=== PATIENT | male | born 1985 | race Caucasian/White ===

== ENCOUNTER 2020-12-09 02:14 | Emergency (ER) | payer MEDICAID, SELFPAY ==
[2020-12-09 03:10] VITALS: BP 97/58; PULSE 89; RESP 18; TEMP 36.3; O2SAT 97; BMI 23.3
--- NOTE | 2020-12-09 03:16 | PC.NURSE ---
MD NAYAK AT BEDSIDE FOR PRIMARY EVAL.
--- NOTE | 2020-12-09 03:22 | ED_ITS ---
HPI - General Adult General Chief complaint: General Medical Stated complaint: SOB Time Seen by Provider: 12/09/20 03:11 Source: patient Mode of arrival: ambulatory Limitations: no limitations History of Present Illness HPI narrative: Patient comes to emergency room complaining of general malaise, nausea, loose stool, stuffy nose. Patient states that a few days ago, he was prescribed amoxicillin for a toothache, patient states that he was not aware that this is penicillin which he is allergic to. Patient states that he had nausea and vomiting, denies rash, no shortness of breath, no foreign body sensation. Last dose of amoxicillin was on December 05. Patient states this afternoon patient went to [facility], had labs done, tested for COVID. Was asked to wait for results in the waiting room, patient got tired of waiting and came to the emergency room here in [place] complaint: Generalized malaise Related Data Previous Rx's Medication Instructions Recorded clindamycin HCl 300 mg PO BID 7 Days #14 cap 12/09/20 ondansetron HCl [Zofran] 4 mg PO Q8H PRN #14 tab 12/09/20 Allergies Allergy/AdvReac Type Severity Reaction Status Date / Time Penicillins [PENICILLINS] Allergy Severe HIVES Unverified 07/05/20 17:17 Review of Systems Review of Systems: Constitutional : Complaining of chills, fatigue, generalized malaise ENT/Mouth : No Hearing loss, No Ear Pain, No Nasal Congestion, No Sinus Pain, No Hoarseness, No sore throat, No Rhinorrhea, No Swallowing Difficulty Eyes: No Eye Pain, No Swelling, No Redness, No Foreign Body, No Discharge, No Vision Changes Cardiovascular : No Chest Pain, No SOB, No Dyspnea on Exertion, No Orthopnea, No Edema, No Palpitations Respiratory : No Cough, No Sputum, No Wheezing, No Smoke Exposure, No Dyspnea, complaining of nasal congestion Gastrointestinal : Complaining of nausea, vomiting, loose stools, No Constipation, No abdominal Pain, No Hematochezia, No Melena Genitourinary : no irregular bleeding, No Dysuria, No Urinary Frequency, No Hiro turia, No Urinary Incontinence, No Urgency, No Flank Pain, No Urinary Flow Changes, No Hesitancy Musculoskeletal : No joint pain, No Myalgias, No Joint Swelling Skin : No Skin Lesions, No rash Neuro : No Weakness, No Numbness, No Paresthesias, No Loss of Consciousness, No Dizziness, No Headache Psych : No Anxiety/Panic, No Depression, No SI/HI/AH/VH, No Social Issues, Heme/Lymph: No Bruising, No Bleeding,No Lymphadenopathy Endocrine : No Polyuria, No Polydipsia, No Temperature Intolerance [facility] Past Medical History Medical History Asthma Gastritis Ulcer Social History Social History Alcohol intake: never Smoking Status: Never smoker Advance Directives: No Advance Directives Information Provided: No Physical Exam Vital Signs: Vital Signs: Last Vital Signs Temp 97.4 F 12/09/20 03:10 Pulse 89 12/09/20 03:10 Resp 18 12/09/20 03:10 BP 97/58 L 12/09/20 03:10 Pulse Ox 97 12/09/20 03:10 Body Mass Index 23.3 Appearance: Alert. Oriented X3. No acute distress. Eyes: Pupils equal, round and reactive to light. ENT: Pharynx normal. Poor dentition especially in the maxillary right side Neck: Normal inspection. Neck supple. No lymph nodes noted. No crepitus CVS: Normal heart rate and rhythm. Pulses normal. Normal S1 and S2 Respiratory: No respiratory distress. Breath sounds normal. No Wheezing. No rales Abdomen: Soft and nontender. No rigidity. No distention. good BS x4 Skin: Skin warm and dry. Normal skin color. Normal skin turgor. Extremities: No lower extremity edema. No lower extremity edema. No Lacerations. No Rash Neuro: Oriented X 3. No motor deficit. No sensory deficit. Moving all extermities. No slurred speech. Course Course Course Narrative: We received patient's COVID test result from [facility], the results are negative Patient's white blood cell count elevation likely secondary to the dental infection. Patient has no URI symptoms. This time, patient no longer vomiting or feeling nauseous. No abdominal pain, no diarrhea. I discussed with the patient that I will switch his antibiotic to clindamycin Medical Decision Making Lab Data Result diagrams: 12/09/20 03:53 12/09/20 03:53 Labs: Lab Results 12/09/20 12/09/20 12/09/20 Range/Units 03:53 03:53 03:53 WBC 15.1 H (4.8-10.8) X10*3/uL RBC 5.84 H (4.60-5.80) X10*6/uL Hgb 18.1 H (14.0-18.0) g/dl Hct 50.0 (42-52) % MCV 85.6 (80-98) fL MCH 31.0 (27.0-33.0) pg MCHC 36.2 H (31.0-36.0) g/dl RDW 11.6 (11.0-16.0) % Plt Count 309 (160-400) X10*3/uL MPV 9.6 (9.4-12.4) fL Immature Gran % (Auto) 0.3 (0.0-0.4) % Neut % (Auto) 90.8 H (45-73) % Lymph % (Auto) 6.5 L (20-40) % [place] % (Auto) 2.2 (2-11) % Eos % (Auto) 0.0 (0-4) % Baso % (Auto) 0.2 (0-2) % Lymph # (Auto) 1.0 L (1.2-4.9) X10*3/uL [place] # (Auto) 0.3 (0.1-1.2) X10*3/uL Eos # (Auto) 0.0 (0.0-0.4) X10*3/uL Baso # (Auto) 0.0 (0.0-0.2) X10*3/uL Abs Immat Gran (auto) 0.05 H (0.00-0.03) X10*3/uL Absolute Neuts (auto) 13.7 H (2.0-8.3) X10*3/uL Absolute Nucleated RBC 0.000 (0.0-0.012) X10*3/uL Nucleated RBC % (auto) 0.0 (0.0-0.2) /100WBC Smear Tech's Comments VERIFIED Sodium 137 (135-145) mmol/L Potassium 4.3 (3.3-5.1) mmol/L Chloride 101 (96-108) mmol/L Carbon Dioxide 22 (22-29) mmol/L Anion Gap 18 (12-20) BUN 22 H (9-16) mg/dL Creatinine 1.32 (0.5-1.4) mg/dL Estim Creat Clear Calc 71.8 Estimated GFR > 60 Random Glucose 99 (60-115) mg/dL Calcium 9.6 (8.4-10.2) mg/dL Total Bilirubin 1.0 (0.0-1.0) mg/dL Direct Bilirubin 0.4 (0.0-0.5) mg/dL AST 20 (5-37) U/L ALT 17 (0-40) U/L Alkaline Phosphatase 78 (39-117) U/L Total Protein 7.6 (6.5-8.0) g/dL Albumin 4.6 (3.5-5.0) g/dL Lipase 5 L (8-78) U/L Discharge Plan Discharge Clinical Impression: Acute viral syndrome, Pain, dental Vomiting Qualifiers: Vomiting type: unspecified Vomiting Intractability: unspecified Nausea presence: unspecified Qualified Code(s): R11.10 - Vomiting, unspecified Patient Disposition: Home, Self-Care Instructions: Viral Syndrome (ED) Additional Instructions: Please follow-up with your primary care physician tomorrow. If you have any worsening or new symptoms, please return to the emergency room or call 911 Prescriptions: New clindamycin HCl 300 mg capsule 300 mg PO BID 7 Days Qty: 14 RF: 0 ondansetron HCl [Zofran] 4 mg tablet 4 mg PO Q8H PRN (Reason: nausea and vomiting) Qty: 14 RF: 0
[2020-12-09 04:03] LABS: Basophils Percent Auto 0.2 % (0-2); Hemoglobin 18.1 g/dl (14.0-18.0); Imm Gran Abs Auto 0.05 X10*3/uL (0.00-0.03); Imm Gran Pct Auto 0.3 % (0.0-0.4); Lymphocytes Percent Auto 6.5 % (20-40); MANUAL DIFF FLAG SCAN; Mean Corpuscular HGB Conc 36.2 g/dl (31.0-36.0); Mean Corpuscular Volume 85.6 fL (80-98); Mean Platelet Volume 9.6 fL (9.4-12.4); Monocytes Absolute Auto 0.3 X10*3/uL (0.1-1.2); Monocytes Percent Auto 2.2 % (2-11); Neutrophils Absolute Auto 13.7 X10*3/uL (2.0-8.3); Neutrophils Percent Auto 90.8 % (45-73); Platelet Count 309 X10*3/uL (160-400); Red Blood Count 5.84 X10*6/uL (4.60-5.80); Red Cell Distribution Width 11.6 % (11.0-16.0); SCAN SMEAR FLAG 1; White Blood Count 15.1 X10*3/uL (4.8-10.8)
[2020-12-09 04:10] LABS: SLIDE REVIEW VERIFIED
[2020-12-09 04:27] LABS: Alanine Aminotransferase 17 U/L (0-40); Albumin Level 4.6 g/dL (3.5-5.0); Alkaline Phosphatase 78 U/L (39-117); Anion Gap 18 (12-20); Aspartate Amino Transferase 20 U/L (5-37); Bilirubin Direct 0.4 mg/dL (0.0-0.5); Blood Urea Nitrogen 22 mg/dL (9-16); Calcium 9.6 mg/dL (8.4-10.2); Carbon Dioxide 22 mmol/L (22-29); Chloride 101 mmol/L (96-108); Creatinine Clr Calc Pharmacy 71.8; Estimated Glomerular Filt Rate > 60; Glucose Random 99 mg/dL (60-115); Lipase 5 U/L (8-78); Potassium 4.3 mmol/L (3.3-5.1); Sodium 137 mmol/L (135-145); Total Protein 7.6 g/dL (6.5-8.0)
== END 2020-12-09 05:50 | disposition home or self-care (01) ==
PROVIDERS: Emergency Provider Emergency Medicine
DX: B34.9 Viral infection, unspecified (principal); K08.89 Other specified disorders of teeth and supporting structures; R11.10 Vomiting, unspecified; R06.02 Shortness of breath; Z20.822 Contact with and (suspected) exposure to COVID-19; Z79.899 Other long term (current) drug therapy
CPT/HCPCS: 36415; 80048; 80076; 83690; 85025; 99283; 99284

== ENCOUNTER 2020-12-09 15:58 | Emergency (ER) | payer MEDICAID, SELFPAY ==
[2020-12-09] VITALS (7 sets, daily range): BP systolic 107–126; BP diastolic 64–85; PULSE 77–101; RESP 16–20; TEMP 36.5–36.8; O2SAT 97–100; BMI 23.3
--- NOTE | ~2020-12-09 | CT_ITS ---
EXAMINATION: CT ABDOMEN AND PELVIS WITH CONTRAST CLINICAL INFORMATION: Diffuse abdominal pain and leukocytosis COMPARISON: CT abdomen pelvis 08/31/2019 TECHNIQUE: Multidetector volumetric images were obtained from the superior aspect of the liver through the pubic symphysis following administration 85 mL of Omnipaque 350 intravenous contrast. Sagittal and coronal reformatted images were obtained on the technologist's workstation. Oral contrast: No This CT examination was performed using dose optimization techniques as appropriate, variously including the following: *Automated exposure control *Adjustment of mA and/or kV according to patient size (this includes techniques or standardized protocols for targeted exams where dose is matched to indication/reason for exam; i.e. extremities or head) *Use of iterative reconstruction technique DLP: 439 mGy-cm FINDINGS: LUNG BASES: The visualized lung bases are unremarkable. LIVER, GALLBLADDER, AND BILIARY TREE: The liver is normal in size, shape, and attenuation. No focal hepatic lesion or biliary ductal dilatation is present. The gallbladder is unremarkable with no evidence of radiopaque gallstones, gallbladder wall thickening, or obvious pericholecystic inflammatory changes. PANCREAS: Unremarkable. SPLEEN: Unremarkable. ADRENAL GLANDS: Unremarkable. KIDNEYS AND URETERS: The kidneys are normal in size, shape, and attenuation. No hydronephrosis, hydroureter, or calculi seen. No perinephric stranding. BLADDER: Unremarkable. GASTROINTESTINAL TRACT: The small and large bowel are unremarkable. The appendix is unremarkable. ABDOMINAL WALL: No significant hernia is appreciated. LYMPH NODES: Normal. VASCULAR: Unremarkable. PELVIC VISCERA: Unremarkable. OSSEOUS STRUCTURES: Unremarkable. CT/CT abdomen pelvis w con IMPRESSION: No significant abnormality. A cause for the patient's diffuse abdominal pain and leukocytosis has not been found.
--- NOTE | ~2020-12-09 | XR_ITS ---
EXAMINATION: XR ELBOW, RIGHT CLINICAL INFORMATION: Pain COMPARISON: None TECHNIQUE: AP, lateral, and oblique views of the right elbow. FINDINGS: Bone alignment is normal. No fracture or dislocation is seen. The joint spaces are normal. There is no joint effusion. XR/XR elbow RT min 3V IMPRESSION: Normal right elbow.
[2020-12-09 17:24] LABS: MANUAL DIFF FLAG NO
[2020-12-09 17:34] LABS: Basophils Absolute Auto 0.1 X10*3/uL (0.0-0.2); Basophils Percent Auto 0.4 % (0-2); Hematocrit 52.4 % (42-52); Hemoglobin 19.3 g/dl (14.0-18.0); Imm Gran Abs Auto 0.07 X10*3/uL (0.00-0.03); Imm Gran Pct Auto 0.4 % (0.0-0.4); Lymphocytes Absolute Auto 1.7 X10*3/uL (1.2-4.9); Lymphocytes Percent Auto 10.9 % (20-40); Mean Corpuscular HGB Conc 36.8 g/dl (31.0-36.0); Mean Corpuscular Hemoglobin 31.3 pg (27.0-33.0); Mean Corpuscular Volume 84.9 fL (80-98); Mean Platelet Volume 9.5 fL (9.4-12.4); Monocytes Absolute Auto 0.7 X10*3/uL (0.1-1.2); Monocytes Percent Auto 4.4 % (2-11); Neutrophils Absolute Auto 13.4 X10*3/uL (2.0-8.3); Neutrophils Percent Auto 83.9 % (45-73); Platelet Count 349 X10*3/uL (160-400); Red Blood Count 6.17 X10*6/uL (4.60-5.80); Red Cell Distribution Width 11.7 % (11.0-16.0)
[2020-12-09 18:02] LABS: Anion Gap 24 (12-20); Blood Urea Nitrogen 22 mg/dL (9-16); Calcium 10.1 mg/dL (8.4-10.2); Carbon Dioxide 21 mmol/L (22-29); Chloride 98 mmol/L (96-108); Creatinine Clr Calc Pharmacy 71.8; Estimated Glomerular Filt Rate > 60; Glucose Random 91 mg/dL (60-115); Sodium 139 mmol/L (135-145)
--- NOTE | 2020-12-09 19:07 | PC.NURSE ---
Pt actively vomiting in Triage. Pt was at [facility] yesterday but left prior to being seen and came to [facility]. Pt returns today and reports no relief of N/V, denies diarrhea/fever. Pt medicated with Zofran. VSS at this time.
--- NOTE | 2020-12-09 20:17 | ED_ITS ---
HPI - Nausea/Vomiting/Diarrhea General Chief complaint: Nausea/Vomiting/Diarrhea Stated complaint: vomiting blood Time Seen by Provider: 12/09/20 16:08 Source: patient Mode of arrival: ambulatory Limitations: no limitations History of Present Illness HPI Narrative: Patient history of gastritis in past when he was here had some right lower molar toothache on 12/04 took a dose of amoxicillin which he had at home patient allergic to penicillin for last 3 days patient has been throwing up was seen at [facility] and today here showed leukocytosis after reaching home patient vomited more and had bright red blood and some dark spots. Patient continued to have abdominal pain no fever no chills white counts were 16,000. Patient does not feel good unable to take anything by mouth denies any diarrhea no use of marijuana patient was seen earlier here today and change antibiotic to clindamycin. Patient does not have chronic tooth problems or swelling of the face MD elicited complaint: nausea and vomiting Description of vomiting: food contents, watery and blood-streaked Associated nausea: Yes Associated abdominal pain: Yes Location of pain: diffuse and epigastric Pain consistency: constant Severity: moderate Quality: cramping Exacerbating factors: none Relieving factors: none Related Data Previous Rx's Medication Instructions Recorded clindamycin HCl 300 mg PO BID 7 Days #14 cap 12/09/20 dicyclomine 20 mg PO QID PRN #20 tab 12/09/20 omeprazole 40 mg PO DAILY #30 cap 12/09/20 ondansetron HCl [Zofran] 4 mg PO Q8H PRN #14 tab 12/09/20 sucralfate [Carafate] 1 g PO Q6H #60 tab 12/09/20 Allergies Allergy/AdvReac Type Severity Reaction Status Date / Time Penicillins [PENICILLINS] Allergy Severe HIVES Unverified 07/05/20 17:17 Review of Systems Review of Systems: Constitutional : No Weight loss, No Fever, No Chills ENT/Mouth : No sore throat, No Rhinorrhea Eyes: No Eye Pain, No Swelling Cardiovascular : No Chest Pain, no palpitations Respiratory : No Cough, No Sputum, no shortness of breath Gastrointestinal : ++ Nausea, ++Vomiting, No Diarrhea, ++ abdominal Pain, no black stools Genitourinary : No Dysuria, No Urinary Frequency Musculoskeletal : No joint pain, No Myalgias, No Joint Swelling Skin : No Skin Lesions, No rash Neuro : No Weakness, No Numbness, No Dizziness, No Headache Psych : No Anxiety/Panic, No Depression Heme/Lymph: No Bruising, No Lymphadenopathy Endocrine : No Polyuria, No Polydipsia All other systems reviewed and are negative Gastrointestinal: Gastrointestinal: Reports nausea PMFSH Past Medical History Medical History Asthma Gastritis Ulcer Social History Social History Alcohol intake: never Smoking Status: Never smoker Use of substances other than those prescribed or required for medical reasons: No Advance Directives: No Advance Directives Information Provided: No Physical Exam Vital Signs: Vital Signs: Last Vital Signs Temp 97.8 F 12/09/20 22:31 Pulse 88 12/09/20 23:32 Resp 16 12/09/20 23:32 BP 116/64 12/09/20 23:32 Pulse Ox 97 12/09/20 22:31 Body Mass Index 23.3 APPEARANCE: ALERT. ORIENTED X3. IN MODERATE DISTRESS. EYES: PUPILS EQUAL, ROUND AND REACTIVE TO LIGHT. ENT: PHARYNX NORMAL. FILLING IN THE RIGHT LOWER MOLARS WITHOUT ANY SIGNIFICANT TENDERNESS, WITHOUT ANY GUM SWELLING NECK: NORMAL INSPECTION. NECK SUPPLE. CVS: NORMAL HEART RATE AND RHYTHM. PULSES NORMAL. RESPIRATORY: NO RESPIRATORY DISTRESS. BREATH SOUNDS NORMAL. ABDOMEN: SOFT DIFFUSE TENDERNESS EPIGASTRIC AREA DIFFUSE ABDOMEN NO RIGHT LOWER QUADRANT TENDERNESS NO REBOUND TENDERNESS OR GUARDING, BOWEL SOUNDS ARE PRESENT, NO MASS PALPABLE, NO CVA TENDERNESS SKIN: SKIN WARM AND DRY. NORMAL SKIN COLOR. NORMAL SKIN TURGOR. EXTREMITIES: NO LOWER EXTREMITY EDEMA. NEURO: ORIENTED X 3. NO MOTOR DEFICIT. NO SENSORY DEFICIT. MDM - Nausea/Vomiting/Diarrhea MDM Narrative Medical decision making narrative: Patient with history of chronic gastritis v omiting had some blood earlier H&H is stable likely from gastritis will discharge patient home on Prilosec Carafate, patient feeling much better after stay in the ER able take p.o. fluids without any vomiting Medical Records Attestation: I reviewed the patient's medical records. Lab Data Attestation: I reviewed the patient's lab results. Result diagrams: 12/09/20 17:17 12/09/20 17:17 Labs: Lab Results 12/09/20 12/09/2012/09/21 Range/Units 17:17 17:17 20:49 WBC 16.0 H (4.8-10.8) X10*3/uL RBC 6.17 H (4.60-5.80) X10*6/uL Hgb 19.3 H (14.0-18.0) g/dl Hct 52.4 H (42-52) % MCV 84.9 (80-98) fL MCH 31.3 (27.0-33.0) pg MCHC 36.8 H (31.0-36.0) g/dl RDW 11.7 (11.0-16.0) % Plt Count 349 (160-400) X10*3/uL MPV 9.5 (9.4-12.4) fL Immature Gran % (Auto) 0.4 (0.0-0.4) % Neut % (Auto) 83.9 H (45-73) % Lymph % (Auto) 10.9 L (20-40) % [place] % (Auto) 4.4 (2-11) % Eos % (Auto) 0.0 (0-4) % Baso % (Auto) 0.4 (0-2) % Lymph # (Auto) 1.7 (1.2-4.9) X10*3/uL [place] # (Auto) 0.7 (0.1-1.2) X10*3/uL Eos # (Auto) 0.0 (0.0-0.4) X10*3/uL Baso # (Auto) 0.1 (0.0-0.2) X10*3/uL Abs Immat Gran (auto) 0.07 H (0.00-0.03) X10*3/uL Absolute Neuts (auto) 13.4 H (2.0-8.3) X10*3/uL Absolute Nucleated RBC 0.000 (0.0-0.012) X10*3/uL Nucleated RBC % (auto) 0.0 (0.0-0.2) /100WBC Sodium 139 (135-145) mmol/L Potassium 4.0 (3.3-5.1) mmol/L Chloride 98 (96-108) mmol/L Carbon Dioxide 21 L (22-29) mmol/L Anion Gap 24 H (12-20) BUN 22 H (9-16) mg/dL Creatinine 1.32 (0.5-1.4) mg/dL Estim Creat Clear Calc 71.8 Estimated GFR > 60 Random Glucose 91 (60-115) mg/dL Lactic Acid 1.5 (0.5-2.0) mmol/L Calcium 10.1 (8.4-10.2) mg/dL Discharge Plan Discharge Clinical Impression: Acute gastritis Qualifiers: Gastritis type: unspecified gastritis Gastritis bleeding: with bleeding Qualified Code(s): K29.01 - Acute gastritis with bleeding Patient Disposition: Home, Self-Care Instructions: Gastritis (ED) Additional Instructions: Drink plenty of fluids avoid any fried food, take the medication as prescribed Prescriptions: New omeprazole 40 mg capsule,delayed release(DR/EC) 40 mg PO DAILY Qty: 30 RF: 0 sucralfate [Carafate] 1 gram tablet 1 g PO Q6H Qty: 60 RF: 0 dicyclomine 20 mg tablet 20 mg PO QID PRN (Reason: abdominal pain) Qty: 20 RF: 0 No Action clindamycin HCl 300 mg capsule 300 mg PO BID 7 Days Qty: 14 RF: 0 ondansetron HCl [Zofran] 4 mg tablet 4 mg PO Q8H PRN (Reason: nausea and vomiting) Qty: 14 RF: 0
[2020-12-09] MEDS: 0.9 % Sodium Chloride 1,000 ML 999 ML IVCONT (20:54)
[2020-12-09] MEDS: Pantoprazole Sodium 40 MG/10 ML VIAL IVPUSH (21:03)
[2020-12-09 21:20] LABS: Lactic Acid 1.5 mmol/L (0.5-2.0)
[2020-12-09] MEDS: iohexoL 350 MG/ML 100 ML INFUS..BTL IV (22:33)
--- NOTE | 2020-12-09 23:17 | PC.NURSE ---
Report taken from Basia. at bedside, plan for PO fluids, nausea medication and discharge.
[2020-12-09] MEDS: Dicyclomine HCl 10 MG CAPSULE 20 MG PO (23:27)
[2020-12-09] MEDS: Magnesium Hydrox/Alum Hydrox 30 ML ORAL.SUSP PO (23:27)
[2020-12-09] MEDS: ondansetron HCL 4 MG/2 ML VIAL IVPUSH (23:27)
--- NOTE | 2020-12-09 23:30 | PC.NURSE ---
Medicated per MAR. IV removed, VSS. Awaiting discharge paperwork.
== END 2020-12-09 23:56 | disposition home or self-care (01) ==
PROVIDERS: Emergency Provider Internal Medicine
DX: K29.01 Acute gastritis with bleeding (principal); Z79.899 Other long term (current) drug therapy
CPT/HCPCS: 36415; 73080; 74177; 80048; 83605; 85025; 87040; 96361; 96374; 96375; 99284; J2405; Q9967

== ENCOUNTER 2021-01-19 12:45 | Inpatient (IN) | payer MEDICAID, SELFPAY ==
[2021-01-19] VITALS (7 sets, daily range): BP systolic 139–160; BP diastolic 90–105; PULSE 105–150; RESP 14–28; TEMP 37–38.7; O2SAT 95–99; BMI 22.6
--- NOTE | ~2021-01-19 | XR_ITS ---
EXAMINATION: XR CHEST CLINICAL INFORMATION: Fever COMPARISON: None TECHNIQUE: Frontal view of the chest was obtained. FINDINGS: Normal cardiomediastinal silhouette. Adequate expansion of the lungs. No focal consolidation. No pleural effusion or pneumothorax. No acute osseous abnormality. XR/XR chest 1V IMPRESSION: No acute disease within the chest.
--- NOTE | ~2021-01-19 | CT_ITS ---
EXAMINATION: CT ANGIOGRAM OF THE CHEST WITH AND WITHOUT CONTRAST (CT PULMONARY ANGIOGRAM FOR PE) CLINICAL INFORMATION: Reason for Exam Tachycardia, elevated D-dimer, diff breathing COMPARISON: None TECHNIQUE: Prior to contrast administration, noncontrast localization images were obtained. Subsequently, multidetector volumetric imaging was performed from the thoracic inlet to below the diaphragms following the administration of 80 mL Omnipaque 350 intravenous contrast. No contrast reaction reported Sagittal, coronal, and MIP oblique sagittal reformatted images were obtained on the CT workstation, uploaded to PACS, and reviewed. This CT examination was performed using dose optimization techniques as appropriate, variously including the following: *Automated exposure control *Adjustment of mA and/or kV according to patient size (this includes techniques or standardized protocols for targeted exams where dose is matched to indication/reason for exam; i.e. extremities or head) *Use of iterative reconstruction technique Total exam dose-length product 229 mGy-cm FINDINGS: QUALITY OF STUDY/CONTRAST BOLUS: Satisfactory. PULMONARY ARTERIES: No central or segmental pulmonary emboli. THORACIC AORTA: No aneurysm or dissection. LUNG: No focal consolidation, nodules or masses. Focal atelectatic change seen in right costophrenic sulcus. PLEURA: No pleural effusion or pneumothorax. MEDIASTINUM: Normal heart size. No pericardial effusion. No hilar or mediastinal lymphadenopathy. No evidence of septal bowing or right heart strain. CHEST WALL/AXILLA: No axillary or internal mammary lymphadenopathy. OSSEOUS STRUCTURES: No lytic or sclerotic process seen UPPER ABDOMEN: Unremarkable. No reflux of contrast into the hepatic veins to suggest elevated right heart pressures. CT/CT angio chest PE protocol IMPRESSION: No evidence of PE. No evidence of aortic VTE: negative
--- NOTE | ~2021-01-19 | CT_ITS ---
EXAMINATION: CT ABDOMEN AND PELVIS WITHOUT CONTRAST CLINICAL INFORMATION: Right upper quadrant pain. COMPARISON: Previous CT scans of the abdomen and pelvis most recent 12/09/2019 TECHNIQUE: Multidetector volumetric imaging was performed from the superior aspect of the liver through the pubic symphysis. Sagittal and coronal reformatted images were obtained on the technologist's workstation. This CT examination was performed using dose optimization techniques as appropriate, variously including the following: *Automated exposure control *Adjustment of mA and/or kV according to patient size (this includes techniques or standardized protocols for targeted exams where dose is matched to indication/reason for exam; i.e. extremities or head) *Use of iterative reconstruction technique DLP: 364 mGy-cm FINDINGS: LUNG BASES: The visualized lung bases are unremarkable. LIVER, GALLBLADDER, AND BILIARY TREE: The liver is normal in size, shape, and attenuation. No focal hepatic lesion or biliary ductal dilatation is present. The gallbladder is unremarkable with no evidence of radiopaque gallstones, gallbladder wall thickening, or obvious pericholecystic inflammatory changes. PANCREAS: Unremarkable. SPLEEN: Unremarkable. ADRENAL GLANDS: Unremarkable. KIDNEYS AND URETERS: The kidneys are normal in size, shape, and attenuation. No hydronephrosis, hydroureter, or calculi seen. No perinephric stranding. BLADDER: Not optimally distended but appears unremarkable. GASTROINTESTINAL TRACT: There is diverticulosis of the colon. There is mild diffuse wall thickening of the entire colon suggestive of pancolitis. There is no evidence of obstruction, perforation or abscess. The small bowel is unremarkable. The appendix is not identified. The stomach is unremarkable. ABDOMINAL WALL: There is a small umbilical hernia containing fat. LYMPH NODES: Normal. VASCULAR: Unremarkable. PELVIC VISCERA: Unremarkable. OSSEOUS STRUCTURES: Unremarkable. CT/CT abdomen pelvis wo con IMPRESSION: New mild wall thickening of the entire colon suggestive of pancolitis. There is also diverticulosis of the colon without evidence of diverticulitis..
--- NOTE | 2021-01-19 12:50 | ECG_ITS ---
Test Reason : TACHYCARDIA Blood Pressure : / mmHG Vent. Rate : 114 BPM Atrial Rate : 114 BPM P-R Int : 166 ms QRS Dur : 088 ms QT Int : 336 ms P-R-T Axes : 058 053 -51 degrees QTc Int : 463 ms Sinus tachycardia Possible Left atrial enlargement ST & T wave abnormality, consider inferior ischemia Abnormal ECG No previous ECGs available Referred By: Delfin Marcano Electronically Signed By:Jaya Blank
[2021-01-19] MEDS: LORazepam 2 MG/ML VIAL 1 MG IVPUSH (13:05)
[2021-01-19] MEDS: 0.9 % Sodium Chloride 1,000 ML 999 ML IV (13:05)
--- NOTE | 2021-01-19 13:43 | ED_ITS ---
HPI - General Adult General Chief complaint: General Medical Stated complaint: diff breathing, n/v Time Seen by Provider: 01/19/21 12:48 Source: EMS Mode of arrival: EMS Limitations: no limitations History of Present Illness HPI narrative: 35-year-old male who reports history of gastritis and childhood asthma as well as history of occasional heroin use which he snorts he has never used IV heroin and over past couple days he developed some body aches, runny nose, congestion with nausea and vomiting. He denies any alcohol use. States he does not think this is related to his substance use. States his symptoms have been gradually getting worse over the past 3 days and worsened 2 days ago when he snorted a bag of heroin. States he has epigastric abdominal pain when he vomits otherwise no abdominal pain and he has generalized body aches with chills and night sweats. He denies any chest pain, shortness of breath. Furthermore he does report that he has had symptoms for 3 days and today felt like his was getting the symptoms as well. He comes via EMS slightly diaphoretic Onset (ago): day(s) Radiation: non-radiation Severity: moderate Severity scale (1-10): 10 (All over) Quality: aching Pain Consistency: constant Relieving factors: none Exacerbating factors: none Associated symptoms: fever/chills and nausea/vomiting Treatments prior to arrival: none Related Data Previous Rx's Medication Instructions Recorded dicyclomine 20 mg PO QID PRN #20 tab 12/09/20 omeprazole 40 mg PO DAILY #30 cap 12/09/20 ondansetron HCl [Zofran] 4 mg PO Q8H PRN #14 tab 12/09/20 sucralfate [Carafate] 1 g PO Q6H #60 tab 12/09/20 Allergies Allergy/AdvReac Type Severity Reaction Status Date / Time Penicillins [PENICILLINS] Allergy Severe HIVES Verified 01/19/21 15:25 Review of Systems Review of Systems: Constitutional: No Weight loss ENT/Mouth: No Hearing loss, No Ear Pain, No Nasal Congestion, No Sinus Pain, No Hoarseness, No sore throat, + Rhinorrhea, No Swallowing Difficulty Eyes: No Eye Pain, No Swelling, No Redness, No Foreign Body, No Discharge, No Vision Changes Cardiovascular: No Chest Pain, No SOB, No Dyspnea on Exertion, No Orthopnea, No Edema, No Palpitations Respiratory: No Cough, No Sputum, No Wheezing, No Smoke Exposure, No Dyspnea Gastrointestinal: No Diarrhea, No Constipation, No Hematochezia, No Melena Genitourinary: No Dysuria, No Urinary Frequency, No Hematuria, No Urinary Incontinence, No Urgency, No Flank Pain, No Urinary Flow Changes, No Hesitancy Musculoskeletal: No joint pain, + Myalgias, No Joint Swelling Skin: No Skin Lesions, No rash Neuro: No Weakness, No Numbness, No Paresthesias, No Loss of Consciousness, No Dizziness, No Headache Psych: No Anxiety/Panic, No Depression, No SI/HI/AH/VH, No Social Issues Heme/Lymph: No Bruising, No Bleeding,No Lymphadenopathy Endocrine: No Polyuria, No Polydipsia, No Temperature Intolerance Yes all other systems are reviewed and are negative [facility] Past Medical History Medical History Asthma Gastritis Ulcer Social History Social History Alcohol intake: never Smoking Status: Unknown if ever smoked Use of substances other than those prescribed or required for medical reasons: Yes Substance Use Type: Heroin Substance Use Frequency: Daily Advance Directives: No Advance Directives Information Provided: No Physical Exam Vital Signs: Vital Signs: Last Vital Signs Temp 101.7 F H 01/19/21 16:54 Pulse 106 H 01/19/21 16:54 Resp 14 01/19/21 16:54 BP 160/103 H 01/19/21 16:54 Pulse Ox 95 01/19/21 16:54 Body Mass Index 22.6 Reviewed Const: General: anxious and ill appearing; No intoxicated appearing N utritional Appearance: average body habitus Orientation/consciousness: patient oriented x3 HENMT: Head: Yes normal to inspection Ears: hearing grossly normal bilaterally Eyes: General: appearance normal, both eyes and all related structures Visual Hernandez: normal visual hernandez by confrontation Neck: Neck: Yes normal visual inspection, No positive Brudzinski's sign, No positive Kernig's sign and No tender Thyroid: Thyroid normal Chest: Chest palpation & inspection: normal inspection of the chest Resp: Effort & Inspection: normal respiratory effort Auscultation: clear to auscultation bilaterally Cardio: Jugular venous distension: no JVD Rate: tachycardic GI: Inspection: Yes normal to inspection Palpation (GI): Soft to palpation, nontender, no guarding and not rigid Percussion: Yes normal to percussion Auscultation: normal bowel sounds : General: Yes no CVA tenderness Back/Spine/Pelvis: Back: no CVA tenderness Skin: General skin exam: no rashes or lesions noted Neuro: General: patient oriented x3 Extrem: General: Yes normal to inspection Course Reevaluation(s) Reevaluation #1: Adamantly states that he only used 1 back of heroin which he snorted couple days ago and only occasionally uses. Upon arrival is tachycardic denies any use of cocaine or IV drugs. No fever on oral temp does feel slightly warm. He is dry heaving. Abdominal exam is benign. Does appear somewhat anxious as well. Will check COVID, chest x-ray, EKG and treat symptomatically. Denies any chest pain or shortness of breath at this time. Reevaluation #2: Persistently tachycardic even after Ativan and IV fluids rectal temp of 101 degrees. He is covered in multiple layers including sweat pants on was previously advised to remove this continues to cover himself. Given Tylenol p.o. and given these findings lactic acid and blood cultures are done w ith no lactic acidosis. His COVID/respiratory panel is negative. Slight elevation in D-dimer given his cocaine use CTA of the chest is currently being done. Elevation in troponin but no chest pain. Reevaluation #3: He is now more forthcoming states he uses several bags of heroin on a daily basis but maintains that he only snorts and does not use IV drugs. States he did not use today given that he is not feeling well. I suspect component of withdrawal as well as complaining of viral syndrome. Repeat troponin without delta. Has required several rounds of antiemetics for intermittent nausea and vomiting. At this time no clear source of infection suspect component of opiate withdrawal with superimposed viral syndrome. The troponin elevation is likely type B from the tachycardia and not acute myocardial infraction. Case will be discussed with cardiology Plan for admission; given his persistent nausea and vomiting requiring multiple rounds of antiemetic, fever, blood culture pending. Consultations Consultation #1: Case discussed with cardiology Dr. Blank including EKG reviews agrees type B from the tachycardia /viral syndrome aware that I will be admitting the patient given his continued symptoms. Will follow. Consultation #2: Case discussed with hospitalist [facility] except care to service will come evaluate the patient. I spoke to patient at length and given his inconsistent story about when he last used agrees that I will defer on Suboxone to further exacerbate his symptoms of withdrawal for potential precipitated withdrawal. Medical Decision Making Lab Data Lab results reviewed: Yes I reviewed the patient's lab results. Result diagrams: 01/19/21 13:42 01/19/21 13:42 Labs: Lab Results 01/19/21 01/19/21 01/19/21 Range/Units 13:42 13:42 13:42 WBC 16.5 H (4.8-10.8) X10*3/uL RBC 5.72 (4.60-5.80) X10*6/uL Hgb 17.4 (14.0-18.0) g/dl Hct 50.1 (42-52) % MCV 87.6 (80-98) fL MCH 30.4 (27.0-33.0) pg MCHC 34.7 (31.0-36.0) g/dl RDW 12.4 (11.0-16.0) % Plt Count 345 (160-400) X10*3/uL MPV 9.8 (9.4-12.4) fL Immature Gran % (Auto) 0.4 (0.0-0.4) % Neut % (Auto) 90.0 H (45-73) % Lymph % (Auto) 5.3 L (20-40) % [place] % (Auto) 4.1 (2-11) % Eos % (Auto) 0.0 (0-4) % Baso % (Auto) 0.2 (0-2) % Lymph # (Auto) 0.9 L (1.2-4.9) X10*3/uL [place] # (Auto) 0.7 (0.1-1.2) X10*3/uL Eos # (Auto) 0.0 (0.0-0.4) X10*3/uL Baso # (Auto) 0.0 (0.0-0.2) X10*3/uL Abs Immat Gran (auto) 0.07 H (0.00-0.03) X10*3/uL Absolute Neuts (auto) 14.8 H (2.0-8.3) X10*3/uL Absolute Nucleated RBC 0.000 (0.0-0.012) X10*3/uL Nucleated RBC % (auto) 0.0 (0.0-0.2) /100WBC PT 14.2 H (10.8-13.0) SEC INR 1.2 H (0.9-1.1) APTT 35.0 (24.1-38.0) SEC D-Dimer 261 NG/ML Sodium 143 (135-145) mmol/L Potassium 4.2 (3.3-5.1) mmol/L Chloride 101 (96-108) mmol/L Carbon Dioxide 29 (22-29) mmol/L Anion Gap 17 (12-20) BUN 17 H (9-16) mg/dL Creatinine 1.29 (0.5-1.4) mg/dL Estim Creat Clear Calc 73.1 Estimated GFR > 60 Random Glucose 96 (60-115) mg/dL Lactic Acid (0.5-2.0) mmol/L Calcium 9.6 (8.4-10.2) mg/dL Total Bilirubin 1.1 H (0.0-1.0) mg/dL AST 15 (5-37) U/L ALT 13 (0-40) U/L Alkaline Phosphatase 73 (39-117) U/L Total Creatine Kinase 47 (38-174) U/L Troponin I High Sens (<3.5-35.0) ng/L Total Protein 7.8 (6.5-8.0) g/dL Albumin 4.9 (3.5-5.0) g/dL Urine Color Urine Appearance Urine pH (5.0-8.0) Ur Specific [place] (1.005-1.025) Urine Protein (NEG-TRACE) MG/DL Urine Glucose (UA) (NEG) MG/DL Urine Ketones (NEG) MG/DL Urine Blood (NEG) Urine Nitrite (NEG) Ur Leukocyte Esterase (NEG) Urine RBC (0) /HPF Urine WBC (0-4) /HPF Ur Squamous Epith Cells /LPF Urine Bacteria /LPF Hyaline Casts /LPF Urine Mucus /LPF Urine Opiates Screen (Not Detect) Ur Barbiturates Screen (Not Detect) Ur Phencyclidine Scrn (Not Detect) Ur Amphetamines Screen (Not Detect) U Benzodiazepines Scrn (Not Detect) Urine Cocaine Screen (Not Detect) U Marijuana (THC) Screen (Not Detect) Ethyl Alcohol mg/dL Coronavirus (PCR) (Negative) Influenza Type A (PCR) (Negative) Influenza Type B (PCR) (Negative) RSV RNA Qual (PCR) (Negative) 01/19/21 01/19/21 01/19/21 Range/Units 13:42 13:42 15:12 WBC (4.8-10.8) X10*3/uL RBC (4.60-5.80) X10*6/uL Hgb (14.0-18.0) g/dl Hct (42-52) % MCV (80-98) fL MCH (27.0-33.0) pg MCHC (31.0-36.0) g/dl RDW (11.0-16.0) % Plt Count (160-400) X10*3/uL MPV (9.4-12.4) fL Immature Gran % (Auto) (0.0-0.4) % Neut % (Auto) (45-73) % Lymph % (Auto) (20-40) % [place] % (Auto) (2-11) % Eos % (Auto) (0-4) % Baso % (Auto) (0-2) % Lymph # (Auto) (1.2-4.9) X10*3/uL [place] # (Auto) (0.1-1.2) X10*3/uL Eos # (Auto) (0.0-0.4) X10*3/uL Baso # (Auto) (0.0-0.2) X10*3/uL Abs Immat Gran (auto) (0.00-0.03) X10*3/uL Absolute Neuts (auto) (2.0-8.3) X10*3/uL Absolute Nucleated RBC (0.0-0.012) X10*3/uL Nucleated RBC % (auto) (0.0-0.2) /100WBC PT (10.8-13.0) SEC INR (0.9-1.1) APTT (24.1-38.0) SEC D-Dimer NG/ML Sodium (135-145) mmol/L Potassium (3.3-5.1) mmol/L Chloride (96-108) mmol/L Carbon Dioxide (22-29) mmol/L Anion Gap (12-20) BUN (9-16) mg/dL Creatinine (0.5-1.4) mg/dL Estim Creat Clear Calc Estimated GFR Random Glucose (60-115) mg/dL Lactic Acid 1.6 (0.5-2.0) mmol/L Calcium (8.4-10.2) mg/dL Total Bilirubin (0.0-1.0) mg/dL AST (5-37) U/L ALT (0-40) U/L Alkaline Phosphatase (39-117) U/L Total Creatine Kinase (38-174) U/L Troponin I High Sens 142.8 H (<3.5-35.0) ng/L Total Protein (6.5-8.0) g/dL Albumin (3.5-5.0) g/dL Urine Color Urine Appearance Urine pH (5.0-8.0) Ur Specific [place] (1.005-1.025) Urine Protein (NEG-TRACE) MG/DL Urine Glucose (UA) (NEG) MG/DL Urine Ketones (NEG) MG/DL Urine Blood (NEG) Urine Nitrite (NEG) Ur Leukocyte Esterase (NEG) Urine RBC (0) /HPF Urine WBC (0-4) /HPF Ur Squamous Epith Cells /LPF Urine Bacteria /LPF Hyaline Casts /LPF Urine Mucus /LPF Urine Opiates Screen (Not Detect) Ur Barbiturates Screen (Not Detect) Ur Phencyclidine Scrn (Not Detect) Ur Amphetamines Screen (Not Detect) U Benzodiazepines Scrn (Not Detect) Urine Cocaine Screen (Not Detect) U Marijuana (THC) Screen (Not Detect) Ethyl Alcohol mg/dL Coronavirus (PCR) NEGATIVE (Negative) Influenza Type A (PCR) NEGATIVE (Negative) Influenza Type B (PCR) NEGATIVE (Negative) RSV RNA Qual (PCR) NEGATIVE (Negative) 01/19/21 01/19/21 01/19/21 Range/Units 15:12 15:12 15:12 WBC (4.8-10.8) X10*3/uL RBC (4.60-5.80) X10*6/uL Hgb (14.0-18.0) g/dl Hct (42-52) % MCV (80-98) fL MCH (27.0-33.0) pg MCHC (31.0-36.0) g/dl RDW (11.0-16.0) % Plt Count (160-400) X10*3/uL MPV (9.4-12.4) fL Immature Gran % (Auto) (0.0-0.4) % Neut % (Auto) (45-73) % Lymph % (Auto) (20-40) % [place] % (Auto) (2-11) % Eos % (Auto) (0-4) % Baso % (Auto) (0-2) % Lymph # (Auto) (1.2-4.9) X10*3/uL [place] # (Auto) (0.1-1.2) X10*3/uL Eos # (Auto) (0.0-0.4) X10*3/uL Baso # (Auto) (0.0-0.2) X10*3/uL Abs Immat Gran (auto) (0.00-0.03) X10*3/uL Absolute Neuts (auto) (2.0-8.3) X10*3/uL Absolute Nucleated RBC (0.0-0.012) X10*3/uL Nucleated RBC % (auto) (0.0-0.2) /100WBC PT (10.8-13.0) SEC INR (0.9-1.1) APTT (24.1-38.0) SEC D-Dimer NG/ML Sodium (135-145) mmol/L Potassium (3.3-5.1) mmol/L Chloride (96-108) mmol/L Carbon Dioxide (22-29) mmol/L Anion Gap (12-20) BUN (9-16) mg/dL Creatinine (0.5-1.4) mg/dL Estim Creat Clear Calc Estimated GFR Random Glucose (60-115) mg/dL Lactic Acid (0.5-2.0) mmol/L Calcium (8.4-10.2) mg/dL Total Bilirubin (0.0-1.0) mg/dL AST (5-37) U/L ALT (0-40) U/L Alkaline Phosphatase (39-117) U/L Total Creatine Kinase (38-174) U/L Troponin I High Sens (<3.5-35.0) ng/L Total Protein (6.5-8.0) g/dL Albumin (3.5-5.0) g/dL Urine Color YELLOW Urine Appearance CLEAR Urine pH 5.5 (5.0-8.0) Ur Specific [place] >= 1.030 H (1.005-1.025) Urine Protein 2+ H (NEG-TRACE) MG/DL Urine Glucose (UA) NEG (NEG) MG/DL Urine Ketones >=80 (NEG) MG/DL Urine Blood TRACE (NEG) Urine Nitrite NEG (NEG) Ur Leukocyte Esterase NEG (NEG) Urine RBC 0-2 (0) /HPF Urine WBC 0-2 (0-4) /HPF Ur Squamous Epith Cells TRACE /LPF Urine Bacteria NONE /LPF Hyaline Casts 0-2 /LPF Urine Mucus TRACE /LPF Urine Opiates Screen POSITIVE H (Not Detect) Ur Barbiturates Screen Not Detected (Not Detect) Ur Phencyclidine Scrn Not Detected (Not Detect) Ur Amphetamines Screen Not Detected (Not Detect) U Benzodiazepines Scrn Not Detected (Not Detect) Urine Cocaine Screen POSITIVE H (Not Detect) U Marijuana (THC) Screen POSITIVE H (Not Detect) Ethyl Alcohol < 10 mg/dL Coronavirus (PCR) (Negative) Influenza Type A (PCR) (Negative) Influenza Type B (PCR) (Negative) RSV RNA Qual (PCR) (Negative) 01/19/21 Range/Units 16:57 WBC (4.8-10.8) X10*3/uL RBC (4.60-5.80) X10*6/uL Hgb (14.0-18.0) g/dl Hct (42-52) % MCV (80-98) fL MCH (27.0-33.0) pg MCHC (31.0-36.0) g/dl RDW (11.0-16.0) % Plt Count (160-400) X10*3/uL MPV (9.4-12.4) fL Immature Gran % (Auto) (0.0-0.4) % Neut % (Auto) (45-73) % Lymph % (Auto) (20-40) % [place] % (Auto) (2-11) % Eos % (Auto) (0-4) % Baso % (Auto) (0-2) % Lymph # (Auto) (1.2-4.9) X10*3/uL [place] # (Auto) (0.1-1.2) X10*3/uL Eos # (Auto) (0.0-0.4) X10*3/uL Baso # (Auto) (0.0-0.2) X10*3/uL Abs Immat Gran (auto) (0.00-0.03) X10*3/uL Absolute Neuts (auto) (2.0-8.3) X10*3/uL Absolute Nucleated RBC (0.0-0.012) X10*3/uL Nucleated RBC % (auto) (0.0-0.2) /100WBC PT (10.8-13.0) SEC INR (0.9-1.1) APTT (24.1-38.0) SEC D-Dimer NG/ML Sodium (135-145) mmol/L Potassium (3.3-5.1) mmol/L Chloride (96-108) mmol/L Carbon Dioxide (22-29) mmol/L Anion Gap (12-20) BUN (9-16) mg/dL Creatinine (0.5-1.4) mg/dL Estim Creat Clear Calc Estimated GFR Random Glucose (60-115) mg/dL Lactic Acid (0.5-2.0) mmol/L Calcium (8.4-10.2) mg/dL Total Bilirubin (0.0-1.0) mg/dL AST (5-37) U/L ALT (0-40) U/L Alkaline Phosphatase (39-117) U/L Total Creatine Kinase (38-174) U/L Troponin I High Sens 136.0 H (<3.5-35.0) ng/L Total Protein (6.5-8.0) g/dL Albumin (3.5-5.0) g/dL Urine Color Urine Appearance Urine pH (5.0-8.0) Ur Specific [place] (1.005-1.025) Urine Protein (NEG-TRACE) MG/DL Urine Glucose (UA) (NEG) MG/DL Urine Ketones (NEG) MG/DL Urine Blood (NEG) Urine Nitrite (NEG) Ur Leukocyte Esterase (NEG) Urine RBC (0) /HPF Urine WBC (0-4) /HPF Ur Squamous Epith Cells /LPF Urine Bacteria /LPF Hyaline Casts /LPF Urine Mucus /LPF Urine Opiates Screen (Not Detect) Ur Barbiturates Screen (Not Detect) Ur Phencyclidine Scrn (Not Detect) Ur Amphetamines Screen (Not Detect) U Benzodiazepines Scrn (Not Detect) Urine Cocaine Screen (Not Detect) U Marijuana (THC) Screen (Not Detect) Ethyl Alcohol mg/dL Coronavirus (PCR) (Negative) Influenza Type A (PCR) (Negative) Influenza Type B (PCR) (Negative) RSV RNA Qual (PCR) (Negative) Imaging Data Chest x-ray: Radiologist's impression: [address] [id number] ReportSigned Patient: Steve Marquez#: [id number]: 1985Acct:[id number]/Sex: 35 / MADM Date: 01/19/21Loc: EDAttpatricia Dr: Ordering Physician: Delfin Marcano NP Date of Service: 01/19/21 Procedure(s): XR chest 1V Accession Number(s): [id number] cc: Delfin Marcano CUSTOMER ACCOUNT TECHNICIAN~ EXAMINATION: XR CHEST CLINICAL INFORMATION: Fever COMPARISON: None TECHNIQUE: Frontal view of the chest was obtained. FINDINGS: Normal cardiomediastinal silhouette. Adequate expansion of the lungs. No focal consolidation. No pleural effusion or pneumothorax. No acute osseous abnormality. XR/XR chest 1V IMPRESSION: No acute disease within the chest. Dictated By:FRANKI KING MDSigned By:<Electronically signed by FRANKI KING MD in OV>01/19/21 1325 DD/ 1250TD/TT: Hvac Project Manager: ANDRIY Chest CTA: Radiologist's impression: Colin Marquez 35 M [address] [id number] Scan ReportSigned Patient: Steve Marquez#: [id number]: 1985Acct:[id number]/Sex: 35 / MADM Date: 01/19/21Loc: [email or web address].EDAttending Dr: Ordering Physician: Delfin Marcano NP Date of Service: 01/19/21 Procedure(s): CT angio chest PE protocol Accession Number(s): [id number] cc: Delfin Marcano CUSTOMER ACCOUNT TECHNICIAN~ EXAMINATION: CT ANGIOGRAM OF THE CHEST WITH AND WITHOUT CONTRAST (CT PULMONARY ANGIOGRAM FOR PE) CLINICAL INFORMATION: Reason for Exam Tachycardia, elevated D-dimer, diff breathing COMPARISON: None TECHNIQUE: Prior to contrast administration, noncontrast localization images were obtained. Subsequently, multidetector volumetric imaging was performed from the thoracic inlet to below the diaphragms following the administration of 80 mL Omnipaque 350 intravenous contrast. No contrast reaction reported Sagittal, coronal, and MIP oblique sagittal reformatted images were obtained on the CT workstation, uploaded to PACS, and reviewed. This CT examination was performed using dose optimization techniques as appropriate, variously including the following: *Automated exposure control *Adjustment of mA and/or kV according to patient size (this includes techniques or standardized protocols for targeted exams where dose is matched to indication/reason for exam; i.e. extremities or head) *Use of iterative reconstruction technique Total exam dose-length product 229 mGy-cm FINDINGS: QUALITY OF STUDY/CONTRAST BOLUS: Satisfactory. PULMONARY ARTERIES: No central or segmental pulmonary emboli. THORACIC AORTA: No aneurysm or dissection. LUNG: No focal consolidation, nodules or masses. Focal atelectatic change seen in right costophrenic sulcus. PLEURA: No pleural effusion or pneumothorax. MEDIASTINUM: Normal heart size. No pericardial effusion. No hilar or mediastinal lymphadenopathy. No evidence of septal bowing or right heart strain. CHEST WALL/AXILLA: No axillary or internal mammary lymphadenopathy. OSSEOUS STRUCTURES: No lytic or sclerotic process seen UPPER ABDOMEN: Unremarkable. No reflux of contrast into the hepatic veins to suggest elevated right heart pressures. CT/CT angio chest PE protocol IMPRESSION: No evidence of PE. No evidence of aortic VTE: negative Dictated By:ALEX MATHIS MDSigned By:<Electronically signed by ALEX MATHIS MD in OV>01/19/21 1610 DD/ 1451TD/TT: Hvac Project Manager: PO ECG Data Interpretation: Sinus tachycardia Rate 1 1 for Possible Left atrial enlargement ST & T wave abnormality, consider inferior ischemia Abnormal ECG No previous ECGs available EKG 2. Sinus tachycardia No significant change from previous sinus tachycardia Rate [address] changes as previously seen on previous EKG Otherwise no ST segment elevation. Discharge Plan Discharge Clinical Impression: Opiate withdrawal, Acute viral syndrome, Elevated troponin, Intractable nausea and vomiting, Polysubstance abuse Patient Disposition: Admitted As Inpatient Prescriptions: No Action omeprazole 40 mg capsule,delayed release(DR/EC) 40 mg PO DAILY Qty: 30 RF: 0 sucralfate [Carafate] 1 gram tablet 1 g PO Q6H Qty: 60 RF: 0 dicyclomine 20 mg tablet 20 mg PO QID PRN (Reason: abdominal pain) Qty: 20 RF: 0 ondansetron HCl [Zofran] 4 mg tablet 4 mg PO Q8H PRN (Reason: nausea and vomiting) Qty: 14 RF: 0
[2021-01-19 13:50] LABS: MANUAL DIFF FLAG NO
[2021-01-19 13:52] LABS: Basophils Percent Auto 0.2 % (0-2); Hematocrit 50.1 % (42-52); Hemoglobin 17.4 g/dl (14.0-18.0); Imm Gran Abs Auto 0.07 X10*3/uL (0.00-0.03); Imm Gran Pct Auto 0.4 % (0.0-0.4); Lymphocytes Absolute Auto 0.9 X10*3/uL (1.2-4.9); Lymphocytes Percent Auto 5.3 % (20-40); Mean Corpuscular HGB Conc 34.7 g/dl (31.0-36.0); Mean Corpuscular Hemoglobin 30.4 pg (27.0-33.0); Mean Corpuscular Volume 87.6 fL (80-98); Mean Platelet Volume 9.8 fL (9.4-12.4); Monocytes Absolute Auto 0.7 X10*3/uL (0.1-1.2); Monocytes Percent Auto 4.1 % (2-11); Neutrophils Absolute Auto 14.8 X10*3/uL (2.0-8.3); Platelet Count 345 X10*3/uL (160-400); Red Blood Count 5.72 X10*6/uL (4.60-5.80); Red Cell Distribution Width 12.4 % (11.0-16.0); White Blood Count 16.5 X10*3/uL (4.8-10.8)
[2021-01-19 13:58] LABS: INTERNATIONAL NORM RATIO 1.2 (0.9-1.1); Prothrombin Time 14.2 SEC (10.8-13.0)
[2021-01-19 14:17] LABS: Alanine Aminotransferase 13 U/L (0-40); Albumin Level 4.9 g/dL (3.5-5.0); Alkaline Phosphatase 73 U/L (39-117); Anion Gap 17 (12-20); Aspartate Amino Transferase 15 U/L (5-37); Bilirubin Total 1.1 mg/dL (0.0-1.0); Blood Urea Nitrogen 17 mg/dL (9-16); Calcium 9.6 mg/dL (8.4-10.2); Carbon Dioxide 29 mmol/L (22-29); Chloride 101 mmol/L (96-108); Creatinine Clr Calc Pharmacy 73.1; Estimated Glomerular Filt Rate > 60; Glucose Random 96 mg/dL (60-115); Potassium 4.2 mmol/L (3.3-5.1); Sodium 143 mmol/L (135-145); Total Protein 7.8 g/dL (6.5-8.0)
[2021-01-19 14:26] LABS: Troponin-I High Sensitivity 142.8 ng/L (<3.5-35.0)
[2021-01-19 14:36] LABS: Influenza A PCR NEGATIVE (Negative); Influenza B PCR NEGATIVE (Negative); Resp Syncy Virus RNA Qual PCR NEGATIVE (Negative); SARS COV2 PCR INHOUSE NEGATIVE (Negative)
[2021-01-19 14:47] LABS: D Dimer 261 NG/ML
[2021-01-19] MEDS: Acetaminophen 325 MG TABLET 975 MG PO (15:06)
--- NOTE | 2021-01-19 15:14 | PC.NURSE ---
Pt presents to the ED with c/o chills, body aches, and n/v x 2 days. He is alert, rr even, speaks in full sentences, skin is pwi and mildly diaphoretic. Delfin, SNORKELLING INSTRUCTOR in to see pt and provided orders. Pt will be given a septic septic w/up. IV line established, blood being obtained and sent. Pt tachycardic on the monitor, nauseas, and vomiting. He has been medicated per emar.
[2021-01-19 15:27] LABS: Appearance Urine CLEAR; Color Urine YELLOW; Glucose Urine UA NEG (NEG); Leukocyte Esterase Urine NEG (NEG); Nitrite Urine NEG (NEG); PH 5.5 (5.0-8.0); Specific Gravity - Urine >= 1.030 (1.005-1.025); Urine Blood TRACE (NEG); Urine Ketones >=80 MG/DL (NEG); Urine Protein 2+ MG/DL (NEG-TRACE)
[2021-01-19 15:36] LABS: Hyaline Casts Urine 0-2 /LPF; Mucus Urine TRACE /LPF; RBC Urine 0-2 /HPF (0); Squamous Epithelial Cell Urine TRACE /LPF; WBC Urine 0-2 /HPF (0-4)
[2021-01-19] MEDS: ondansetron HCL 4 MG/2 ML VIAL IVPUSH (15:40)
[2021-01-19] MEDS: cloNIDine HCL 0.1 MG TABLET PO (15:40)
[2021-01-19 15:44] LABS: Lactic Acid 1.6 mmol/L (0.5-2.0)
[2021-01-19 15:45] LABS: Ethanol < 10 mg/dL
[2021-01-19 15:48] LABS: Amphetamine Screen Urine Not Detected (Not Detect); Barbiturates, Urine Not Detected (Not Detect); Benzodiazepines Screen Urine Not Detected (Not Detect); Cannabinoid Screen Urine POSITIVE (Not Detect); Cocaine Screen Urine POSITIVE (Not Detect); Opiate Screen Urine POSITIVE (Not Detect); Phencyclidine Screen Urine Not Detected (Not Detect)
[2021-01-19] MEDS: iohexoL 350 MG/ML 75 ML INFUS..BTL IV (16:02)
[2021-01-19] MEDS: diphenhydrAMINE HCL 50 MG/ML VIAL 25 MG IVPUSH (16:39)
[2021-01-19] MEDS: Metoclopramide HCl 10 MG/2 ML VIAL IVPUSH (16:39)
--- NOTE | 2021-01-19 16:50 | ECG_ITS ---
Test Reason : REPEAT Blood Pressure : / mmHG Vent. Rate : 115 BPM Atrial Rate : 115 BPM P-R Int : 096 ms QRS Dur : 080 ms QT Int : 308 ms P-R-T Axes : 068 050 -53 degrees QTc Int : 426 ms Sinus tachycardia with short OH Nonspecific ST and T wave abnormality Abnormal ECG When compared with ECG of 19-JAN-2021 13:34, No significant change was found Referred By: Delfin Marcano Electronically Signed By:Jaya Blank
[2021-01-19] MEDS: Famotidine/PF 20 MG/2 ML VIAL IVPUSH ×2 (18:31→20:20)
[2021-01-19] MEDS: dilTIAZem HCL 50 MG/10 ML VIAL 10 MG IVPUSH (18:31)
--- NOTE | 2021-01-19 18:32 | PM.EVENT ---
Event Note Date of Service: 01/19/21 Event Note: Patient seen examined case discussed with APC old chart reviewed This is a 35-year-old gentleman with history of opiate abuse recently evaluated at [facility] on December 09 due to symptoms of generalized malaise nausea lose stools stuffy nose, patient also had a tooth infection and was treated with clindamycin had a negative COVID study, patient presented to [facility] today due to complaints of generalized body ache, weakness, nausea, vomiting,abdominal pain, of few days duration, he denies diarrhea no cough no sputum production, no urinary symptoms, no penile discharge, denies skin lesion denies IV drug use, patient admits of using heroin but denies use of cocaine although urine tox is positive for opiates cocaine and marijuana His labs showed elevated WBC count of 16,500, normal electrolytes BUN 17, UA and chest x-ray showed no acute abnormality CTA chest showed no PE, elevated troponin but flat On examination Skin flash Lungs clear to auscultation Heart tachy regular Abdomen soft, diffuse tenderness to palpation, no masses, no rigidity, bowel sound audible Extremities without edema Skin with multiple tattoos no rash no redness no pustules Assessment and plan 35-year-old with generalized weakness nausea vomiting abdominal pain and fever with no source of infection likely due to viral syndrome versus due to reaction to laced cocaine/opiates , dry heaving related to marijuana use Since patient with significant tachycardia, elevated troponin and hypertension likely due to cocaine, will treat him with IV Cardizem, obtain echocardiogram, strongly advised to abstain from cocaine Treat him with anti emetics IV fluids supportive care Use morphine and clonidine for withdrawal symptoms Care team consultation Continue tele monitor No acute etiology found for GI symptoms with negative recent CT abdomen likely related to gastritis and cocaine use.
--- NOTE | 2021-01-19 18:33 | PM.IMHP ---
History of Present Illness Date of Service: 01/19/21 Chief Complaint: Abdominal pain 35 man presenting to complains nausea, vomiting and diffuse abdominal pain. He also reported fever and chills. He snorts heroin at least 1 bundle a day and uses marijuana and cocaine although he denies. He also denies alcohol abuse. He denies injection of heroin. Of the last couple days he reports body aches, runny nose, congestion nausea and vomiting. He denies any sick contacts, recent illness or recent travel. He reports abdominal pain with nausea and vomiting to be chronic since he was a child. His troponin was noted to be elevated at 142.8, 136.0, EKG showed left ventricular hypertrophy. He reported that he had some midsternal chest pressure that would come and go over the last several days without radiation. But most of his pain seems to be diffuse. He was noted to be tachycardic up to the 150s with temperature of 100.9 degrees. His blood pressure also peaked at 160/103. chest CT negative for PTE, chest x-ray negative for consolidation or effusion, urinalysis negative for infection, and no skin rash or open wounds noted. he was given multiple medications in the ER for his nausea including lorazepam, Zofran, Reglan, Benadryl, Pepcid. He was given a dose of diltiazem for his tachycardia. Will be admitted for further management and treatment of viral syndrome, and cocaine related troponin elevation. Review of Systems Review of Systems: Denies any recent fever chills or decrease in appetite respiratory denies any shortness of breath coverage production cardiovascular See above gastrointestinal See above genitourinary denies any dysuria frequency or hematuria musculoskeletal denies any joint pain or swelling neuropsych denies any weakness or seizures all other systems reviewed are negative [facility] Medical History Asthma Gastritis Ulcer Social History Alcohol intake: never Smoking Status: Unknown if ever smoked Use of substances other than those prescribed or required for medical reasons: Yes Substance Use Type: Heroin Substance Use Frequency: Daily Advance Directives: No Advance Directives Information Provided: No Meds Allergies Allergy/AdvReac Type Severity Reaction Status Date / Time Penicillins [PENICILLINS] Allergy Severe HIVES Verified 01/19/21 15:25 Physical Exam Vital Signs and Narrative: Vital Signs: Last Vital Signs Temp 101.7 F H 01/19/21 16:54 Pulse 118 H 01/19/21 18:00 Resp 19 01/19/21 18:00 BP 143/93 H 01/19/21 18:00 Pulse Ox 97 01/19/21 18:00 Body Mass Index 22.6 Skin flushed, shaky head is normocephalic atraumatic eyes pupils are PERRLA sclera is anicteric mouth throat mucous membranes are intact and moist lung sounds normal expansion heart regular rate rhythm abdomen tender neuro patient is alert x3, no focal deficits Results Labs CBC and Chem 7: 01/20/21 06:45 01/20/21 06:45 Labs: Laboratory Results - last 24 hr 01/19/21 01/19/21 01/19/21 13:42 13:42 13:42 MCV 87.6 MCH 30.4 MCHC 34.7 RDW 12.4 Plt Count 345 MPV 9.8 Immature Gran % (Auto) 0.4 Neut % (Auto) 90.0 H Lymph % (Auto) 5.3 L [place] % (Auto) 4.1 Eos % (Auto) 0.0 Baso % (Auto) 0.2 Lymph # (Auto) 0.9 L [place] # (Auto) 0.7 Eos # (Auto) 0.0 Baso # (Auto) 0.0 Abs Immat Gran (auto) 0.07 H Absolute Neuts (auto) 14.8 H Absolute Nucleated RBC 0.000 Nucleated RBC % (auto) 0.0 PT 14.2 H INR 1.2 H APTT 35.0 D-Dimer 261 Anion Gap 17 Estim Creat Clear Calc 73.1 Estimated GFR > 60 Random Glucose 96 Lactic Acid Calcium 9.6 Total Bilirubin 1.1 H AST 15 ALT 13 Alkaline Phosphatase 73 Total Creatine Kinase 47 Troponin I High Sens Total Protein 7.8 Albumin 4.9 Urine Color Urine Appearance Urine pH Ur Specific [place] Urine Protein Urine Glucose (UA) Urine Ketones Urine Blood Urine Nitrite Ur Leukocyte Esterase Urine RBC Urine WBC Ur Squamous Epith Cells Urine Bacteria Hyaline Casts Urine Mucus Urine Opiates Screen Ur Barbiturates Screen Ur Phencyclidine Scrn Ur Amphetamines Screen U Benzodiazepines Scrn Urine Cocaine Screen U Marijuana (THC) Screen Ethyl Alcohol Coronavirus (PCR) Influenza Type A (PCR) Influenza Type B (PCR) RSV RNA Qual (PCR) 01/19/21 01/19/21 01/19/21 13:42 13:42 15:12 MCV MCH MCHC RDW Plt Count MPV Immature Gran % (Auto) Neut % (Auto) Lymph % (Auto) [place] % (Auto) Eos % (Auto) Baso % (Auto) Lymph # (Auto) [place] # (Auto) Eos # (Auto) Baso # (Auto) Abs Immat Gran (auto) Absolute Neuts (auto) Absolute Nucleated RBC Nucleated RBC % (auto) PT INR APTT D-Dimer Anion Gap Estim Creat Clear Calc Estimated GFR Random Glucose Lactic Acid 1.6 Calcium Total Bilirubin AST ALT Alkaline Phosphatase Total Creatine Kinase Troponin I High Sens 142.8 H Total Protein Albumin Urine Color Urine Appearance Urine pH Ur Specific [place] Urine Protein Urine Glucose (UA) Urine Ketones Urine Blood Urine Nitrite Ur Leukocyte Esterase Urine RBC Urine WBC Ur Squamous Epith Cells Urine Bacteria Hyaline Casts Urine Mucus Urine Opiates Screen Ur Barbiturates Screen Ur Phencyclidine Scrn Ur Amphetamines Screen U Benzodiazepines Scrn Urine Cocaine Screen U Marijuana (THC) Screen Ethyl Alcohol Coronavirus (PCR) NEGATIVE Influenza Type A (PCR) NEGATIVE Influenza Type B (PCR) NEGATIVE RSV RNA Qual (PCR) NEGATIVE 01/19/21 01/19/21 01/19/21 15:12 15:12 15:12 MCV MCH MCHC RDW Plt Count MPV Immature Gran % (Auto) Neut % (Auto) Lymph % (Auto) [place] % (Auto) Eos % (Auto) Baso % (Auto) Lymph # (Auto) [place] # (Auto) Eos # (Auto) Baso # (Auto) Abs Immat Gran (auto) Absolute Neuts (auto) Absolute Nucleated RBC Nucleated RBC % (auto) PT INR APTT D-Dimer Anion Gap Estim Creat Clear Calc Estimated GFR Random Glucose Lactic Acid Calcium Total Bilirubin AST ALT Alkaline Phosphatase Total Creatine Kinase Troponin I High Sens Total Protein Albumin Urine Color YELLOW Urine Appearance CLEAR Urine pH 5.5 Ur Specific [place] >= 1.030 H Urine Protein 2+ H Urine Glucose (UA) NEG Urine Ketones >=80 Urine Blood TRACE Urine Nitrite NEG Ur Leukocyte Esterase NEG Urine RBC 0-2 Urine WBC 0-2 Ur Squamous Epith Cells TRACE Urine Bacteria NONE Hyaline Casts 0-2 Urine Mucus TRACE Urine Opiates Screen POSITIVE H Ur Barbiturates Screen Not Detected Ur Phencyclidine Scrn Not Detected Ur Amphetamines Screen Not Detected U Benzodiazepines Scrn Not Detected Urine Cocaine Screen POSITIVE H U Marijuana (THC) Screen POSITIVE H Ethyl Alcohol < 10 Coronavirus (PCR) Influenza Type A (PCR) Influenza Type B (PCR) RSV RNA Qual (PCR) 01/19/21 16:57 MCV MCH MCHC RDW Plt Count MPV Immature Gran % (Auto) Neut % (Auto) Lymph % (Auto) [place] % (Auto) Eos % (Auto) Baso % (Auto) Lymph # (Auto) [place] # (Auto) Eos # (Auto) Baso # (Auto) Abs Immat Gran (auto) Absolute Neuts (auto) Absolute Nucleated RBC Nucleated RBC % (auto) PT INR APTT D-Dimer Anion Gap Estim Creat Clear Calc Estimated GFR Random Glucose Lactic Acid Calcium Total Bilirubin AST ALT Alkaline Phosphatase Total Creatine Kinase Troponin I High Sens 136.0 H Total Protein Albumin Urine Color Urine Appearance Urine pH Ur Specific [place] Urine Protein Urine Glucose (UA) Urine Ketones Urine Blood Urine Nitrite Ur Leukocyte Esterase Urine RBC Urine WBC Ur Squamous Epith Cells Urine Bacteria Hyaline Casts Urine Mucus Urine Opiates Screen Ur Barbiturates Screen Ur Phencyclidine Scrn Ur Amphetamines Screen U Benzodiazepines Scrn Urine Cocaine Screen U Marijuana (THC) Screen Ethyl Alcohol Coronavirus (PCR) Influenza Type A (PCR) Influenza Type B (PCR) RSV RNA Qual (PCR) Imaging Radiologist's Impressions: Impressions Chest X-Ray 01/19/21 12:50 IMPRESSION: No acute disease within the chest. Chest CTA 01/19/21 14:51 IMPRESSION: No evidence of PE. No evidence of aortic VTE: negative Assessment and Plan (1) Acute viral syndrome: Status: Acute 35-year-old man admitted with multiple abnormalities but initially presenting with intractable nausea and vomiting, body aches. He was noted to be tachycardic with an elevation in his troponin which seem likely related to demand ischemia from cocaine use. Viral syndrome. No source of infection (CXR, UA, COVID neg). Did report body aches, runny nose over the last several days. LFTs within normal limits, respiratory panel negative. - IV fluids - supportive care - Follow LFTs - hold off on antibiotics Elevated troponin. Likely demand ischemia from cocaine use. LVH on EKG. - cardiology consultation - trend troponin - monitor on telemetry Tachycardia. May be drug related. Normal sinus rhythm. CT negative for VTE. LVH noted on EKG - echocardiogram Elevated blood pressure. No history of hypertension. Likely high from cocaine use. -Clonidine BID -Trend Intractable nausea and vomiting vs. marijuana related hyperemesis. History of this in the past, multiple emergency room visits. - Antiemetics - IV fluids Cocaine and heroin abuse. He denied cocaine use but reported using at least 1 bundle of heroin a day reported that he sniffs it and does not inject. - care team consult - morphine, Ativan, clonidine as needed for withdrawal symptoms. - discussed the importance of cessation of using these drugs. - check HIV Gastritis. Chronic. - IV Pepcid Smoker. -Offered NRT -Discussed the importance of cessation. DVT prophylaxis with Lovenox Attending: Dr. Brooks
[2021-01-19] MEDS: 0.9 % Sodium Chloride 1,000 ML 100 ML IVCONT (20:13)
[2021-01-19] MEDS: Enoxaparin Sodium 40 MG/0.4 ML SYRINGE SUBCUT (20:19)
[2021-01-20] VITALS (7 sets, daily range): BP systolic 131–175; BP diastolic 72–106; PULSE 81–117; RESP 16–28; TEMP 37.4; O2SAT 97–98
[2021-01-20] MEDS: 0.9 % Sodium Chloride 1,000 ML 100 ML IVCONT (04:17)
[2021-01-20] MEDS: LORazepam 2 MG/ML VIAL 1 MG IVPUSH ×2 (04:29→08:31)
[2021-01-20] MEDS: ondansetron HCL 4 MG/2 ML VIAL IVPUSH ×2 (04:29→21:35)
--- NOTE | 2021-01-20 04:31 | PC.NURSE ---
pt medicated for nausea and withdrawls. pt shaky sitting up in bed. pt medicated with zofran iv and ativan iv.
--- NOTE | 2021-01-20 06:05 | PC.NURSE ---
pt is no longer vomiting and is able to rest comfortably.
[2021-01-20 07:09] LABS: MANUAL DIFF FLAG NO
[2021-01-20] MEDS: Morphine Sulfate 2 MG/ML CARTRIDGE IVPUSH (07:10)
[2021-01-20 07:16] LABS: Basophils Absolute Auto 0.1 X10*3/uL (0.0-0.2); Basophils Percent Auto 0.3 % (0-2); Hematocrit 42.4 % (42-52); Hemoglobin 15.1 g/dl (14.0-18.0); Imm Gran Abs Auto 0.11 X10*3/uL (0.00-0.03); Imm Gran Pct Auto 0.6 % (0.0-0.4); Lymphocytes Absolute Auto 1.2 X10*3/uL (1.2-4.9); Lymphocytes Percent Auto 6.3 % (20-40); Mean Corpuscular HGB Conc 35.6 g/dl (31.0-36.0); Mean Corpuscular Hemoglobin 31.6 pg (27.0-33.0); Mean Corpuscular Volume 88.7 fL (80-98); Mean Platelet Volume 10.5 fL (9.4-12.4); Monocytes Absolute Auto 1.3 X10*3/uL (0.1-1.2); Monocytes Percent Auto 6.4 % (2-11); Neutrophils Percent Auto 86.4 % (45-73); Platelet Count 300 X10*3/uL (160-400); Red Blood Count 4.78 X10*6/uL (4.60-5.80); Red Cell Distribution Width 12.7 % (11.0-16.0); White Blood Count 19.7 X10*3/uL (4.8-10.8)
[2021-01-20 07:42] LABS: Anion Gap 19 (12-20); Blood Urea Nitrogen 11 mg/dL (9-16); Calcium 9.4 mg/dL (8.4-10.2); Carbon Dioxide 23 mmol/L (22-29); Chloride 110 mmol/L (96-108); Creatinine Clr Calc Pharmacy 83.5; Estimated Glomerular Filt Rate > 60; Glucose Random 105 mg/dL (60-115); Potassium 3.5 mmol/L (3.3-5.1); Sodium 148 mmol/L (135-145)
[2021-01-20] MEDS: cloNIDine HCL 0.1 MG TABLET PO ×2 (08:26→21:04)
[2021-01-20] MEDS: Famotidine/PF 20 MG/2 ML VIAL IVPUSH ×2 (08:26→21:06)
[2021-01-20] MEDS: Acetaminophen 325 MG TABLET 650 MG PO (08:31)
[2021-01-20] MEDS: PHENobarbitaL sodium 130 MG/ML VIAL 236 MG IM (11:17)
--- NOTE | 2021-01-20 12:07 | PM.CNCAR ---
History of Present Illness History of Present Illness Date of Service: 01/20/21 Chief complaint: Intractable nausea vomiting gastritis withdrawal Narrative: 35-year-old gentleman who has background of polysubstance abuse. He has been using heroin, cocaine and alcohol. His in withdrawal right now. He had some reproducible chest pain. Mildly abnormal troponin levels. He has fevers and is COVID negative. [facility] Past Medical History Medical History Asthma Gastritis Ulcer Social History Social History Alcohol intake: never Smoking Status: Unknown if ever smoked Use of substances other than those prescribed or required for medical reasons: Yes Substance Use Type: Heroin Substance Use Frequency: Daily Advance Directives: No Advance Directives Information Provided: No Meds Allergies Allergy/AdvReac Type Severity Reaction Status Date / Time Penicillins [PENICILLINS] Allergy Severe HIVES Verified 01/19/21 15:25 Active Medications: Current Medications Generic Name Dose Route Start Last Admin Trade Name Freq PRN Reason Stop Dose Admin Acetaminophen 650 mg 01/19/21 18:32 01/20/21 08:31 Acetaminophen 325 Mg Tablet PO 650 mg Q6H PRN Administration Pain, Mild (Pain Scale 1-3) Clonidine HCl 0.1 mg 01/20/21 09:00 01/20/21 08:26 Clonidine Hcl 0.1 Mg Tablet PO 0.1 mg BID TILA Administration Protocol Enoxaparin Sodium 40 mg 01/19/21 19:00 01/19/21 20:19 Enoxaparin Sodium 40 Mg/0.4 Ml Syringe SUBCUT 40 mg Q24H TILA Administration Famotidine 20 mg 01/19/21 21:00 01/20/21 08:26 Famotidine/Pf 20 Mg/2 Ml Vial IVPUSH 20 mg BID TILA Administration Medication 1 each 01/21/21 09:00 No Benzodiazepines MISCELLANE DAILY TILA Morphine Sulfate 2 mg 01/19/21 18:32 01/20/21 07:10 Morphine Sulfate 2 Mg/Ml Cartridge IVPUSH 2 mg Q4H PRN Administration anxiety/restlessness Nicotine Polacrilex 2 mg 01/19/21 18:59 Nicotine Polacrilex 2 Mg Gum BUCCAL Q2H PRN withdrawl Ondansetron HCl 4 mg 01/19/21 18:32 01/20/21 04:29 Ondansetron Hcl 4 Mg/2 Ml Vial IVPUSH 4 mg Q8H PRN Administration Nausea and Vomiting Phenobarbital 45 mg 01/20/21 21:00 Phenobarbital 15 Mg Tablet PO 01/22/21 09:01 BID [facility] Phenobarbital 15 mg 01/22/21 21:00 Phenobarbital 15 Mg Tablet PO 01/24/21 09:01 BID [facility] Phenobarbital 15 mg 01/25/21 09:00 Phenobarbital 15 Mg Tablet PO 01/26/21 09:01 DAILY [facility] Phenobarbital Sodium 177 mg 01/20/21 14:30 Phenobarbital Sodium 130 Mg/Ml Vial IM 01/20/21 17:31 Q3H [facility] Sodium Chloride 3 ml 01/20/21 00:00 01/20/21 07:20 0.9 % Sodium Chloride Flush 3 Ml Syringe IVFLUSH Not Given QSHIFT [facility] Physical Exam Vital Signs: Vital Signs: Last Vital Signs Temp 101.7 F H 01/19/21 16:54 Pulse 81 01/20/21 09:33 Resp 22 H 01/20/21 09:33 BP 134/72 01/20/21 09:33 Pulse Ox 98 01/20/21 06:04 Body Mass Index 22.6 GENERAL APPEARANCE: Tachycardic, tremulous. HEENT: unremarkable. HEAD: normocephalic, atraumatic. NECK/THYROID: no carotid bruit, no jugular venous distention. SKIN: no suspicious lesions, warm and dry. HEART: no murmurs, tachycardia, S1, S2 normal. LUNGS: clear to auscultation bilaterally. ABDOMEN: normal, bowel sounds present, soft, nontender, nondistended. EXTREMITIES: no clubbing, cyanosis, or edema. PERIPHERAL PULSES: equal. NEUROLOGIC: nonfocal, alert and oriented. Results Labs and Meds Result diagrams: 01/20/21 06:45 01/20/21 06:45 Lab results: Laboratory Results - last 24 hr 01/19/21 01/19/21 01/19/21 13:42 13:42 13:42 WBC 16.5 H RBC 5.72 Hgb 17.4 Hct 50.1 MCV 87.6 MCH 30.4 MCHC 34.7 RDW 12.4 Plt Count 345 MPV 9.8 Immature Gran % (Auto) 0.4 Neut % (Auto) 90.0 H Lymph % (Auto) 5.3 L [place] % (Auto) 4.1 Eos % (Auto) 0.0 Baso % (Auto) 0.2 Lymph # (Auto) 0.9 L [place] # (Auto) 0.7 Eos # (Auto) 0.0 Baso # (Auto) 0.0 Abs Immat Gran (auto) 0.07 H Absolute Neuts (auto) 14.8 H Absolute Nucleated RBC 0.000 Nucleated RBC % (auto) 0.0 PT 14.2 H INR 1.2 H APTT 35.0 D-Dimer 261 Sodium 143 Potassium 4.2 Chloride 101 Carbon Dioxide 29 Anion Gap 17 BUN 17 H Creatinine 1.29 Estim Creat Clear Calc 73.1 Estimated GFR > 60 Random Glucose 96 Lactic Acid Calcium 9.6 Total Bilirubin 1.1 H AST 15 ALT 13 Alkaline Phosphatase 73 Total Creatine Kinase 47 Troponin I High Sens Total Protein 7.8 Albumin 4.9 Urine Color Urine Appearance Urine pH Ur Specific [place] Urine Protein Urine Glucose (UA) Urine Ketones Urine Blood Urine Nitrite Ur Leukocyte Esterase Urine RBC Urine WBC Ur Squamous Epith Cells Urine Bacteria Hyaline Casts Urine Mucus Urine Opiates Screen Ur Barbiturates Screen Ur Phencyclidine Scrn Ur Amphetamines Screen U Benzodiazepines Scrn Urine Cocaine Screen U Marijuana (THC) Screen Ethyl Alcohol Coronavirus (PCR) Influenza Type A (PCR) Influenza Type B (PCR) RSV RNA Qual (PCR) 01/19/21 01/19/21 01/19/21 13:42 13:42 15:12 WBC RBC Hgb Hct MCV MCH MCHC RDW Plt Count MPV Immature Gran % (Auto) Neut % (Auto) Lymph % (Auto) [place] % (Auto) Eos % (Auto) Baso % (Auto) Lymph # (Auto) [place] # (Auto) Eos # (Auto) Baso # (Auto) Abs Immat Gran (auto) Absolute Neuts (auto) Absolute Nucleated RBC Nucleated RBC % (auto) PT INR APTT D-Dimer Sodium Potassium Chloride Carbon Dioxide Anion Gap BUN Creatinine Estim Creat Clear Calc Estimated GFR Random Glucose Lactic Acid 1.6 Calcium Total Bilirubin AST ALT Alkaline Phosphatase Total Creatine Kinase Troponin I High Sens 142.8 H Total Protein Albumin Urine Color Urine Appearance Urine pH Ur Specific [place] Urine Protein Urine Glucose (UA) Urine Ketones Urine Blood Urine Nitrite Ur Leukocyte Esterase Urine RBC Urine WBC Ur Squamous Epith Cells Urine Bacteria Hyaline Casts Urine Mucus Urine Opiates Screen Ur Barbiturates Screen Ur Phencyclidine Scrn Ur Amphetamines Screen U Benzodiazepines Scrn Urine Cocaine Screen U Marijuana (THC) Screen Ethyl Alcohol Coronavirus (PCR) NEGATIVE Influenza Type A (PCR) NEGATIVE Influenza Type B (PCR) NEGATIVE RSV RNA Qual (PCR) NEGATIVE 01/19/21 01/19/21 01/19/21 15:12 15:12 15:12 WBC RBC Hgb Hct MCV MCH MCHC RDW Plt Count MPV Immature Gran % (Auto) Neut % (Auto) Lymph % (Auto) [place] % (Auto) Eos % (Auto) Baso % (Auto) Lymph # (Auto) [place] # (Auto) Eos # (Auto) Baso # (Auto) Abs Immat Gran (auto) Absolute Neuts (auto) Absolute Nucleated RBC Nucleated RBC % (auto) PT INR APTT D-Dimer Sodium Potassium Chloride Carbon Dioxide Anion Gap BUN Creatinine Estim Creat Clear Calc Estimated GFR Random Glucose Lactic Acid Calcium Total Bilirubin AST ALT Alkaline Phosphatase Total Creatine Kinase Troponin I High Sens Total Protein Albumin Urine Color YELLOW Urine Appearance CLEAR Urine pH 5.5 Ur Specific [place] >= 1.030 H Urine Protein 2+ H Urine Glucose (UA) NEG Urine Ketones >=80 Urine Blood TRACE Urine Nitrite NEG Ur Leukocyte Esterase NEG Urine RBC 0-2 Urine WBC 0-2 Ur Squamous Epith Cells TRACE Urine Bacteria NONE Hyaline Casts 0-2 Urine Mucus TRACE Urine Opiates Screen POSITIVE H Ur Barbiturates Screen Not Detected Ur Phencyclidine Scrn Not Detected Ur Amphetamines Screen Not Detected U Benzodiazepines Scrn Not Detected Urine Cocaine Screen POSITIVE H U Marijuana (THC) Screen POSITIVE H Ethyl Alcohol < 10 Coronavirus (PCR) Influenza Type A (PCR) Influenza Type B (PCR) RSV RNA Qual (PCR) 01/19/21 01/20/21 01/20/21 16:57 06:45 06:45 WBC 19.7 H RBC 4.78 Hgb 15.1 Hct 42.4 MCV 88.7 MCH 31.6 MCHC 35.6 RDW 12.7 Plt Count 300 MPV 10.5 Immature Gran % (Auto) 0.6 H Neut % (Auto) 86.4 H Lymph % (Auto) 6.3 L [place] % (Auto) 6.4 Eos % (Auto) 0.0 Baso % (Auto) 0.3 Lymph # (Auto) 1.2 [place] # (Auto) 1.3 H Eos # (Auto) 0.0 Baso # (Auto) 0.1 Abs Immat Gran (auto) 0.11 H Absolute Neuts (auto) 17.0 H Absolute Nucleated RBC 0.000 Nucleated RBC % (auto) 0.0 PT INR APTT D-Dimer Sodium 148 H Potassium 3.5 Chloride 110 H Carbon Dioxide 23 Anion Gap 19 BUN 11 Creatinine 1.13 Estim Creat Clear Calc 83.5 Estimated GFR > 60 Random Glucose 105 Lactic Acid Calcium 9.4 Total Bilirubin AST ALT Alkaline Phosphatase Total Creatine Kinase Troponin I High Sens 136.0 H Total Protein Albumin Urine Color Urine Appearance Urine pH Ur Specific [place] Urine Protein Urine Glucose (UA) Urine Ketones Urine Blood Urine Nitrite Ur Leukocyte Esterase Urine RBC Urine WBC Ur Squamous Epith Cells Urine Bacteria Hyaline Casts Urine Mucus Urine Opiates Screen Ur Barbiturates Screen Ur Phencyclidine Scrn Ur Amphetamines Screen U Benzodiazepines Scrn Urine Cocaine Screen U Marijuana (THC) Screen Ethyl Alcohol Coronavirus (PCR) Influenza Type A (PCR) Influenza Type B (PCR) RSV RNA Qual (PCR) Imaging Radiologist's impression: Impressions Chest X-Ray 01/19/21 12:50 IMPRESSION: No acute disease within the chest. Chest CTA 01/19/21 14:51 IMPRESSION: No evidence of PE. No evidence of aortic VTE: negative Assessment and Plan (1) Elevated troponin: Status: Acute (2) Polysubstance abuse: Status: Acute 35-year-old gentleman with polysubstance abuse and mildly abnormal troponin. He is using cocaine, opiates and alcohol. He said he used cocaine yesterday. Mildly abnormal troponin level is probably due to cocaine use. He is in withdrawal right now. He drinks vodka. CIWA scale. No specific cardiovascular intervention require right now. Signing off. Thank you for allowing me to participate in the care of your patient. Please feel free to contact me if you have any questions.
--- NOTE | 2021-01-20 12:52 | MHC.CM.PN ---
Attempted to meet with patient in regards to discharge planning. Patient currently sleepiing. No family present. Will attempt to meet again. Continue to monitor for d/c needs.
--- NOTE | 2021-01-20 13:52 | P.PNIM_ITS ---
Subjective Subjective Date of Service: 01/20/21 Interval History: Patient complaining of shakiness , tremors complaining of less nausea, and vomiting complaining of generalized, has been requiring anti emetics and anxiolytics, admitted that he drinks 1 pt of vodka daily tele monitor continued to show tachycardia and high blood pressure. General shakiness tremors, no headache CVS no chest pain, no palpitation. Respiratory no cough no sob Gastrointestinal no nausea, epigastric pain Physical Exam Vital Signs: Vital Signs: Last Vital Signs Temp 101.7 F H 01/19/21 16:54 Pulse 81 01/20/21 09:33 Resp 22 H 01/20/21 09:33 BP 134/72 01/20/21 09:33 Pulse Ox 98 01/20/21 06:04 Body Mass Index 22.6 General restless, shaky, tremulous Neck is supple no JVD. CVS regular rate rhythm, Respiratory lungs clear to auscultation, no respiratory distress, no wheeze, no rhonchi. Gastrointestinal abdomen soft, mild epigastric tenderness, no guarding , no rigidity. Extremities no edema. Neuro nonfocal , moving all 4 extremities good strength and tone speech, tremors Skin no rash Objective Data Current Medications Generic Name Dose Route Start Last Admin Trade Name Freq PRN Reason Stop Dose Admin Acetaminophen 650 mg 01/19/21 18:32 01/20/21 08:31 Acetaminophen 325 Mg Tablet PO 650 mg Q6H PRN Administration Pain, Mild (Pain Scale 1-3) Clonidine HCl 0.1 mg 01/20/21 09:00 01/20/21 08:26 Clonidine Hcl 0.1 Mg Tablet PO 0.1 mg BID TILA Administration Protocol Enoxaparin Sodium 40 mg 01/19/21 19:00 01/19/21 20:19 Enoxaparin Sodium 40 Mg/0.4 Ml Syringe SUBCUT 40 mg Q24H TILA Administration Famotidine 20 mg 01/19/21 21:00 01/20/21 08:26 Famotidine/Pf 20 Mg/2 Ml Vial IVPUSH 20 mg BID TILA Administration Medication 1 each 01/21/21 09:00 No Benzodiazepines MISCELLANE DAILY [facility] Morphine Sulfate 2 mg 01/19/21 18:32 01/20/21 07:10 Morphine Sulfate 2 Mg/Ml Cartridge IVPUSH 2 mg Q4H PRN Administration anxiety/restlessness Nicotine Polacrilex 2 mg 01/19/21 18:59 Nicotine Polacrilex 2 Mg Gum BUCCAL Q2H PRN withdrawl Ondansetron HCl 4 mg 01/19/21 18:32 01/20/21 04:29 Ondansetron Hcl 4 Mg/2 Ml Vial IVPUSH 4 mg Q8H PRN Administration Nausea and Vomiting Phenobarbital 45 mg 01/20/21 21:00 Phenobarbital 15 Mg Tablet PO 01/22/21 09:01 BID TILA Phenobarbital 15 mg 01/22/21 21:00 Phenobarbital 15 Mg Tablet PO 01/24/21 09:01 BID [facility] Phenobarbital 15 mg 01/25/21 09:00 Phenobarbital 15 Mg Tablet PO 01/26/21 09:01 DAILY [facility] Phenobarbital Sodium 177 mg 01/20/21 14:30 Phenobarbital Sodium 130 Mg/Ml Vial IM 01/20/21 17:31 Q3H [facility] Sodium Chloride 3 ml 01/20/21 00:00 01/20/21 07:20 0.9 % Sodium Chloride Flush 3 Ml Syringe IVFLUSH Not Given QSHIFT [facility] Labs CBC & Chem 7: 01/20/21 06:45 01/20/21 06:45 Assessment and Plan (1) Opiate withdrawal: Status: Acute (2) Acute viral syndrome: Status: Acute (3) Elevated troponin: Status: Acute (4) Intractable nausea and vomiting: Status: Acute (5) Polysubstance abuse: Status: Acute (6) Alcohol abuse with withdrawal: Status: Acute Assessment and Plan: 35-year-old man admitted with multiple abnormalities but initially presenting w ith intractable nausea and vomiting, body aches. He was noted to be tachycardic with an elevation in his troponin which seem likely related to demand ischemia from cocaine use. Alcohol abuse and withdrawal patient noted to be significantly restless shaky tremulous therefore started phenobarb protocol will discontinue IV ativan, will add thiamine folic acid, care team eval prior to discharge. Viral syndrome. No source of infection (CXR, UA, COVID neg). Did report body aches, runny nose over the last several days. LFTs within normal limits, respiratory panel negative. Fevers overnight, continue supportive care, hold antibiotic, resume diet and DC IV fluid,hiv pend. Leukocytosis likely reactive follow CBC Elevated troponin/sinus tachycardia/elevated blood pressure. Likely from cocai ne use. CTA chest negative for VTE, no history of hypertension, Case discussed with Cardiology Dr. Blank he recommend no further testing and feels symptoms related to cocaine use, alcohol withdrawal, Strongly recommend to abstain from cocaine will obtain care team consult , check echo. Intractable nausea and vomiting likely due to gastritis and some component of marijuana related hyperemesis. Continue anti emetics, ppi since nausea is improving will start diet. Cocaine ,heroin abuse and marijuana use continue morphine, Ativan, and clonidine as needed for withdrawal symptoms. Gastritis. Chronic. Continue IV Pepcid. Smoker. Smoking cessation advise, continue Nicorette gums. DVT prophylaxis with Lovenox
[2021-01-20] MEDS: PHENobarbitaL sodium 130 MG/ML VIAL 177 MG IM ×2 (14:38→17:26)
[2021-01-20] MEDS: PHENobarbitaL 15 MG TABLET 45 MG PO (21:04)
[2021-01-20] MEDS: Enoxaparin Sodium 40 MG/0.4 ML SYRINGE SUBCUT (21:06)
[2021-01-21] VITALS (12 sets, daily range): BP systolic 141–161; BP diastolic 94–98; PULSE 70–88; RESP 14–18; TEMP 37.4–38.3; O2SAT 95–98
[2021-01-21] MEDS: 0.9 % Sodium Chloride Flush 3 ML SYRINGE IVFLUSH ×4 (00:39→20:43)
[2021-01-21] MEDS: Morphine Sulfate 2 MG/ML CARTRIDGE IVPUSH ×2 (02:50→15:03)
[2021-01-21 03:41] LABS: HIV AB/AG Nonreactive (Nonreactive); HIV Num 1 0.06 S/CO (0.00-0.99)
[2021-01-21] MEDS: Acetaminophen 325 MG TABLET 650 MG PO (05:18)
[2021-01-21] MEDS: ondansetron HCL 4 MG/2 ML VIAL IVPUSH ×2 (05:18→15:03)
[2021-01-21 06:50] LABS: Basophils Absolute Auto 0.1 X10*3/uL (0.0-0.2); Basophils Percent Auto 0.5 % (0-2); Hematocrit 43.9 % (42-52); Imm Gran Abs Auto 0.06 X10*3/uL (0.00-0.03); Imm Gran Pct Auto 0.4 % (0.0-0.4); Lymphocytes Absolute Auto 2.3 X10*3/uL (1.2-4.9); Lymphocytes Percent Auto 14.5 % (20-40); MANUAL DIFF FLAG SCAN; Mean Corpuscular HGB Conc 34.2 g/dl (31.0-36.0); Mean Corpuscular Hemoglobin 30.2 pg (27.0-33.0); Mean Corpuscular Volume 88.5 fL (80-98); Mean Platelet Volume 10.6 fL (9.4-12.4); Monocytes Absolute Auto 1.6 X10*3/uL (0.1-1.2); Monocytes Percent Auto 10.1 % (2-11); Neutrophils Absolute Auto 11.6 X10*3/uL (2.0-8.3); Neutrophils Percent Auto 74.5 % (45-73); Platelet Count 265 X10*3/uL (160-400); Red Blood Count 4.96 X10*6/uL (4.60-5.80); Red Cell Distribution Width 12.6 % (11.0-16.0); SCAN SMEAR FLAG 1; White Blood Count 15.6 X10*3/uL (4.8-10.8)
[2021-01-21 07:20] LABS: Anion Gap 16 (12-20); Blood Urea Nitrogen 11 mg/dL (9-16); Calcium 9.5 mg/dL (8.4-10.2); Carbon Dioxide 27 mmol/L (22-29); Chloride 102 mmol/L (96-108); Creatinine Clr Calc Pharmacy 103.7; Estimated Glomerular Filt Rate > 60; Glucose Random 95 mg/dL (60-115); Potassium 3.3 mmol/L (3.3-5.1); Sodium 142 mmol/L (135-145)
[2021-01-21 07:31] LABS: SLIDE REVIEW VERIFIED
[2021-01-21] MEDS: Folic Acid 1 MG TABLET PO (08:13)
[2021-01-21] MEDS: cloNIDine HCL 0.1 MG TABLET PO ×2 (08:13→20:42)
[2021-01-21] MEDS: Famotidine/PF 20 MG/2 ML VIAL IVPUSH (08:13)
[2021-01-21] MEDS: PHENobarbitaL 15 MG TABLET 45 MG PO ×2 (08:13→20:42)
[2021-01-21] MEDS: Thiamine HCL 100 MG TABLET PO (08:13)
--- NOTE | 2021-01-21 09:57 | HO.PM.IMPN ---
Subjective Subjective Date of Service: 01/25/21 Interval History: Patient had fever up to 101 overnight, continued to have withdrawal symptoms of tremors shakiness dry heaving, now somnolent since received morphine and phenobarb. Unable to obtain review of systems since patient is somnolent. Physical Exam Vital Signs: Vital Signs: Last Vital Signs Temp 100.1 F 01/21/21 08:00 Pulse 88 01/21/21 08:13 Resp 16 01/21/21 08:00 BP 152/96 H 01/21/21 08:13 Pulse Ox 96 01/21/21 08:00 Body Mass Index 22.6 General somnolent but arousable Neck no JVD. CVS regular rate rhythm, Respiratory no respiratory distress, no wheeze, no rhonchi. Gastrointestinal abdomen soft, nontender, bowel sounds audible Extremities no edema. Neuro nonfocal, moving all 4 extremity speech clear. Skin no rash Objective Data Current Medications Generic Name Dose Route Start Last Admin Trade Name Freq PRN Reason Stop Dose Admin Acetaminophen 650 mg 01/19/21 18:32 01/21/21 05:18 Acetaminophen 325 Mg Tablet PO 650 mg Q6H PRN Administration Pain, Mild (Pain Scale 1-3) Clonidine HCl 0.1 mg 01/20/21 09:00 01/21/21 08:13 Clonidine Hcl 0.1 Mg Tablet PO 0.1 mg BID TILA Administration Protocol Enoxaparin Sodium 40 mg 01/19/21 19:00 01/20/21 21:06 Enoxaparin Sodium 40 Mg/0.4 Ml Syringe SUBCUT 40 mg Q24H TILA Administration Famotidine 20 mg 01/19/21 21:00 01/21/21 08:13 Famotidine/Pf 20 Mg/2 Ml Vial IVPUSH 20 mg BID TILA Administration Folic Acid 1 mg 01/21/21 09:00 01/21/21 08:13 Folic Acid 1 Mg Tablet PO 1 mg DAILY TILA Administration Medication 1 each 01/21/21 09:00 No Benzodiazepines MISCELLANE DAILY [facility] Morphine Sulfate 2 mg 01/19/21 18:32 01/21/21 02:50 Morphine Sulfate 2 Mg/Ml Cartridge IVPUSH 2 mg Q4H PRN Administration anxiety/restlessness Nicotine Polacrilex 2 mg 01/19/21 18:59 Nicotine Polacrilex 2 Mg Gum BUCCAL Q2H PRN withdrawl Ondansetron HCl 4 mg 01/19/21 18:32 01/21/21 05:18 Ondansetron Hcl 4 Mg/2 Ml Vial IVPUSH 4 mg Q8H PRN Administration Nausea and Vomiting Phenobarbital 45 mg 01/20/21 21:00 01/21/21 08:13 Phenobarbital 15 Mg Tablet PO 01/22/21 09:01 45 mg BID TILA Administration Phenobarbital 15 mg 01/22/21 21:00 Phenobarbital 15 Mg Tablet PO 01/24/21 09:01 BID TILA Phenobarbital 15 mg 01/25/21 09:00 Phenobarbital 15 Mg Tablet PO 01/26/21 09:01 DAILY TILA Sodium Chloride 3 ml 01/20/21 00:00 01/21/21 08:13 0.9 % Sodium Chloride Flush 3 Ml Syringe IVFLUSH 3 ml QSHIFT TILA Administration Thiamine HCl 100 mg 01/21/21 09:00 01/21/21 08:13 Thiamine Hcl 100 Mg Tablet PO 100 mg DAILY TILA Administration Labs CBC & Chem 7: 01/24/21 05:21 01/24/21 05:21 Microbiology Microbiology Results: Microbiology 01/19/21 15:20 Blood - Venous Blood Culture - Preliminary No growth after 24 hours. 01/19/21 15:12 Blood - Venous Blood Culture - Preliminary No growth after 24 hours. Assessment and Plan (1) Alcohol abuse with withdrawal: Status: Acute (2) Opiate withdrawal: Status: Acute (3) Acute viral syndrome: Status: Acute (4) Elevated troponin: Status: Acute (5) Intractable nausea and vomiting: Status: Acute (6) Polysubstance abuse: Status: Acute (7) Hypertension: Status: Acute (8) Sinus tachycardia: Status: Acute Assessment and Plan: 35-year-old man admitted with multiple abnormalities, initially presenting with intractable nausea and vomiting, body aches. He was noted to be tachycardic with an elevation in his troponin which seem likely related to demand ischemia from cocaine use. Alcohol abuse and withdrawal persistent shakiness and tremors continue phenobarb protocol , thiamine and folic acid, care team eval prior to discharge. Viral syndrome. No source of infection (CXR, UA, COVID neg),with body aches, runny nose over the last several days. LFTs within normal limits, respiratory panel negative. Fevers overnight, continue supportive care, hold antibiotic, hiv nonreactive, id consult Leukocytosis likely reactive /due to viral infection trending down,follow cbc. Elevated troponin/sinus tachycardia/elevated blood pressure. Likely from cocaine use. CTA chest negative for VTE, no history of hypertension, Case discussed with Cardiology Dr. Blank he recommend no further testing and feels symptoms related to cocaine use, alcohol withdrawal, Strongly recommend to abstain from cocaine will obtain care team consult , check echo. Intractable nausea and vomiting likely due to withdrawal/ gastritis, Continue anti. emetics, Pepcid, tolerating diet. Cocaine ,heroin abuse and marijuana use continue morphine, and clonidine for withdrawal symptoms. Gastritis. Chronic, Continue Pepcid. Smoker. Smoking cessation advise, continue Nicorette gums. DVT prophylaxis with Lovenox
--- NOTE | 2021-01-21 10:28 | MHC.CM.PN ---
met with pt who will be referred to care team for his polysubstance abuse ..hcp completed and placed on chart
--- NOTE | 2021-01-21 16:09 | P.CNID_ITS ---
History of Present Illness Data of Consult Service Date: 01/21/21 Requesting physician: Fawad Brooks Primary Care Provider: [facility] Reason for consult: fever of unknown origin He presents with 3 days fever and chills He has said is ill too He has some epigastric discomfort He has been snorting cocaine HIV is negative and blood cultures negative so far Review of Systems Review of Systems: Yes all other systems are reviewed and are negative [facility] Past Medical History Medical History (Updated 01/21/21 @ 16:13 by Adelaida Mallory MD) Asthma Fever of unknown origin Gastritis Ulcer Family History Family history: reviewed and not pertinent Social History Social History Household Members: Spouse Housing: House Alcohol intake: never Smoking Status: Heavy tobacco smoker Tobacco Type: Cigarette Packs Per Day: 1 Cigarettes Per Day: 20.0 Substance Use Type: Heroin service: No Meds Allergies Allergy/AdvReac Type Severity Reaction Status Date / Time Penicillins [PENICILLINS] Allergy Severe HIVES Verified 01/19/21 15:25 Active Medications: Current Medications Generic Name Dose Route Start Last Admin Trade Name Freq PRN Reason Stop Dose Admin Acetaminophen 650 mg 01/19/21 18:32 01/21/21 05:18 Acetaminophen 325 Mg Tablet PO 650 mg Q6H PRN Administration Pain, Mild (Pain Scale 1-3) Clonidine HCl 0.1 mg 01/20/21 09:00 01/21/21 08:13 Clonidine Hcl 0.1 Mg Tablet PO 0.1 mg BID TILA Administration Protocol Enoxaparin Sodium 40 mg 01/19/21 19:00 01/20/21 21:06 Enoxaparin Sodium 40 Mg/0.4 Ml Syringe SUBCUT 40 mg Q24H TILA Administration Famotidine 20 mg 01/21/21 21:00 Famotidine 20 Mg Tablet PO BID TILA Folic Acid 1 mg 01/21/21 09:00 01/21/21 08:13 Folic Acid 1 Mg Tablet PO 1 mg DAILY TILA Administration Medication 1 each 01/21/21 09:00 No Benzodiazepines MISCELLANE DAILY [facility] Morphine Sulfate 2 mg 01/19/21 18:32 01/21/21 15:03 Morphine Sulfate 2 Mg/Ml Cartridge IVPUSH 2 mg Q4H PRN Administration anxiety/restlessness Nicotine Polacrilex 2 mg 01/19/21 18:59 Nicotine Polacrilex 2 Mg Gum BUCCAL Q2H PRN withdrawl Ondansetron HCl 4 mg 01/19/21 18:32 01/21/21 15:03 Ondansetron Hcl 4 Mg/2 Ml Vial IVPUSH 4 mg Q8H PRN Administration Nausea and Vomiting Phenobarbital 45 mg 01/20/21 21:00 01/21/21 08:13 Phenobarbital 15 Mg Tablet PO 01/22/21 09:01 45 mg BID TILA Administration Phenobarbital 15 mg 01/22/21 21:00 Phenobarbital 15 Mg Tablet PO 01/24/21 09:01 BID TILA Phenobarbital 15 mg 01/25/21 09:00 Phenobarbital 15 Mg Tablet PO 01/26/21 09:01 DAILY TILA Sodium Chloride 3 ml 01/20/21 00:00 01/21/21 15:03 0.9 % Sodium Chloride Flush 3 Ml Syringe IVFLUSH 3 ml QSHIFT TILA Administration Thiamine HCl 100 mg 01/21/21 09:00 01/21/21 08:13 Thiamine Hcl 100 Mg Tablet PO 100 mg DAILY TILA Administration Physical Exam Vital Signs: Vital Signs: Last Vital Signs Temp 99.4 F 01/21/21 15:02 Pulse 82 01/21/21 15:02 Resp 18 01/21/21 15:03 BP 141/98 H 01/21/21 15:02 Pulse Ox 96 01/21/21 15:02 Body Mass Index 22.6 Const: General: cooperative Orientation/consciousness: patient oriented x3 HENMT: Head: Yes normal to inspection Mouth: Normal oral and palatal mucosa present Eyes: General: appearance normal, both eyes and all related structures Resp: Effort & Inspection: normal respiratory effort Cardio: Rate: regular rate Rhythm: regular rhythm GI: Palpation (GI): Soft to palpation and Tenderness to palpation present (GI) (ruq) : General: Yes no CVA tenderness Back/Spine/Pelvis: Back: no CVA tenderness Thoracic/Lumbar Spine: thoracic and lumbar spine normal to inspection Skin: General skin exam: no rashes or lesions noted Neuro: General: patient oriented x3 Extrem: General: Yes normal to inspection Results Labs CBC & Chem 7: 01/21/21 05:44 01/21/21 05:44 Labs: Short CBC 01/21/21 Range/Units 05:44 WBC 15.6 H (4.8-10.8) X10*3/uL Hgb 15.0 (14.0-18.0) g/dl Hct 43.9 (42-52) % Plt Count 265 (160-400) X10*3/uL BMP 01/21/21 05:44 Sodium 142 Potassium 3.3 Chloride 102 Carbon Dioxide 27 BUN 11 Creatinine 0.91 Calcium 9.5 Microbiology Microbiology Results: Microbiology 01/19/21 15:20 Blood - Venous Blood Culture - Preliminary No growth after 24 hours. 01/19/21 15:12 Blood - Venous Blood Culture - Preliminary No growth after 24 hours. Assessment and Plan (1) Polysubstance abuse: Status: Acute (2) Fever of unknown origin: Problem details: There doesnt seem to be specific infectious source seen although abdominal discomfort maybe related to infarction from cocaine use mesentery He also may have cotton fever from cocaine use Status: Acute Would hold antibiotics at this time Await cultures Check abdomen and pelvic CT (3) Alcohol abuse with withdrawal: Status: Acute
[2021-01-21] MEDS: Prochlorperazine Edisylate 10 MG/2 ML VIAL IV (18:36)
[2021-01-21] MEDS: Enoxaparin Sodium 40 MG/0.4 ML SYRINGE SUBCUT (18:36)
[2021-01-21] MEDS: Famotidine 20 MG TABLET PO (20:42)
[2021-01-22] VITALS (15 sets, daily range): BP systolic 130–152; BP diastolic 76–97; PULSE 68–108; RESP 16–20; TEMP 36–37.1; O2SAT 95–99
[2021-01-22] MEDS: Morphine Sulfate 2 MG/ML CARTRIDGE IVPUSH ×4 (03:37→18:41)
[2021-01-22] MEDS: Prochlorperazine Edisylate 10 MG/2 ML VIAL IV ×2 (03:45→20:16)
[2021-01-22] MEDS: 0.9 % Sodium Chloride Flush 3 ML SYRINGE IVFLUSH ×2 (07:50→16:56)
[2021-01-22] MEDS: Famotidine 20 MG TABLET PO ×2 (07:51→20:16)
[2021-01-22] MEDS: PHENobarbitaL 15 MG TABLET 45 MG PO (07:51)
[2021-01-22] MEDS: Folic Acid 1 MG TABLET PO (07:51)
[2021-01-22] MEDS: cloNIDine HCL 0.1 MG TABLET PO ×3 (07:51→20:16)
[2021-01-22] MEDS: Thiamine HCL 100 MG TABLET PO (07:51)
--- NOTE | 2021-01-22 08:52 | CA_ITS ---
Transthoracic Echocardiogram Patient (Last, First, Middle): Colin Marquez, Gender: Male Date of : 1985 Age: 35 Procedure Date: 01/22/2021 Procedure Type: Transthoracic [place] [facility] [place]: 167.64 cm Weight: 63.5 kg BSA: 1.72 m2 Heart Rate: bpm BP: 159 / 98 mmHg Medical Editor: YADIRA Referring MD: Sinai Velez NP Raiser Helper: Abdi Broussard MD Symptoms: LVH, tachycardia, HTN Study Quality: Good ECG Rhythm: Sinus Conclusions: - Essentially normal study Findings Left Ventricle Normal left ventricular size, thickness, and systolic function. The visually estimated ejection fraction is between 55-60%. Diastolic function is normal for age. Right Ventricle Normal right ventricular cavity size and systolic function. Atria Both atria are normal in size. There is no evidence of interatrial shunt. Aortic Valve Normal aortic valve structure and function. There is no aortic valve stenosis. There is no aortic valve regurgitation. Mitral Valve Normal mitral valve structure and function. There is trace mitral valve regurgitation. There is no mitral valve stenosis. Pulmonic Valve The pulmonic valve is likely normal. There is trace pulmonic valve regurgitation. Tricuspid Valve Normal tricuspid valve structure. There is trace tricuspid valve regurgitation. The right ventricular systolic pressure is normal. The right ventricular systolic pressure is 16 mmHg. Normal right atrial pressure. There is no evidence of pulmonary hypertension. Great Vessels All visible segments of the aorta are normal in size. The pulmonary artery was not well visualized. Venous The inferior vena cava is normal in size and collapses greater than 50% with inspiration. Pericardium/Pleural There is no evidence of pericardial effusion. Prior Study Comparison No prior study available for comparison. Measurements 2D Linear Measurements IVSd: 0.80 0.6-0.9/0.6-1.0 cm LVIDd: 4.88 3.9-5.3/4.2-5.9 cm LVIDd Index: 2.84 2.4-3.2/2.2-3.1 cm/m2 LVIDs: 3.46 2.0-3.6 cm LVPWd: 0.80 0.7-1.1 cm Ao Root: 2.90 2.1-3.5 cm LA Diam: 3.30 2.7-3.8/3.0-4.0 cm LAIDs Index: 1.92 1.5-2.3 cm/m2 LV Mass: 161.07 67-162/88-224 g LV Mass Index: 93.65 43-95/49-115 g/m2 LVOT Diam: 2.20 3.0+(-)1.3 cm Mitral Valve MV Pk E: 0.70 MV PK A: 0.55 MV Decel Time: 137.00 E/A: 1.30 E'Lateral: 10.70 E'Medial: 9.38 E/E' Med: 7.50 E/E' Lat: 6.60 PHT: 40.00 MVA PHT: 5.50 Decel [place]ham: 5.12 Aortic Valve AoV Pk Nickolas: 1.19 AoV Mn Nickolas: 0.73 AoV VTI: 0.26 AoV Pk Grad: 6.00 Aov Mn Grad: 3.00 ESSENCE Cont.VTI: 2.07 LVOT LVOT Pk Nickolas: 0.73 LVOT Mn Nickolas: 0.44 LVOT VTI: 0.14 LVOT Pk Grad: 2.00 LVOT Mn Grad: 1.00 LVOT Diam: 2.20 LVOT Area: 3.80 Diastolic Function MV Pk E: 0.70 MV Pk A: 0.55 E/A: 1.30 E'Medial: 9.38 E/E' Med: 7.50 E' Laterial: 10.70 E/E' Lat: 6.60 Tricuspid Valve TR Pk Nickolas: 1.79 TR Pk Grad: 13.00 RA Press: 3.00 RVSP: 16.00 Great Vessels Aorta Ao Root-2D: 2.90 2.0-3.7 cm Ao Asc: 3.20 2.1-3.4 cm Pulmonary Valve PV Pk Nickolas: 0.79 Peak PV Grad: 2.00 Updated in Other Vendor System with Status of Final Abdi Broussard MD electronically signed on 01/22/2021 3:06:07 PM with status of Final
--- NOTE | 2021-01-22 09:45 | PC.NURSE ---
Pt up to bathroom and tachycardic to 170s. Dr. Ch made aware.
--- NOTE | 2021-01-22 10:10 | MHC.RECOVRN ---
35 year old male presented to [facility] ED on 01/19/21 via ambulance due to? c/o n/v, body aches, night sweats x 2 days. ?Pt also uses heroin inhaled, last used yesterday at 3pm per value advisor. Pt subsequently admitted due to acute viral syndrome. T/w met with pt in 453 to discuss substance use. Pt reports substance use began 3-4 years ago. Pt currently uses heroin, [place], 2 bundles daily; vodka, 1 gallon daily; cocaine, [place], 1 gram occasionally. Pt reports having gone to [email or web address] in 2019 and was started on naltrexone at [facility] thereafter. Pt reports it made me sick for 3 days. Pt self discontinued.?? Pt plans to live with sister in [place], [place] after d/c from [facility]. T/w discussed pathways to recovery as well as MOUD and medication for AUD with pt. Pt not interested in setting up recovery services locally or MOUD/medication for AUD, pt states It's another addiction. ? T/w discussed withdrawal symptoms with pt, pt denies current symptoms. Pt is on phenobarbital protocol and receiving?morphine 2 mg q 4 hours prn. Pt states I'm okay right now because I just got the morphine. T/w encouraged pt to notify RNTam, if opiate withdrawal symptoms occur prior to next available morphine dose.? Case was discussed with Aranza Malave APRN, as well as pts Tam DAVILA.?
--- NOTE | 2021-01-22 13:40 | P.CNGI_ITS ---
History of Present Illness Data of Consult Service Date: 01/22/21 Requesting physician: Isadora Ch Primary Care Provider: [facility] HPI Reason for consult: Nausea, vomiting and abdominal pain,in setting of heroin abuse, etc. 35 yo male who came in through the ER. He is not known to me. His history is a little vague. He says he snorts the heroin. He does have a hx of polysubstance use. The urine screen is + for cocaine and marijuana. (He says he used to use a lot more MJ. He tells me that a while ago he was told he had an ulcer-- he was in [place] @ that time. At the time of my visit he was not vomiting. He also felt the pain had left. Family was @ the bedside. Review of Systems Review of Systems: Yes all other systems are reviewed and are negative Cardiovascular: Cardiovascular: Reports chest pain (? related to his cocaine use w/tachycardia, etc.) Respiratory: Respiratory: Reports as per HPI Comments: Has a hx of asthma. Gastrointestinal: Gastrointestinal: Reports as per HPI [facility] Past Medical History Medical History (Updated 01/25/21 @ 12:51 by Shanta Abraham MD) Abdominal pain Asthma Colitis Fever of unknown origin Gastritis Ulcer Family History Family history: reviewed and not pertinent Social History Social History (Updated 01/22/21 @ 19:35 by Shanta Abraham MD) Household Members: Spouse Housing: House Alcohol intake: never Smoking Status: Heavy tobacco smoker Tobacco Type: Cigarette Packs Per Day: 1 Cigarettes Per Day: 20.0 Use of substances other than those prescribed or required for medical reasons: Yes Substance Use Type: Crack/Cocaine, Heroin and Marijuana Substance Use Frequency: Chronic Longstanding Last Used Substance: Just Prior to Admission Currently Displaying Signs/Symptoms of Drug Intoxication Withdrawal: No service: No Meds Allergies Allergy/AdvReac Type Severity Reaction Status Date / Time Penicillins [PENICILLINS] Allergy Severe HIVES Verified 01/19/21 15:25 Active Medications: Current Medications Generic Name Dose Route Start Last Admin Trade Name Freq PRN Reason Stop Dose Admin Acetaminophen 650 mg 01/19/21 18:32 01/21/21 05:18 Acetaminophen 325 Mg Tablet PO 650 mg Q6H PRN Administration Pain, Mild (Pain Scale 1-3) Clonidine HCl 0.1 mg 01/22/21 15:00 Clonidine Hcl 0.1 Mg Tablet PO TID [facility] Protocol Enoxaparin Sodium 40 mg 01/19/21 19:00 01/21/21 18:36 Enoxaparin Sodium 40 Mg/0.4 Ml Syringe SUBCUT 40 mg Q24H [facility] Administration Famotidine 20 mg 01/21/21 21:00 01/22/21 07:51 Famotidine 20 Mg Tablet PO 20 mg BID [facility] Administration Folic Acid 1 mg 01/21/21 09:00 01/22/21 07:51 Folic Acid 1 Mg Tablet PO 1 mg DAILY [facility] Administration Medication 1 each 01/21/21 09:00 No Benzodiazepines MISCELLANE DAILY [facility] Morphine Sulfate 2 mg 01/19/21 18:32 01/22/21 07:51 Morphine Sulfate 2 Mg/Ml Cartridge IVPUSH 2 mg Q4H PRN Administration anxiety/restlessness Nicotine Polacrilex 2 mg 01/19/21 18:59 Nicotine Polacrilex 2 Mg Gum BUCCAL Q2H PRN withdrawl Ondansetron HCl 4 mg 01/19/21 18:32 01/21/21 15:03 Ondansetron Hcl 4 Mg/2 Ml Vial IVPUSH 4 mg Q8H PRN Administration Nausea and Vomiting Phenobarbital 15 mg 01/22/21 21:00 Phenobarbital 15 Mg Tablet PO 01/24/21 09:01 BID [facility] Phenobarbital 15 mg 01/25/21 09:00 Phenobarbital 15 Mg Tablet PO 01/26/21 09:01 DAILY [facility] Prochlorperazine Edisylate 10 mg 01/21/21 18:18 01/22/21 03:45 Prochlorperazine Edisylate 10 Mg/2 Ml Vial IV 10 mg Q8H PRN Administration Nausea and Vomiting Sodium Chloride 3 ml 01/20/21 00:00 01/22/21 07:50 0.9 % Sodium Chloride Flush 3 Ml Syringe IVFLUSH 3 ml QSHIFT [facility] Administration Thiamine HCl 100 mg 01/21/21 09:00 01/22/21 07:51 Thiamine Hcl 100 Mg Tablet PO 100 mg DAILY [facility] Administration Physical Exam Vital Signs: Vital Signs: Last Vital Signs Temp 96.8 F 01/22/21 11:10 Pulse 108 H 01/22/21 11:10 Resp 18 01/22/21 11:10 BP 144/97 H 01/22/21 11:10 Pulse Ox 96 04/06/21 11:10 Body Mass Index 22.6 Const: General: cooperative, comfortable, no acute distress and alert Nutritional Appearance: average body habitus Orientation/consciousness: patient oriented x3 Limitations: no limitations Resp: Effort & Inspection: normal respiratory effort, no audible wheezes, no cough and not labored Cardio: Rate: regular rate and tachycardic GI: Other: nondistended, soft, no focal findings Inspection: No obesity and No visible herniation Palpation (GI): Soft to palpation, nontender and no guarding Auscultation: normal bowel sounds Skin: General skin exam: no rashes or lesions noted Neuro: General: patient oriented x3 Results Labs CBC & Chem 7: 01/24/21 05:21 01/24/21 05:21 Microbiology Microbiology Results: Microbiology 01/19/21 15:20 Blood - Venous Blood Culture - Preliminary No growth after 48 hours. 01/19/21 15:12 Blood - Venous Blood Culture - Preliminary No growth after 48 hours. Assessment and Plan (1) Abdominal pain: Status: Acute Patient denies abdominal pain @ this time. He says he is hungry. Would try to advance diet. With cocaine in urine mesenteric insufficiency is always a possibility. Nothing on the CT to suggest ischemic event. If pain recurs with fever would consider MRA or CT angio of Abdomen. If no fever but pain would consider doing egd. Will follow. (2) Fever of unknown origin: Problem details: There doesnt seem to be specific infectious source seen although abdominal discomfort maybe related to infarction from cocaine use mesentery He also may have cotton fever from cocaine use(as per ID) Status: Acute Patient 's fever has trended down since admission. Review of record and patient exam does not suggest a GI source. Blood cultures pending. (3) Opiate withdrawal: Status: Acute Patient seems to be stabilizing on current management. (4) Polysubstance abuse: Status: Acute This seems to be ongoing problem. He needs to be seen by N/substance abuse counseling. Not sure that he is motivated at this time.
[2021-01-22 14:10] LABS: C Reactive Protein 0.45 mg/dL (< or = 0.50); Gamma Glutamyl Transpeptidase 22 U/L (11-51); Lactate Dehydrogenase 221 U/L (118-273)
--- NOTE | 2021-01-22 16:16 | HO.PM.IMPN ---
Subjective Subjective Date of Service: 01/22/21 Interval History: Fever, alcohol withdrawal, tachycardia, abdominal pain. Review of Systems Patient says he has nausea and vomiting significantly better than before., wants to eat now Denies any chest pain or shortness of breath Still has tremors Still feel very weak Still has abdominal pain but better than yesterday. No overnight fever. Physical Exam Vital Signs: Vital Signs: Last Vital Signs Temp 98.8 F 01/22/21 15:46 Pulse 101 H 01/22/21 15:46 Resp 19 01/22/21 15:46 BP 130/90 H 01/22/21 15:46 Pulse Ox 96 01/22/21 15:46 Body Mass Index 22.6 Physical exam: Constitutional: Not in acute distress Cvs: rrr, [id number] , no murmur res: clear to auscultation ,no rhonchii or wheezing abd: no rebound or guarding ,has mild abd pain seems better than yesterday , bs present. ext pulses present , no cyanosis neuro: axo3 , nonfocal, has tremers. Objective Data Current Medications Generic Name Dose Route Start Last Admin Trade Name Freq PRN Reason Stop Dose Admin Acetaminophen 650 mg 01/19/21 18:32 01/21/21 05:18 Acetaminophen 325 Mg Tablet PO 650 mg Q6H PRN Administration Pain, Mild (Pain Scale 1-3) Clonidine HCl 0.1 mg 01/22/21 15:00 01/22/21 14:16 Clonidine Hcl 0.1 Mg Tablet PO 0.1 mg TID [facility] Administration Protocol Enoxaparin Sodium 40 mg 01/19/21 19:00 01/21/21 18:36 Enoxaparin Sodium 40 Mg/0.4 Ml Syringe SUBCUT 40 mg Q24H [facility] Administration Famotidine 20 mg 01/21/21 21:00 01/22/21 07:51 Famotidine 20 Mg Tablet PO 20 mg BID [facility] Administration Folic Acid 1 mg 01/21/21 09:00 01/22/21 07:51 Folic Acid 1 Mg Tablet PO 1 mg DAILY [facility] Administration Medication 1 each 01/21/21 09:00 No Benzodiazepines MISCELLANE DAILY [facility] Metoprolol Tartrate 12.5 mg 01/22/21 17:00 Metoprolol Tartrate 12.5 Mg Halftab PO QID [facility] Protocol Morphine Sulfate 2 mg 01/19/21 18:32 01/22/21 14:15 Morphine Sulfate 2 Mg/Ml Cartridge IVPUSH 2 mg Q4H PRN Administration anxiety/restlessness Nicotine Polacrilex 2 mg 01/19/21 18:59 Nicotine Polacrilex 2 Mg Gum BUCCAL Q2H PRN withdrawl Ondansetron HCl 4 mg 01/19/21 18:32 01/21/21 15:03 Ondansetron Hcl 4 Mg/2 Ml Vial IVPUSH 4 mg Q8H PRN Administration Nausea and Vomiting Phenobarbital 15 mg 01/22/21 21:00 Phenobarbital 15 Mg Tablet PO 01/24/21 09:01 BID [facility] Phenobarbital 15 mg 01/25/21 09:00 Phenobarbital 15 Mg Tablet PO 01/26/21 09:01 DAILY [facility] Prochlorperazine Edisylate 10 mg 01/21/21 18:18 01/22/21 03:45 Prochlorperazine Edisylate 10 Mg/2 Ml Vial IV 10 mg Q8H PRN Administration Nausea and Vomiting Sodium Chloride 3 ml 01/20/21 00:00 01/22/21 07:50 0.9 % Sodium Chloride Flush 3 Ml Syringe IVFLUSH 3 ml QSHIFT [facility] Administration Thiamine HCl 100 mg 01/21/21 09:00 01/22/21 07:51 Thiamine Hcl 100 Mg Tablet PO 100 mg DAILY [facility] Administration Labs CBC & Chem 7: 01/21/21 05:44 01/21/21 05:44 Microbiology Microbiology Results: Microbiology 01/19/21 15:20 Blood - Venous Blood Culture - Preliminary No growth after 48 hours. 01/19/21 15:12 Blood - Venous Blood Culture - Preliminary No growth after 48 hours. Assessment and Plan (1) Abdominal pain: Status: Acute (2) Alcohol abuse with withdrawal: Status: Acute (3) Opiate withdrawal: Status: Acute (4) Acute viral syndrome: Status: Acute (5) Elevated troponin: Status: Acute (6) Intractable nausea and vomiting: Status: Acute (7) Polysubstance abuse: Status: Acute (8) Hypertension: Status: Acute (9) Sinus tachycardia: Status: Acute Assessment and Plan: 35-year-old man admitted with multiple abnormalities but initially presenting with intractable nausea and vomiting, body aches. He was noted to be tachycardic with an elevation in his troponin which seem likely related to demand ischemia from cocaine use. 1.Alcohol abuse and withdrawal : somewhat improving continue phenobarb protocol , thiamine and folic acid, care team eval prior to discharge. 2.Viral syndrome. No source of infection (CXR, UA, COVID neg),with body aches, runny nose over the last several days. LFTs within normal limits, respiratory panel negative. Fevers overnight, continue supportive care, hiv nonreactive. blood cultures neg@48 hrs ID consult-? abd pain question of coacaine related -ct abd pending added Gi eval. 3.Leukocytosis likely reactive /due to viral infection: trending down, follow cbc. 4.Elevated troponin/sinus tachycardia/elevated blood pressure. Likely from cocaine use. CTA chest negative for VTE, no history of hypertension, Case discussed with Cardiology Dr. Blank he recommend no further testing and feels symptoms related to cocaine use, alcohol withdrawal, Strongly recommend to abstain from cocaine . echo added. added metoprolol 12.5 mg q6hr continue clonidine 5.Intractable nausea and vomiting likely due to withdrawal/ gastritis: on anti. emetics, Pepcid, tolerating diet. 6.Cocaine ,heroin abuse and marijuana use continue morphine, and clonidine for withdrawal symptoms. 7.Gastritis. Chronic, Continue Pepcid. 8.Smoker. Smoking cessation advise, continue Nicorette gums. DVT prophylaxis with Lovenox
[2021-01-22] MEDS: Metoprolol Tartrate 12.5 MG HALFTAB PO ×2 (16:55→20:16)
[2021-01-22 17:24] LABS: Hematocrit 45.7 % (42-52); Hemoglobin 16.2 g/dl (14.0-18.0); Mean Corpuscular HGB Conc 35.4 g/dl (31.0-36.0); Mean Corpuscular Hemoglobin 30.7 pg (27.0-33.0); Mean Corpuscular Volume 86.7 fL (80-98); Mean Platelet Volume 10.1 fL (9.4-12.4); Platelet Count 251 X10*3/uL (160-400); Red Blood Count 5.27 X10*6/uL (4.60-5.80); Red Cell Distribution Width 12.2 % (11.0-16.0); White Blood Count 15.3 X10*3/uL (4.8-10.8)
[2021-01-22] MEDS: Enoxaparin Sodium 40 MG/0.4 ML SYRINGE SUBCUT (18:40)
[2021-01-22] MEDS: PHENobarbitaL 15 MG TABLET PO (20:16)
[2021-01-22] MEDS: metroNIDAZOLE/NS 500 MG/100 ML PIGGYBACK 100 MG IV (20:17)
[2021-01-22] MEDS: levoFLOXacin/D5W 500 MG/100 ML PIGGYBACK 100 MG IV (21:21)
--- NOTE | 2021-01-22 21:34 | PM.IDPN ---
Subjective Subjective Date of Service: 01/22/21 Interval History: he has some abdominal discomfort generally Objective Data Labs CBC & Chem 7: 01/22/21 17:16 01/21/21 05:44 Labs: Laboratory Results - last 24 hr 01/21/21 01/22/21 05:44 17:16 WBC 15.3 H RBC 5.27 Hgb 16.2 Hct 45.7 MCV 86.7 MCH 30.7 MCHC 35.4 RDW 12.2 Plt Count 251 MPV 10.1 Absolute Nucleated RBC 0.000 Nucleated RBC % (auto) 0.0 GGT 22 Lactate Dehydrogenase 221 C-Reactive Protein 0.45 Microbiology Microbiology Results: Microbiology 01/19/21 15:20 Blood - Venous Blood Culture - Preliminary No growth after 48 hours. 01/19/21 15:12 Blood - Venous Blood Culture - Preliminary No growth after 48 hours. Physical Exam Vital Signs: Vital Signs: Last Vital Signs Temp 98.6 F 01/22/21 19:28 Pulse 101 H 01/22/21 20:16 Resp 16 01/22/21 20:23 BP 152/97 H 01/22/21 20:16 Pulse Ox 96 01/22/21 19:28 Body Mass Index 22.6 Const: General: cooperative HENMT: Head: Yes normal to inspection Mouth: Normal oral and palatal mucosa present Resp: Effort & Inspection: normal respiratory effort Cardio: Rate: regular rate Rhythm: regular rhythm GI: Palpation (GI): Soft to palpation and nontender Assessment and Plan Assessment and plan (1) Colitis: Problem details: He has some colitis ?salmonella/campylobacter?cdiff/other viral Status: Acute Assessment and Plan: Levaquin and Flagyl for a week Time Spent With Patient Time: Total time spent is greater than 50% in coordination of care (as documented) at patient's floor/unit and/or counseling patient: Time with patient: 15 - 24 minutes
[2021-01-23] VITALS (17 sets, daily range): BP systolic 130–146; BP diastolic 85–99; PULSE 74–111; RESP 16–20; TEMP 36.4–37.2; O2SAT 93–98
[2021-01-23] MEDS: 0.9 % Sodium Chloride Flush 3 ML SYRINGE IVFLUSH ×4 (00:28→19:47)
[2021-01-23] MEDS: Morphine Sulfate 2 MG/ML CARTRIDGE IVPUSH ×4 (03:38→21:49)
[2021-01-23] MEDS: Thiamine HCL 100 MG TABLET PO (07:59)
[2021-01-23] MEDS: Famotidine 20 MG TABLET PO ×2 (07:59→22:06)
[2021-01-23] MEDS: metroNIDAZOLE/NS 500 MG/100 ML PIGGYBACK 100 MG IV ×2 (07:59→23:04)
[2021-01-23] MEDS: Folic Acid 1 MG TABLET PO (07:59)
[2021-01-23] MEDS: cloNIDine HCL 0.1 MG TABLET PO ×3 (08:01→22:08)
[2021-01-23] MEDS: Metoprolol Tartrate 12.5 MG HALFTAB PO (08:01)
[2021-01-23] MEDS: PHENobarbitaL 15 MG TABLET PO ×2 (08:02→22:06)
--- NOTE | 2021-01-23 09:26 | PM.PNCARD ---
Subjective Subjective Date of Service: 01/23/21 <HANNAH Pérez - Last Filed: 01/23/21 09:37> 01/23/21 <Abdi Broussard MD - Last Filed: 01/23/21 13:47> Principal diagnosis: Sinus tachycardia, elevated troponin <HANNAH Pérez - Last Filed: 01/23/21 09:37> Interval history: Cardiology follow up for sinus tach, elevted trop. Seen at 0900. Today he reports feeling better than admit. States he can eat and swallow without nausea or discomfort. No chest pains. Does not feel heart palpitations. No lightheadedness. No edema. Sitting in chair. <HANNAH Pérez - Last Filed: 01/23/21 09:37> Review of Systems Review of Systems as above <HANNAH Pérez - Last Filed: 01/23/21 09:37> Yes all other systems are reviewed and are negative <HANNAH Pérez - Last Filed: 01/23/21 09:37> Physical Exam Vital Signs: Last Vital Signs Temp 97.7 F 01/23/21 08:00 Pulse 103 H 01/23/21 08:01 Resp 16 01/23/21 08:00 BP 135/93 H 01/23/21 08:01 Pulse Ox 96 01/23/21 08:00 Body Mass Index 22.6 <HANNAH Pérez - Last Filed: 01/23/21 09:37> Const General: cooperative, no acute distress, alert and awake <HANNAH Pérez Last Filed: 01/23/21 09:37> Orientation/consciousness: patient oriented x3 <HANNAH Pérez - Last Filed: 01/23/21 09:37> Neck Neck: Yes normal visual inspection and Yes no JVD <HANNAH Pérez Last Filed: 01/23/21 09:37> Resp Effort & Inspection: normal respiratory effort, able to speak in complete sentences and not labored <HANNAH Pérez Last Filed: 01/23/21 09:37> Auscultation: clear to auscultation bilaterally, no crackles, no rales, no rhonchi and no wheezes <[facility] GREG Leach-C - Last Filed: 01/23/21 09:37> Cardio Other: Rapid rate heart tones <[facility] ROBERTA LeachC - Last Filed: 01/23/21 09:37> Jugular venous distension: JVD present <[facility] GREG LeachC - Last Filed: 01/23/21 09:37> Palpation: normal PMI <[facility] GREG LeachC - Last Filed: 01/23/21 09:37> Rate: regular rate <[facility] GREG Leach-C - Last Filed: 01/23/21 09:37> Rhythm: regular rhythm <Kyara M GREG Leach - Last Filed: 01/23/21 09:37> Heart sounds: S1 normal heart sound present and S2 normal heart sound present <[facility] GREG Leach-C - Last Filed: 01/23/21 09:37> Peripheral pulses: Peripheral pulses 2+ throughout <[facility] GREG LeachC - Last Filed: 01/23/21 09:37> GI Inspection: Yes normal to inspection <[facility] GREG Leach-C - Last Filed: 01/23/21 09:37> Neuro General: patient oriented x3 <Kyara ROBERTA LeachC - Last Filed: 01/23/21 09:37> Extrem General: Yes normal to inspection and No edema <[facility] GREG Leach-C - Last Filed: 01/23/21 09:37> Results Labs and Meds Result diagrams: : 01/22/21 17:16 01/21/21 05:44 <[facility] Haylee [employer] SERVICE SPECIALIST-C - Last Filed: 01/23/21 09:37> Lab results: Laboratory Results - last 24 hr 01/21/21 01/22/21 05:44 17:16 WBC 15.3 H RBC 5.27 Hgb 16.2 Hct 45.7 MCV 86.7 MCH 30.7 MCHC 35.4 RDW 12.2 Plt Count 251 MPV 10.1 Absolute Nucleated RBC 0.000 Nucleated RBC % (auto) 0.0 GGT 22 Lactate Dehydrogenase 221 C-Reactive Protein 0.45 <HANNAH Pérez - Last Filed: 01/23/21 09:37> Imaging Radiologist's impression: Impressions Abdomen/Pelvis CT 01/22/21 15:30 IMPRESSION: New mild wall thickening of the entire colon suggestive of pancolitis. There is also diverticulosis of the colon without evidence of diverticulitis.. <HANNAH Pérez - Last Filed: 01/23/21 09:37> Progress Note: A&P Assessment and plan (1) Sinus tachycardia: Status: Acute <HANNAH Pérez - Last Filed: 01/23/21 09:37> Assessment and Plan: Admit with gastritis, colitis, viral syndrome, opiate and alcohol withdrawal. EKG/ Tele showing frequent sinus tachycardia with rates as high as 160s. EKG Sinus tach, no acute ST/ T wave abn. CTA showed no PE. CXR no acute findings. Echo normal. Was started on low dose Metoprolol. Tele still shows elevated rates with activity, ambulation. Asymptomatic. Tachycardia is likely in response to his viral syndrome and substance withdrawal. Will check TSH for completeness. Tox screen positive for cocaine on admit. Recommend Not discharge with BB use. No further testing needed at this time. <HANNAH Pérez - Last Filed: 01/23/21 09:37> Patient seen and case discussed with Kyara Leach. Patient not having any cardiac symptoms. Denies chest pain or palpitations. Remains persistently sinus tachycardia which appears somewhat inappropriate responded to metoprolol therapy. He also has underlying possible acute viral syndrome versus colitis which could explain is sinus tachycardia. Continue IV hydration. Increase metoprolol to 25 mg q.6 hours. Discussed with patient about not using cocaine in conjunction metoprolol therapy. He showed understanding and says that he has given up cocaine and alcohol use. Will sign of the case. <Abdi Broussard MD - Last Filed: 01/23/21 13:47> (2) Elevated troponin: Status: Acute <HANNAH Pérez - Last Filed: 01/23/21 09:37> Assessment and Plan: Troponins 142, 136. No chest pains. Cardiac testing as above. Mostly likely related to his cocaine use, substance use. Reviewed need for complete abstinence of substances following discharge. <HANNAH Pérez - Last Filed: 01/23/21 09:37> (3) Acute viral syndrome: Status: Acute <HANNAH Pérez Last Filed: 01/23/21 09:37> Assessment and Plan: Being followed by ID, hospitalist <HANNAH Pérez - Last Filed: 01/23/21 09:37> (4) Colitis: Problem details: He has some colitis ?salmonella/campylobacter?cdiff/other viral <HANNAH Pérez - Last Filed: 01/23/21 09:37> Status: Acute <HANNAH Pérez - Last Filed: 01/23/21 09:37> (5) Opiate withdrawal: Status: Acute <HANNAH Pérez Last Filed: 01/23/21 09:37> (6) Alcohol abuse with withdrawal: Status: Acute <HANNAH Pérez Last Filed: 01/23/21 09:37> Fall Risk Details Current Medications: Current Medications Generic Name Dose Route Start Last Admin Trade Name Freq PRN Reason Stop Dose Admin Acetaminophen 650 mg 01/19/21 18:32 01/21/21 05:18 Acetaminophen 325 Mg Tablet PO 650 mg Q6H PRN Administration Pain, Mild (Pain Scale 1-3) Clonidine HCl 0.1 mg 01/22/21 15:00 01/23/21 08:01 Clonidine Hcl 0.1 Mg Tablet PO 0.1 mg TID [facility] Administration Protocol Enoxaparin Sodium 40 mg 01/19/21 19:00 01/22/21 18:40 Enoxaparin Sodium 40 Mg/0.4 Ml Syringe SUBCUT 40 mg Q24H [facility] Administration Famotidine 20 mg 01/21/21 21:00 01/23/21 07:59 Famotidine 20 Mg Tablet PO 20 mg BID [facility] Administration Folic Acid 1 mg 01/21/21 09:00 01/23/21 07:59 Folic Acid 1 Mg Tablet PO 1 mg DAILY [facility] Administration Levofloxacin 500 mg in 100 mls @ 100 mls/hr 01/22/21 19:00 01/22/21 22:31 Levaquin IV Infused Q24H [facility] Infusion Metronidazole 500 mg in 100 mls @ 100 mls/hr 01/22/21 20:00 01/23/21 09:16 Flagyl IV Infused Q12H [facility] Infusion Medication 1 each 01/21/21 09:00 No Benzodiazepines MISCELLANE DAILY [facility] Metoprolol Tartrate 12.5 mg 01/22/21 17:00 01/23/21 08:01 Metoprolol Tartrate 12.5 Mg Halftab PO 12.5 mg QID [facility] Administration Protocol Morphine Sulfate 2 mg 01/19/21 18:32 01/23/21 07:51 Morphine Sulfate 2 Mg/Ml Cartridge IVPUSH 2 mg Q4H PRN Administration anxiety/restlessness Nicotine Polacrilex 2 mg 01/19/21 18:59 Nicotine Polacrilex 2 Mg Gum BUCCAL Q2H PRN withdrawl Ondansetron HCl 4 mg 01/19/21 18:32 01/21/21 15:03 Ondansetron Hcl 4 Mg/2 Ml Vial IVPUSH 4 mg Q8H PRN Administration Nausea and Vomiting Phenobarbital 15 mg 01/22/21 21:00 01/23/21 08:02 Phenobarbital 15 Mg Tablet PO 01/24/21 09:01 15 mg BID [facility] Administration Phenobarbital 15 mg 01/25/21 09:00 Phenobarbital 15 Mg Tablet PO 01/26/21 09:01 DAILY [facility] Prochlorperazine Edisylate 10 mg 01/21/21 18:18 01/22/21 20:16 Prochlorperazine Edisylate 10 Mg/2 Ml Vial IV 10 mg Q8H PRN Administration Nausea and Vomiting Sodium Chloride 3 ml 01/20/21 00:00 01/23/21 07:59 0.9 % Sodium Chloride Flush 3 Ml Syringe IVFLUSH 3 ml QSHIFT [facility] Administration Thiamine HCl 100 mg 01/21/21 09:00 01/23/21 07:59 Thiamine Hcl 100 Mg Tablet PO 100 mg DAILY [facility] Administration <HANNAH Pérez - Last Filed: 01/23/21 09:37> Time Spent With Patient Time: Total time spent is greater than 50% in coordination of care (as documented) at patient's floor/unit and/or counseling patient: 18 <HANNAH Pérez - Last Filed: 01/23/21 09:37> Time with patient: 15 - 24 minutes <HANNAH Pérez - Last Filed: 01/23/21 09:37>
[2021-01-23] MEDS: Metoprolol Tartrate 25 MG TABLET PO ×3 (12:02→22:06)
[2021-01-23] MEDS: PHENobarbitaL 30 MG TABLET 90 MG PO (12:02)
--- NOTE | 2021-01-23 13:33 | MHC.CM.PN ---
no dc date at this time pt to be seen by care team prior to dc
--- NOTE | 2021-01-23 16:16 | P.PNIM_ITS ---
Subjective Subjective Date of Service: 01/23/21 Interval History: alcohol withdrawal, colitis Review of Systems Patient still has abdominal pain, Still tremulous Denies any shortness of breath or fever or chills or cough or phlegm nausea or vomiting or diarrahae. Denies any chest pain. Physical Exam Vital Signs: Vital Signs: Last Vital Signs Temp 98.1 F 01/23/21 15:11 Pulse 86 01/23/21 15:47 Resp 18 01/23/21 15:11 BP 132/89 01/23/21 15:47 Pulse Ox 98 01/23/21 15:11 Body Mass Index 22.6 Physical exam: Constitutional: Not in acute distress Cvs: rrr, [id number] , no murmur res: clear to auscultation ,no rhonchii or wheezing abd: no rebound or guarding ,has mild abd pain , bs present. ext pulses present , no cyanosis neuro: axo3 , nonfocal, has tremers. Objective Data Current Medications Generic Name Dose Route Start Last Admin Trade Name Darenq PRN Reason Stop Dose Admin Acetaminophen 650 mg 01/19/21 18:32 01/21/21 05:18 Acetaminophen 325 Mg Tablet PO 650 mg Q6H PRN Administration Pain, Mild (Pain Scale 1-3) Clonidine HCl 0.1 mg 01/22/21 15:00 01/23/21 15:47 Clonidine Hcl 0.1 Mg Tablet PO 0.1 mg TID TILA Administration Protocol Enoxaparin Sodium 40 mg 01/19/21 19:00 01/22/21 18:40 Enoxaparin Sodium 40 Mg/0.4 Ml Syringe SUBCUT 40 mg Q24H TILA Administration Famotidine 20 mg 01/21/21 21:00 01/23/21 07:59 Famotidine 20 Mg Tablet PO 20 mg BID TILA Administration Folic Acid 1 mg 01/21/21 09:00 01/23/21 07:59 Folic Acid 1 Mg Tablet PO 1 mg DAILY TILA Administration Levofloxacin 500 mg in 100 mls @ 100 mls/hr 01/22/21 19:00 01/22/21 22:31 Levaquin IV Infused Q24H TILA Infusion Metronidazole 500 mg in 100 mls @ 100 mls/hr 01/22/21 20:00 01/23/21 09:16 Flagyl IV Infused Q12H TILA Infusion Medication 1 each 01/21/21 09:00 No Benzodiazepines MISCELLANE DAILY [facility] Metoprolol Tartrate 25 mg 01/23/21 13:00 01/23/21 12:02 Metoprolol Tartrate 25 Mg Tablet PO 25 mg QID TILA Administration Protocol Morphine Sulfate 2 mg 01/19/21 18:32 01/23/21 12:02 Morphine Sulfate 2 Mg/Ml Cartridge IVPUSH 2 mg Q4H PRN Administration anxiety/restlessness Nicotine Polacrilex 2 mg 01/19/21 18:59 Nicotine Polacrilex 2 Mg Gum BUCCAL Q2H PRN withdrawl Ondansetron HCl 4 mg 01/19/21 18:32 01/21/21 15:03 Ondansetron Hcl 4 Mg/2 Ml Vial IVPUSH 4 mg Q8H PRN Administration Nausea and Vomiting Phenobarbital 15 mg 01/22/21 21:00 01/23/21 08:02 Phenobarbital 15 Mg Tablet PO 01/24/21 09:01 15 mg BID TILA Administration Phenobarbital 15 mg 01/25/21 09:00 Phenobarbital 15 Mg Tablet PO 01/26/21 09:01 DAILY [facility] Prochlorperazine Edisylate 10 mg 01/21/21 18:18 01/22/21 20:16 Prochlorperazine Edisylate 10 Mg/2 Ml Vial IV 10 mg Q8H PRN Administration Nausea and Vomiting Sodium Chloride 3 ml 01/20/21 00:00 01/23/21 07:59 0.9 % Sodium Chloride Flush 3 Ml Syringe IVFLUSH 3 ml QSHIFT [facility] Administration Thiamine HCl 100 mg 01/21/21 09:00 01/23/21 07:59 Thiamine Hcl 100 Mg Tablet PO 100 mg DAILY TILA Administration Labs CBC & Chem 7: 01/22/21 17:16 01/21/21 05:44 Microbiology Microbiology Results: Microbiology 01/19/21 15:20 Blood - Venous Blood Culture - Preliminary No growth after 48 hours. 01/19/21 15:12 Blood - Venous Blood Culture - Preliminary No growth after 48 hours. Assessment and Plan (1) Colitis: Problem details: He has some colitis ?salmonella/campylobacter?cdiff/other viral Status: Acute (2) Fever of unknown origin: Problem details: There doesnt seem to be specific infectious source seen although abdominal discomfort maybe related to infarction from cocaine use mesentery He also may have cotton fever from cocaine use Status: Acute (3) Alcohol abuse with withdrawal: Status: Acute Assessment and Plan: 35-year-old man admitted with multiple abnormalities but initially presenting with intractable nausea and vomiting, body aches. He was noted to be tachycardic with an elevation in his troponin which seem likely related to demand ischemia from cocaine use. 1.Alcohol abuse and withdrawal : somewhat improving still withdrawing added additional phenobarbital, continue phenobarb protocol , thiamine and folic acid, care team eval prior to discharge. 2.Viral syndrome. No source of infection (CXR, UA, COVID neg),with body aches, runny nose over the last several days. LFTs within normal limits, respiratory panel negative. Fevers overnight, continue supportive care, hiv nonreactive. blood cultures neg@48 hrs ID consult-? abd pain -probable related to colits continue levaquin/flagyl day2. added stool studies 3.Leukocytosis likely reactive /due to viral infection: trending down, follow cbc. 4.Elevated troponin/sinus tachycardia/elevated blood pressure. Likely from cocaine use. CTA chest negative for VTE, no history of hypertension, Case discussed with Cardiology Dr. Blnak he recommend no further testing and feels symptoms related to cocaine use, alcohol withdrawal, Strongly recommend to abstain from cocaine . echo noted-ef: 55-60%, normal systolic and diastolic function. added metoprolol 25 mg q6hr continue clonidine 5.Intractable nausea and vomiting likely due to withdrawal/ gastritis:seems to be improved with anti. emetics, Pepcid, tolerating diet. 6.Cocaine ,heroin abuse and marijuana use continue morphine, and clonidine for withdrawal symptoms. 7.Gastritis. Chronic, Continue Pepcid. 8.Smoker. Smoking cessation advise, continue Nicorette gums. DVT prophylaxis with Lovenox
[2021-01-23] MEDS: Enoxaparin Sodium 40 MG/0.4 ML SYRINGE SUBCUT (19:46)
[2021-01-23] MEDS: levoFLOXacin/D5W 500 MG/100 ML PIGGYBACK 100 MG IV (19:47)
[2021-01-24] VITALS (9 sets, daily range): BP systolic 119–144; BP diastolic 72–92; PULSE 65–122; RESP 15–20; TEMP 36.2–36.9; O2SAT 97–99
[2021-01-24] MEDS: Morphine Sulfate 2 MG/ML CARTRIDGE IVPUSH ×2 (05:27→16:14)
[2021-01-24 06:09] LABS: Hematocrit 45.2 % (42-52); Hemoglobin 15.8 g/dl (14.0-18.0); Mean Corpuscular Hemoglobin 30.5 pg (27.0-33.0); Mean Corpuscular Volume 87.3 fL (80-98); Mean Platelet Volume 10.5 fL (9.4-12.4); Platelet Count 243 X10*3/uL (160-400); Red Blood Count 5.18 X10*6/uL (4.60-5.80); Red Cell Distribution Width 12.1 % (11.0-16.0); White Blood Count 9.2 X10*3/uL (4.8-10.8)
[2021-01-24 06:42] LABS: Anion Gap 13 (12-20); Blood Urea Nitrogen 14 mg/dL (9-16); Calcium 8.9 mg/dL (8.4-10.2); Carbon Dioxide 27 mmol/L (22-29); Chloride 102 mmol/L (96-108); Creatinine Clr Calc Pharmacy 122.5; Estimated Glomerular Filt Rate > 60; Glucose Random 91 mg/dL (60-115); Potassium 3.4 mmol/L (3.3-5.1); Sodium 139 mmol/L (135-145)
[2021-01-24] MEDS: Folic Acid 1 MG TABLET PO (09:24)
[2021-01-24] MEDS: Thiamine HCL 100 MG TABLET PO (09:24)
[2021-01-24] MEDS: cloNIDine HCL 0.1 MG TABLET PO ×3 (09:24→21:50)
[2021-01-24] MEDS: Metoprolol Tartrate 25 MG TABLET PO ×4 (09:24→21:50)
[2021-01-24] MEDS: PHENobarbitaL 15 MG TABLET PO (09:24)
[2021-01-24] MEDS: metroNIDAZOLE/NS 500 MG/100 ML PIGGYBACK 100 MG IV ×2 (09:25→21:50)
[2021-01-24] MEDS: 0.9 % Sodium Chloride Flush 3 ML SYRINGE IVFLUSH (09:25)
[2021-01-24] MEDS: Famotidine 20 MG TABLET PO ×2 (09:25→21:50)
[2021-01-24] MEDS: PHENobarbitaL sodium 130 MG/ML VIAL IM (10:25)
--- NOTE | 2021-01-24 10:34 | PC.NURSE ---
Patient had remain slightly tremulous and HE 120's. Dr. Ch up to see patient. ordered Phenobar 130 IM x 1. see MAR (med given per MD order).
[2021-01-24] MEDS: Acetaminophen 325 MG TABLET 650 MG PO (12:54)
--- NOTE | 2021-01-24 13:00 | MHC.RECOVRN ---
T/w met with pt to f/u regarding withdrawal symptoms and aftercare plan. Pt denies withdrawal symptoms at this time. Pt is interested in ATS level of care after d/c from [facility] specifically [facility]. T/w spoke with [facility] to verify they are accepting patients with the imminent change of web architect. [facility] is accepting ATS level of care pts, not CSS. CM aware. Will continue to follow.
--- NOTE | 2021-01-24 13:17 | MHC.CM.PN ---
CM was approached by pts mother and grandmother in the [place]. Pts grandmother reports the pt is interested in going to [facility] upon DC. She reports she and the pts mother went to the detox today and they requested a nurse/CM from here contact them to discuss the possibility of pt being admitted to their facility. Pts grandmother provided a phone number ([phone]). Recovery nurse took the number and indicated she would contact them.
--- NOTE | 2021-01-24 14:11 | HO.PM.IMPN ---
Subjective Subjective Date of Service: 01/24/21 Interval History: Alcohol withdrawal, colitis Review of Systems Abdomen pain seems improving Patient is still significantly tremulous and tachycardic. Denies any nausea or vomiting or diarrhea or fever or chills No cough or phlegm. Physical Exam Vital Signs: Vital Signs: Last Vital Signs Temp 98.4 F 01/24/21 12:00 Pulse 90 01/24/21 12:00 Resp 18 01/24/21 12:00 BP 129/87 01/24/21 12:00 Pulse Ox 99 01/24/21 12:00 Body Mass Index 22.6 Constitutional: Not in acute distress Cvs: rrr, [id number] , no murmur res: clear to auscultation ,no rhonchii or wheezing abd: no rebound or guarding ,has mild abd pain , bs present. ext pulses present , no cyanosis neuro: axo3 , nonfocal, has tremers. Objective Data Current Medications Generic Name Dose Route Start Last Admin Trade Name Freq PRN Reason Stop Dose Admin Acetaminophen 650 mg 01/19/21 18:32 01/24/21 12:54 Acetaminophen 325 Mg Tablet PO 650 mg Q6H PRN Administration Pain, Mild (Pain Scale 1-3) Clonidine HCl 0.1 mg 01/22/21 15:00 01/24/21 13:13 Clonidine Hcl 0.1 Mg Tablet PO 0.1 mg TID TILA Administration Protocol Enoxaparin Sodium 40 mg 01/19/21 19:00 01/23/21 19:46 Enoxaparin Sodium 40 Mg/0.4 Ml Syringe SUBCUT 40 mg Q24H TILA Administration Famotidine 20 mg 01/21/21 21:00 01/24/21 09:25 Famotidine 20 Mg Tablet PO 20 mg BID TILA Administration Folic Acid 1 mg 01/21/21 09:00 01/24/21 09:24 Folic Acid 1 Mg Tablet PO 1 mg DAILY TILA Administration Levofloxacin 500 mg in 100 mls @ 100 mls/hr 01/22/21 19:00 01/23/21 23:56 Levaquin IV Infused Q24H TILA Infusion Metronidazole 500 mg in 100 mls @ 100 mls/hr 01/22/21 20:00 01/24/21 10:25 Flagyl IV Infused Q12H TILA Infusion Medication 1 each 01/21/21 09:00 No Benzodiazepines MISCELLANE DAILY TILA Metoprolol Tartrate 25 mg 01/23/21 13:00 01/24/21 13:13 Metoprolol Tartrate 25 Mg Tablet PO 25 mg QID TILA Administration Protocol Morphine Sulfate 2 mg 01/19/21 18:32 01/24/21 05:27 Morphine Sulfate 2 Mg/Ml Cartridge IVPUSH 2 mg Q4H PRN Administration anxiety/restlessness Nicotine Polacrilex 2 mg 01/19/21 18:59 Nicotine Polacrilex 2 Mg Gum BUCCAL Q2H PRN withdrawl Ondansetron HCl 4 mg 01/19/21 18:32 01/21/21 15:03 Ondansetron Hcl 4 Mg/2 Ml Vial IVPUSH 4 mg Q8H PRN Administration Nausea and Vomiting Phenobarbital 15 mg 01/25/21 09:00 Phenobarbital 15 Mg Tablet PO 01/26/21 09:01 DAILY [facility] Prochlorperazine Edisylate 10 mg 01/21/21 18:18 01/22/21 20:16 Prochlorperazine Edisylate 10 Mg/2 Ml Vial IV 10 mg Q8H PRN Administration Nausea and Vomiting Sodium Chloride 3 ml 01/20/21 00:00 01/24/21 09:25 0.9 % Sodium Chloride Flush 3 Ml Syringe IVFLUSH 3 ml QSHIFT [facility] Administration Thiamine HCl 100 mg 01/21/21 09:00 01/24/21 09:24 Thiamine Hcl 100 Mg Tablet PO 100 mg DAILY TILA Administration Labs CBC & Chem 7: 01/24/21 05:21 01/24/21 05:21 Microbiology Microbiology Results: Microbiology 01/19/21 15:20 Blood - Venous Blood Culture - Preliminary No growth after 48 hours. 01/19/21 15:12 Blood - Venous Blood Culture - Preliminary No growth after 48 hours. Assessment and Plan (1) Colitis: Problem details: He has some colitis ?salmonella/campylobacter?cdiff/other viral Status: Acute (2) Sinus tachycardia: Status: Acute (3) Alcohol abuse with withdrawal: Status: Acute Assessment and Plan: 35-year-old man admitted with multiple abnormalities but initially presenting with intractable nausea and vomiting, body aches. He was noted to be tachycardic with an elevation in his troponin which seem likely related to demand ischemia from cocaine use. 1.Alcohol abuse and withdrawal : somewhat improving still withdrawing added additional 130 mg phenobarbital, continue phenobarb protocol , thiamine and folic acid, care team eval prior to discharge. 2.Viral syndrome. No source of infection (CXR, UA, COVID neg),with body aches, runny nose over the last several days. LFTs within normal limits, respiratory panel negative. Fevers overnight, continue supportive care, hiv nonreactive. blood cultures neg@48 hrs ID consult-? abd pain -probable related to colits continue levaquin/flagyl day2. added stool studies 3.Leukocytosis likely reactive /due to viral infection: trending down, follow cbc. 4.Elevated troponin/sinus tachycardia/elevated blood pressure. Likely from cocaine use. CTA chest negative for VTE, no history of hypertension, Case discussed with Cardiology Dr. Blank he recommend no further testing and feels symptoms related to cocaine use, alcohol withdrawal, Strongly recommend to abstain from cocaine . echo noted-ef: 55-60%, normal systolic and diastolic function. added metoprolol 25 mg q6hr continue clonidine will add Lr @ 100 ml/hr 5.Intractable nausea and vomiting likely due to withdrawal/ gastritis:seems to be improved with anti. emetics, Pepcid, tolerating diet. 6.Cocaine ,heroin abuse and marijuana use continue morphine, and clonidine for withdrawal symptoms. 7.Gastritis. Chronic, Continue Pepcid. 8.Smoker. Smoking cessation advise, continue Nicorette gums. DVT prophylaxis with Lovenox (4) Fever of unknown origin: Problem details: There doesnt seem to be specific infectious source seen although abdominal discomfort maybe related to infarction from cocaine use mesentery He also may have cotton fever from cocaine use Status: Acute
[2021-01-24] MEDS: Lactated Ringers 1,000 ML 100 ML IV (16:12)
[2021-01-24] MEDS: levoFLOXacin/D5W 500 MG/100 ML PIGGYBACK 100 MG IV (17:41)
[2021-01-24] MEDS: Enoxaparin Sodium 40 MG/0.4 ML SYRINGE SUBCUT (17:41)
[2021-01-25 03:24] VITALS: BP 138/94; PULSE 87; RESP 16; TEMP 36.2; O2SAT 98
[2021-01-25] MEDS: Acetaminophen 325 MG TABLET 650 MG PO (04:31)
[2021-01-25 08:00] VITALS: BP 136/103; PULSE 130; RESP 18; TEMP 37.2; O2SAT 98
[2021-01-25 08:53] VITALS: BP 141/103; PULSE 130
[2021-01-25] MEDS: cloNIDine HCL 0.1 MG TABLET PO (08:53)
[2021-01-25] MEDS: Folic Acid 1 MG TABLET PO (08:53)
[2021-01-25 08:54] VITALS: BP 141/103; PULSE 130
[2021-01-25] MEDS: Famotidine 20 MG TABLET PO (08:54)
[2021-01-25] MEDS: metroNIDAZOLE/NS 500 MG/100 ML PIGGYBACK 100 MG IV (08:54)
[2021-01-25] MEDS: Metoprolol Tartrate 25 MG TABLET PO (08:54)
[2021-01-25] MEDS: PHENobarbitaL 15 MG TABLET PO (08:54)
[2021-01-25] MEDS: Thiamine HCL 100 MG TABLET PO (08:54)
[2021-01-25] MEDS: 0.9 % Sodium Chloride Flush 3 ML SYRINGE IVFLUSH (08:54)
--- NOTE | 2021-01-25 11:36 | MHC.RECOVSUP ---
Recovery Support note: CARE Team informed this account underwriter that patient is ready for discharge and he is seeking detox. Patient reports he is interested in going to [facility] or [facility]. Patient information has been faxed to both facilities. [facility] reports that they are unable to offer patient a bed as they do not feel patient will need detox at this point in his care and that they are unable to admit patient's to [facility] as they are closing down temporarily in the near future. This account underwriter awaits follow up from [facility].
[2021-01-25 11:41] VITALS: BP 130/92; PULSE 80; RESP 17; TEMP 36.9; O2SAT 98
--- NOTE | 2021-01-25 11:42 | MHC.CM.PN ---
per pt excpected to dc today with care team recmmendations for follow up counseling
--- NOTE | 2021-01-25 13:24 | P.DS_ITS ---
DS: Providers Provider Date of Service: 01/25/21 Date of admission: 01/19/21 18:32 Primary care physician: [facility] Consults: 01/19/21 18:50 Consult to Cardiology Routine Consulting Provider: Jaya Blank Reason for consultation: elevated trop, LVH Has provider been notified: No Consult to Care Team Routine Comment: Reason for consultation: cocaine and heroin use 01/21/21 07:52 Consult to Infectious Diseases Routine Consulting Provider: Adelaida Mallory Reason for consultation: fever Has provider been notified: No 01/22/21 08:02 Consult to Gastroenterology Routine Consulting Provider: Shanta Abraham Reason for consultation: abd pain/fever , cocaine use Has provider been notified: No 01/22/21 12:21 Consult to Care Team Routine Comment: Reason for consultation: caocaine /alcohol abuse DS: Diagnosis Discharge Diagnosis (1) Abdominal pain: Status: Acute (2) Fever of unknown origin: Status: Acute Problem details: There doesnt seem to be specific infectious source seen although abdominal discomfort maybe related to infarction from cocaine use mesentery He also may have cotton fever from cocaine use(as per ID) (3) Opiate withdrawal: Status: Acute (4) Polysubstance abuse: Status: Acute DS: Medications Discharge Medications Home Medications: Previous Rx's Medication Instructions Recorded dicyclomine 20 mg PO QID PRN #20 tab 12/09/20 omeprazole 40 mg PO DAILY #30 cap 12/09/20 ondansetron HCl [Zofran] 4 mg PO Q8H PRN #14 tab 12/09/20 sucralfate [Carafate] 1 g PO Q6H #60 tab 12/09/20 clonidine HCl 0.1 mg PO TID #60 tab 01/25/21 famotidine 20 mg PO BID #30 tab 01/25/21 folic acid 1 mg PO DAILY #30 tab 01/25/21 levofloxacin 500 mg PO DAILY #5 tab 01/25/21 metronidazole [Flagyl] 500 mg PO BID #10 tab 01/25/21 thiamine mononitrate (vit B1) 100 mg PO DAILY #30 tab 01/25/21 DS: Summary Hospital Course Hospital Course: 35 man presenting to complains nausea, vomiting and diffuse abdominal pain. He also reported fever and chills. He snorts heroin at least 1 bundle a day and uses marijuana and cocaine although he denies. He also denies alcohol abuse. He denies injection of heroin. Of the last couple days he reports body aches, runny nose, congestion nausea and vomiting. He denies any sick contacts, recent illness or recent travel. He reports abdominal pain with nausea and vomiting to be chronic since he was a child. His troponin was noted to be elevated at 142.8, 136.0, EKG showed left ventricular hypertrophy. He reported that he had some midsternal chest pressure that would come and go over the last several days without radiation. But most of his pain seems to be diffuse. He was noted to be tachycardic up to the 150s with temperature of 100.9 degrees. His blood pressure also peaked at 160/103. chest CT negative for PTE, chest x-ray negative for consolidation or effusion, urinalysis negative for infection, and no skin rash or open wounds noted. he was given multiple medications in the ER for his nausea including lorazepam, Zofran, Reglan, Benadryl, Pepcid. He was given a dose of diltiazem for his tachycardia. Will be admitted for further management and treatment of viral syndrome, and cocaine related troponin elevation. Hospital course problem shah section: 35-year-old man admitted with multiple abnormalities but initially presenting with intractable nausea and vomiting, body aches. He was noted to be tachycardic with an elevation in his troponin which seem likely related to demand ischemia from cocaine use. 1.Alcohol abuse and withdrawal : Started on phenobarb protocol and improved. 2. Patient also thought to have initially fever and leukocytosis workup- including chest x-ray and UA and COVID negative. CT abdomen showed colitis-patient was started on IV Vanco and Flagyl and subsequently patient improved significantly. Patient will go home on p.o. Levaquin and Flagyl. 3.Elevated troponin/sinus tachycardia/elevated blood pressure. Likely from cocaine use. CTA chest negative for VTE, no history of hypertension, Case discussed with Cardiology Dr. Blank he recommend no further testing and feels symptoms related to cocaine use, alcohol withdrawal, Strongly recommend to abstain from cocaine . echo -55-60%, systolic and diastolic function seems fine. Tachycardia was thought to be related to dehydration as well as alochol withdrawal . continue clonidine . Further management outpatient as per PCP.. 4.Cocaine ,heroin abuse: Cocaine and alcohol counseling was given to him: Seems like patient is trying to go outpatient drug ditox . program. Above management discussed with the patient in detail length he understand and in agreement with the above plan, time spent 50 minutes and 50% time spent on counseling. Significant findings: As above. Procedures performed: None. Treatment and response: As above. Complications: None. Time Spent with Patient Time attestation: Total time spent providing and/or coordinating discharge services: Discharge coordination time: Greater than 30 minutes Physical Exam Vital Signs: Vital Signs: Last Vital Signs Temp 98.5 F 01/25/21 11:41 Pulse 80 01/25/21 11:41 Resp 17 01/25/21 11:41 BP 130/92 H 01/25/21 11:41 Pulse Ox 98 01/25/21 11:41 Body Mass Index 22.6 Physical exam: Constitutional: Not in acute distress Cvs: rrr, [id number] , no murmur res: clear to auscultation ,no rhonchii or wheezing abd: no rebound or guarding ,has mild abd pain , bs present. ext pulses present , no cyanosis neuro: axo3 , nonfocal, has tremers. Discharge Plan Discharge Patient Disposition: Home, Self-Care Referrals: [place] [Primary Care Provider] - Discharge Medications: New clonidine HCl 0.1 mg Tablet 0.1 mg PO TID Qty: 60 RF: 0 folic acid 1 mg Tablet 1 mg PO DAILY Qty: 30 RF: 0 thiamine mononitrate (vit B1) 100 mg Tablet 100 mg PO DAILY Qty: 30 RF: 0 levofloxacin 500 mg tablet 500 mg PO DAILY Qty: 5 RF: 0 metronidazole [Flagyl] 500 mg tablet 500 mg PO BID Qty: 10 RF: 0 famotidine 20 mg Tablet 20 mg PO BID Qty: 30 RF: 0 Continued omeprazole 40 mg capsule,delayed release(DR/EC) 40 mg PO DAILY Qty: 30 RF: 0 sucralfate [Carafate] 1 gram tablet 1 g PO Q6H Qty: 60 RF: 0 dicyclomine 20 mg tablet 20 mg PO QID PRN (Reason: abdominal pain) Qty: 20 RF: 0 ondansetron HCl [Zofran] 4 mg tablet 4 mg PO Q8H PRN (Reason: nausea and vomiting) Qty: 14 RF: 0 Discharge Orders: Discharge Order (Routine); Ordered 01/25/21 Ordered By: Isadora Ch Diet: advance to usual diet Activity on Discharge: As tolerated Stand Alone Forms: Patient Portal Discharge page Care Plan Goals: Patient has history of alcoholism: admitted for intractable nausea vomiting- subsequently was started on phenobarb protocol, anxiety shah given clonidine and also received hydration and antiemetic for nausea vomiting. In addition found to have colitis: Started on IV antibiotics which was switched to p.o. antibiotic upon discharge once patient improved. Cocaine and alcohol counseling was given to him: Seems like patient is trying to go outpatient drug ditox . program. Health Concerns: As above. Plan of Treatment: As above. Assessment: As above. Discharge Date/Time: 01/25/21 14:20
--- NOTE | 2021-01-25 13:54 | MHC.CM.PN ---
dc home no servcies with resources provided by care team
--- NOTE | 2021-01-25 14:06 | MHC.RECOVSUP ---
Recovery Support note: This flex o writer operator updated patient that he had been declined from [facility]. Patient reports he is feeling OK and appears comfortable. This flex o writer operator awaits a call back from [facility] however patient expressed interest in discharging. This flex o writer operator obtained contact information for patient's mother. If [facility] has a bed for patient, this flex o writer operator will inform patient and his mother on how to proceed. Patient aware and agreeable to plan. Reviewed recovery support information with patient and encouraged him to present to [facility] for ongoing support. Patient is familiar with [facility] and has been therein the past. Discussed case with patient's RN.
== END 2021-01-25 14:20 | disposition home or self-care (01) | DRG 816 ==
LOC: HO.ED 18:10 → HO.EDOVER 18:41 → HO.IMC 01-20 23:42
PROVIDERS: Internal Medicine Gastroenterology; Nurse Practitioner Acute Care; Nurse Practitioner Family; Nurse Practitioner Primary Care; Admitting Provider Hospitalist; Emergency Provider Emergency Medicine; Visit Provider Internal Medicine
DX: T40.5X1A Poisoning by cocaine, accidental (unintentional), initial encounter (principal); A08.4 Viral intestinal infection, unspecified; D72.829 Elevated white blood cell count, unspecified; F17.210 Nicotine dependence, cigarettes, uncomplicated; I10 Essential (primary) hypertension; K29.50 Unspecified chronic gastritis without bleeding; F10.139 Alcohol abuse with withdrawal, unspecified; R50.2 Drug induced fever; Y92.9 Unspecified place or not applicable; R79.89 Other specified abnormal findings of blood chemistry; R00.0 Tachycardia, unspecified; F14.10 Cocaine abuse, uncomplicated; Z20.822 Contact with and (suspected) exposure to COVID-19; Z71.6 Tobacco abuse counseling; F11.13 Opioid abuse with withdrawal; Z88.0 Allergy status to penicillin; Z79.899 Other long term (current) drug therapy
CPT/HCPCS: 0241U; 36415; 71045; 71275; 74176; 80048; 80053; 80307; 80320; 81001; 82550; 82977; 83605; 83615; 84443; 84484; 85025; 85027; 85379; 85610; 85730; 86140; 87040; 87389; 93005; 93306; 96374; 96375; 99285; J1200; J1650; J1956; J2060; J2270; J2405; J2560; J2765; Q9967

== ENCOUNTER 2022-05-29 20:38 | Emergency (ER) | payer MEDICAID, SELFPAY ==
--- NOTE | ~2022-05-29 | XR_ITS ---
EXAMINATION: XR CHEST CLINICAL INFORMATION: Covid symptoms COMPARISON: Chest x-ray 01/19/2021 TECHNIQUE: Frontal view of the chest was obtained. FINDINGS: The lungs are clear. No airspace consolidation, pleural effusion, or pneumothorax. The cardiomediastinal silhouette is within normal limits. No acute osseous injury. XR/XR chest 1V IMPRESSION: 1. No acute pulmonary process.
[2022-05-29 20:45] VITALS: BP 128/84; PULSE 95; O2SAT 98
[2022-05-29 20:49] VITALS: BP 94/73; PULSE 103; RESP 18; TEMP 38; O2SAT 96; BMI 26.6
[2022-05-29 21:01] LABS: Basophils Absolute Auto 0.1 X10*3/uL (0.0-0.2); Basophils Percent Auto 0.6 % (0-2); Hematocrit 46.3 % (42.0-52.0); Hemoglobin 16.8 g/dl (14.0-18.0); Imm Gran Abs Auto 0.05 X10*3/uL (0.00-0.03); Imm Gran Pct Auto 0.5 % (0.0-0.4); Lymphocytes Absolute Auto 0.4 X10*3/uL (1.2-4.9); Lymphocytes Percent Auto 3.4 % (20-40); MANUAL DIFF FLAG NO; Mean Corpuscular HGB Conc 36.3 g/dl (31.0-36.0); Mean Corpuscular Hemoglobin 30.8 pg (27.0-33.0); Mean Platelet Volume 9.1 fL (9.4-12.4); Monocytes Absolute Auto 1.2 X10*3/uL (0.1-1.2); Monocytes Percent Auto 11.2 % (2-11); Neutrophils Absolute Auto 8.9 x10*3/uL (2.0-8.3); Neutrophils Percent Auto 84.3 % (45-73); Platelet Count 271 X10*3/uL (160-400); Red Blood Count 5.45 X10*6/uL (4.60-5.80); White Blood Count 10.6 X10*3/uL (4.8-10.8)
[2022-05-29 21:09] LABS: COVID-19 Test Positive (Negative); IDNOW Serial# 55D5AD1C
[2022-05-29 21:21] LABS: Anion Gap 16 (12-20); Blood Urea Nitrogen 13 mg/dL (9-16); Calcium 9.2 mg/dL (8.4-10.2); Carbon Dioxide 22 mmol/L (22-29); Chloride 101 mmol/L (96-108); Creatinine Clr Calc Pharmacy 93.9; Estimated Glomerular Filt Rate > 60; Glucose Random 105 mg/dL (60-115); Potassium 4.1 mmol/L (3.3-5.1); Sodium 135 mmol/L (135-145)
[2022-05-30] VITALS: BP 116/83; PULSE 102; RESP 18; TEMP 37.7; O2SAT 96
[2022-05-30 04:41] VITALS: BP 128/89; PULSE 79; RESP 22; O2SAT 94
[2022-05-30] MEDS: Ibuprofen 400 MG TABLET PO (06:48)
[2022-05-30] MEDS: Acetaminophen 325 MG TABLET 975 MG PO (06:48)
[2022-05-30] MEDS: Ondansetron ODT 4 MG TAB.RAPDIS TRANSLINGU (06:48)
--- NOTE | 2022-05-30 06:58 | ED_ITS ---
HPI - General Adult General Chief complaint: General Medical Stated complaint: N/V/Body Aches Time Seen by Provider: 05/30/22 06:34 Source: patient Mode of arrival: EMS History of Present Illness HPI narrative: 36-year-old male who presents via EMS with nausea, vomiting, weakness, body pain/fevers/headache that started this morning. Related Data Previous Rx's Medication Instructions Recorded dicyclomine 20 mg tablet 20 mg PO QID PRN abdominal pain 12/09/20 #20 tabs omeprazole 40 mg capsule,delayed 40 mg PO DAILY #30 caps 12/09/20 release ondansetron HCl 4 mg tablet 4 mg PO Q8H PRN nausea and 12/09/20 (Zofran) vomiting #14 tabs sucralfate 1 gram tablet (Carafate) 1 g PO Q6H #60 tabs 12/09/20 clonidine HCl 0.1 mg tablet 0.1 mg PO TID #60 tabs 01/25/21 famotidine 20 mg tablet 20 mg PO BID #30 tabs 01/25/21 folic acid 1 mg tablet 1 mg PO DAILY #30 tabs 01/25/21 levofloxacin 500 mg tablet 500 mg PO DAILY #5 tabs 01/25/21 metronidazole 500 mg tablet 500 mg PO BID #10 tabs 01/25/21 (Flagyl) thiamine mononitrate (vit B1) 100 100 mg PO DAILY #30 tabs 01/25/21 mg tablet ondansetron 4 mg disintegrating 4 mg PO Q8H PRN nausea and 05/30/22 tablet vomiting #7 tabs Allergies Allergy/AdvReac Type Severity Reaction Status Date / Time Penicillins [PENICILLINS] Allergy Severe HIVES Verified 01/19/21 15:25 Review of Systems Review of Systems: Pertinent positives and negatives as stated in HPI 10 point review of symptoms is otherwise negative. [facility] Past Medical History Source: nursing notes reviewed Medical History Abdominal pain Asthma Colitis Fever of unknown origin Gastritis Ulcer Social History Social History Household Members: Spouse Housing: House Do you presently have visiting nurse or other home services: No Alcohol intake: never Cigarette Packs Per Day: 1 Cigarettes Per Day: 20.0 Substance Use Type: Crack/Cocaine, Heroin and Marijuana Advance Directives: No Advance Directives Information Provided: No service: No Physical Exam ED Vital Signs: Vital Signs - 24 hr 05/29/22 20:49 05/30/22 00:00 05/30/22 04:41 Temperature 100.4 F 99.8 F Pulse Rate 103 H 102 H 79 Respiratory Rate 18 18 22 H Blood Pressure 94/73 116/83 128/89 Pulse Oximetry 96 96 94 Oxygen Delivery Method Room Air Room Air Room Air BMI result Body Mass Index 26.6 VITAL SIGNS: Reviewed. GENERAL: Well developed, well nourished, in no acute distress. HEAD: Normocephalic/atraumatic EYES: PERRLA, EOMI EARS: Ext canals without abnormality, TMs non-bulging and non-erythematous NOSE: Nares patent bilateral OROPHARYNX: no oral lesions noted, posterior pharynx clear but erythematous without noted tonsillar enlargement/erythema/exudates NECK: Supple, no adenopathy LUNGS: Normal breath sounds. No adventitious sounds or accessory muscle use. SpO2<96> CARDIOVASCULAR: Regular rate and rhythm without noted murmurs, no JVD or lower extremity edema. ABDOMEN: Soft, non-tender, non-distended with bowel sounds. . NEUROLOGIC: Alert and oriented x 4. Strength and sensation to light touch were grossly intact x 4. Course Course Course Narrative: 36-year-old male with history and clinical presentation after review of all investigations consistent with COVID-19 infection and viral syndrome. Patient was provided with combination analgesics, antiemetics as well as a throat lozenge and is otherwise stable for discharge to home. All results and findings were discussed with the patient at bedside. Medical Decision Making Lab Data Result diagrams: 05/29/22 20:56 05/29/22 20:56 Labs: Lab Results 05/29/22 05/29/22 05/29/22 Range/Units 20:56 20:56 20:56 WBC 10.6 (4.8-10.8) X10*3/uL RBC 5.45 (4.60-5.80) X10*6/uL Hgb 16.8 (14.0-18.0) g/dl Hct 46.3 (42.0-52.0) % MCV 85.0 (80.0-98.0) fL MCH 30.8 (27.0-33.0) pg MCHC 36.3 H (31.0-36.0) g/dl RDW 12.0 (11.0-16.0) % Plt Count 271 (160-400) X10*3/uL MPV 9.1 L (9.4-12.4) fL Immature Gran % (Auto) 0.5 H (0.0-0.4) % Neut % (Auto) 84.3 H (45-73) % Lymph % (Auto) 3.4 L (20-40) % Woodward % (Auto) 11.2 H (2-11) % Eos % (Auto) 0.0 (0-4) % Baso % (Auto) 0.6 (0-2) % Lymph # (Auto) 0.4 L (1.2-4.9) X10*3/uL Woodward # (Auto) 1.2 (0.1-1.2) X10*3/uL Eos # (Auto) 0.0 (0.0-0.4) X10*3/uL Baso # (Auto) 0.1 (0.0-0.2) X10*3/uL Abs Immat Gran (auto) 0.05 H (0.00-0.03) X10*3/uL Absolute Neuts (auto) 8.9 H (2.0-8.3) x10*3/uL Absolute Nucleated RBC 0.000 (0.0-0.012) X10*3/uL Nucleated RBC % (auto) 0.0 (0.0-0.2) /100WBC Sodium 135 (135-145) mmol/L Potassium 4.1 D (3.3-5.1) mmol/L Chloride 101 (96-108) mmol/L Carbon Dioxide 22 (22-29) mmol/L Anion Gap 16 (12-20) BUN 13 (9-16) mg/dL Creatinine 1.00 (0.5-1.4) mg/dL Estim Creat Clear Calc 93.9 Estimated GFR > 60 Random Glucose 105 (60-115) mg/dL Calcium 9.2 (8.4-10.2) mg/dL COVID-19 (BRITNI) Positive A (Negative) COVID-19 Clin Com See Note Discharge Plan Discharge Clinical Impression: Viral syndrome, Lab test positive for detection of COVID-19 virus Patient Disposition: Home, Self-Care Instructions: Viral Syndrome (ED), COVID-19 (Coronavirus Disease 2019) (ED) Additional Instructions: 1. You have been diagnosed with COVID-19 and should isolate for 5 days and then follow all [place] and Federal guidelines regarding COVID-19 infection and return to work. 2. Resume all home medications as prescribed. 3. Recommend [id number] Tylenol/ibuprofen as needed for headaches, body aches, temperatures greater than 100.4, continue to drink plenty of water and you have been provided with a prescription for antinausea medication. Your appetite will gradually return. 4. Follow-up with your primary care provider in the next 1-2 days via telemedicine appointment. Return to the ER for worsening symptoms. Prescriptions: New ondansetron 4 mg tablet,disintegrating 4 mg PO Q8H PRN (Reason: nausea and vomiting) Qty: 7 0RF No Action omeprazole 40 mg capsule,delayed release(DR/EC) 40 mg PO DAILY Qty: 30 0RF sucralfate [Carafate] 1 gram tablet 1 g PO Q6H Qty: 60 0RF dicyclomine 20 mg tablet 20 mg PO QID PRN (Reason: abdominal pain) Qty: 20 0RF clonidine HCl 0.1 mg Tablet 0.1 mg PO TID Qty: 60 0RF Protocol: Hold for SBP< HOLD for SBP < : 90 folic acid 1 mg Tablet 1 mg PO DAILY Qty: 30 0RF thiamine mononitrate (vit B1) 100 mg Tablet 100 mg PO DAILY Qty: 30 0RF levofloxacin 500 mg tablet 500 mg PO DAILY Qty: 5 0RF metronidazole [Flagyl] 500 mg tablet 500 mg PO BID Qty: 10 0RF famotidine 20 mg Tablet 20 mg PO BID Qty: 30 0RF ondansetron HCl [Zofran] 4 mg tablet 4 mg PO Q8H PRN (Reason: nausea and vomiting) Qty: 14 0RF
[2022-05-30 07:27] VITALS: BP 111/66; PULSE 77; RESP 17; TEMP 36.7; O2SAT 93
[2022-05-30] MEDS: Throat Lozenge, Medicated LOZENGE 1 LOZENGE MUCOUS MEM (07:29)
== END 2022-05-30 07:30 | disposition home or self-care (01) ==
PROVIDERS: Emergency Provider Student in an Organized Health Care Education/Training Program
DX: U07.1 COVID-19 (principal); B34.9 Viral infection, unspecified; R11.2 Nausea with vomiting, unspecified; F17.210 Nicotine dependence, cigarettes, uncomplicated
CPT/HCPCS: 71045; 80048; 85025; 87635; 99283; 99284

== ENCOUNTER 2024-08-02 13:17 | Outpatient (REF) | payer MEDICAID, SELFPAY ==
[2024-08-02 17:00] LABS: Alanine Aminotransferase 11 U/L (0-40); Albumin Level 4.2 g/dL (3.5-5.0); Alkaline Phosphatase 64 U/L (39-117); Aspartate Amino Transferase 18 U/L (5-37); Bilirubin Direct 0.2 mg/dL (0.0-0.5); Bilirubin Total 0.3 mg/dL (0.0-1.0); Total Protein 6.7 g/dL (6.5-8.0)
[2024-08-03 08:40] LABS: HBc Num1 6.33 S/CO (0.00-0.79); HBsAGNum1 0.49 S/CO (0.00-0.99); HIV AB/AG Nonreactive (Nonreactive); HIV Num 1 0.06 S/CO (0.00-0.99); Hepatitis B Surface Antigen Negative (Negative); ~HepC Num1 0.07 S/CO (0.00-0.79); ~Hepatitis B Surface Antibody REACTIVE (Nonreactive); ~Hepatitis C Antibody Nonreactive (Nonreactive)
[2024-08-03 08:45] LABS: Syphilis Screen Nonreactive (Nonreactive)
[2024-08-03 08:57] LABS: Hepatitis A Antibody IgG REACTIVE (Nonreactive)
[2024-08-03 11:54] LABS: HBc Num2 6.31 S/CO; HBc Num3 6.03 S/CO; Hepatitis B Core Antibody Reactive (Nonreactive)
[2024-08-05 04:33] LABS: TS Negative Control Passed; TS Panel A 4; TS Panel B 3; TS Positive Control Passed; TSpotTB Negative (Negative)
== END 2024-08-02 13:18 | disposition home or self-care (01) ==
LOC: HO.HHCL 13:17
PROVIDERS: Visit Provider Emergency Medicine
DX: F11.20 Opioid dependence, uncomplicated (principal)
CPT/HCPCS: 36415; 80076; 86481; 86704; 86706; 86708; 86780; 86803; 87340; 87389

== ENCOUNTER 2024-11-08 17:08 | Emergency (ER) | payer MEDICAID, SELFPAY ==
[2024-11-08 17:10] VITALS: BP 109/74; PULSE 72; O2SAT 99
--- OUTSIDE RECORDS SUMMARY | 2024-11-08 18:11 | XMS_ITS | Clinical Summary ---
Author Organization [employer] Address [address] [place] [address] Care Team Providers Care Black Oxide Operator Name Role Phone Unavailable Primary Care Provider Unavailabl e Allergies Active Allergy Reactions Criticality Noted Date Comments Penicillins 07/15/2023 Medications nicotine (Nicoderm CQ) 14 MG/24HR patch Place 1 patch on the skin 1 (one) time each day at the same time. 42 patch 07/11/2024 Active nicotine (Nicoderm CQ) 7 MG/24HR patch Place 1 patch on the skin 1 (one) time each day at the same time. 14 patch 07/11/2024 Active nicotine polacrilex (Commit) 2 MG lozenge Dissolve 1 lozenge (2 mg) in the mouth every 2 (two) hours if needed for smoking cessation. 110 lozenge 07/11/2024 Active buprenorphine ER (Sublocade) 100 mg/0.5mL injectionIndica tions:Uncomplic ated opioid dependence (CMS/HCC) Inject 0.5 mL (1 each) under the skin every month to absorb continually. 0.5 mL 5 07/25/2024 01/22/20 25 Active Active Problems Problem Noted Date Diagnosed Date Opioid dependence, uncomplicated 08/22/2024 Tobacco dependence 07/11/2024 Gastritis 07/11/2024 Anxiety 07/11/2024 Encounters Date Type Department Care Team Description 08/22/2024 2:15 PM EST Office Visit [facility] [address] [place] [address] Reji Villalobos MD Opioid dependence, uncomplicated (CMS/HCC) (Primary Dx) 08/22/2024 Travel from Last 3 Months Social History Tobacco Use Types Packs/Day Years Used Date Smoking Tobacco: Every Day Cigarettes Smokeless Tobacco: Never Tobacco Cessation:Ready to Q uit: Not Asked; Counseling Given: Not Answered Alcohol Answer Date Recorded Frequency of Alcohol Consumption Not on file 07/07/2024 Average Number of Drinks Not on file 024 Frequency of Binge Drinking Not on file 06/19 Score 0 07/07/2024 Housing Stability Answer Date Recorded What is your housing situation today? I have moe koehler 07/07/[address] you li ve. Do you have problems with any of the following? None of the above 07/07/2024 Food Insecurity Answer Date Recorded Within the past 12 months, y ou worried that your food would run out before you got money to buy more: Never True 07/07/2024 Within the past 12 months,th e food you bought just didn't last and you didn't have enough money to get more: Never True Transportation Answer Date Recorded In the past 12 months, has l ack of transportation kept you from medical appts, meetings, work or from getting things needed for daily living? No 07/07/2024 Utilities Answer Date Recorded In the past 12 months, has t he electric, gas, oil or water company threatened to shut off services in your home? No 07/07/2024 Depression Answer Date Recorded Patient Health Questionnaire-2 Score 0 07/07/2024 Internet Access Answer Date Recorded Internet Access Q1 No 07/07/2024 Internet Access Q2 I do not want or need it 06/19 Sex and Gender Information Value Date Recorded Sex Assigned at Male 08/18/2022 10:18 AM EDT Legal Sex Male 10:18 AM EDT Gender Identity Male 08/18/2022 10:18 AM EDT Sexual Orientation Straight 08/18/2022 10 :18 AM EDT Last Filed Vital Signs Vital Sign Reading Time Taken Comments Blood Pressure 102/56 07/07/2024 2:51 PM EDT Pulse 60 07/07/2024 2:51 PM EDT Temperature 36.4 ??C (97.5 ??F) 07/07/2024 2:51 PM ED T Respiratory Rate - - Oxygen Saturation - - Inhaled Oxygen Concentration - - Weight - - Height - - Body Mass Index - - Plan of Treatment Health Maintenance Due Date Last Done Comments Dental Oral Exam 1987 Dental Prophylaxis 1987 Dental X-Ray: Bitewings 1987 Lipid Panel 1987 Pneumococcal Vaccine: Pediatrics (0 to 5 Years) and At-Risk Patients (6 to 64 Years) (1 of 2 - PCV) 1993 DTaP/Tdap/Td Vaccines (1 - Tdap) 2006 Hepatitis A Vaccines (1 of 2 - Risk 2-dose series) 2006 Hepatitis B Vaccines (1 of 3 - 19+ 3-dose series) 2006 COVID-19 Vaccine ( - 2023-2 5 season) 2024 07/25/2021, 06/27/2021 Influenza Vaccine (#1) 2024 Alcohol/Substance Use Screening 07/07/2025 07/07/2024 Depression Screening 07/07/2025 07/07/2024, 07/07/2024 SDOH Screening 07/07/2025 07/07/2024 Tobacco Screening 08/22/2025 08/22/2024 Dental X-Ray: Full Mouth 07/16/2026 07/15/2023 Zoster Vaccines (1 of 2) 2037 RSV Patients and Patients Aged 60 years or older (1 - 1-dose 75+ series) 2062 HIV Screening Completed 08/02/2024 Hepatitis C Screening Completed 08/02/2024 HIB Vaccines Aged Out No longer eligi ble based on patient's age to complete this topic HPV Vaccines Aged Out No longer eligi ble based on patient's age to complete this topic IPV Vaccines Aged Out No longer eligi ble based on patient's age to complete this topic Meningococcal Vaccine Aged Out No ruiz maira eligible based on patient's age to complete this topic RSV under 20 months Aged Out No longe r eligible based on patient's age to complete this topic Rotavirus Vaccines Aged Out No longer eligible based on patient's age to complete this topic Procedures Procedure Name Priority Date/Time Associated Diagnosis Comments POCT ILA-14 URINE DRUG SCREEN Routine 08/22/2024 2:55 PM EST Opioid dependence, uncomplicated (CMS/HCC) HEPATITIS C AB W/REFL TO HCV RNA, QN, PCR Routine 08/02/2024 1:20 PM EDT Uncomplicated opioid dependence (CMS/HCC) HIV 1/2 ANTIGEN/ANTIBODY, FOURTH GENERATION W/RFL Routine 08/02/2024 1:20 PM EDT Uncomplicated opioid dependence (CMS/HCC) PANORAMIC RADIOGRAPHIC IMAGE Routine 07/15/2023 3:00 PM EDT from Last 3 Months or Most Recently Relevant to Health Maintenance Results * POCT ILA-14 Urine Drug Screen (08/22/2024 2:55 PM EST) Pathologist [facility] THC Positive Cocaine Screen, Urine Negative Opiate Screen, Urine Negative Methamphetamine Screen Urine Negative Amphetamine Screen, Urine Negative Benzodiazepines Screen, Urine Negative Barbiturate Screen, Urine Negative Methadone Screen, Urine Negative Buprenophine Screen, Urine Positive TCA, Urine Negative MDMA Urine Negative ng/mL Oxycodone Screen, Urine Negative Phencyclidine (PCP), Urine Negative Propoxyphene, Urine Negative Urine Urine specimen obtained by clean catch procedure / Unknown 08/22/2024 2:55 PM EST us Reji Villalobos MD POINT OF CARE TEST ENTER/EDIT OR DERABLES Final Result * Hepatitis C Antibody with Reflex to HCV, RNA, Quantitative, Real-Time PCR (08/02/2024 1:20 PM EDT) Pathologist [facility] Hepatitis C Antibody Nonreactive Nonreactive [facility] Comment:Antibodies to HCV no t detected; does not exclude early acuteHCV infection. Blood Venous blood specimen / Unknown 08/02/2024 1:20 PM EDT 08/02/2024 4:20 PM EDT us Reji Villalobos MD LAB BLOOD ORDERABLES Final Resul t [facility] [address] [place] [phone] * HIV-1/2 Antigen and Antibodies, Fourth Generation, with Reflexes (08/02/2024 1:20 PM EDT) Pathologist [facility] HIV AB/AG Nonreactive Nonreactive [facility] Comment:HIV-1 p24 Ag and/or HIV-1/HIV-2 Ab not detected.A test result that is nonreactive does not exclude thepossibility of exposure to or infection with HIV-1 and/orHIV-2. Nonreactive results in this assay for individualswith prior exposure to HIV-1 and/or HIV-2 may be due toantigen and antibody levels that are below the limit ofdetection of this assay.The [employer] [employer] HIV Ag/Ab Combo assay result andsupplemental assay results should be interpreted inconjunction with the patient's clinical presentation,history and other laboratory results. If the results areinconsistent with clinical evidence, additional testing issuggested to confirm the result. Blood Venous blood specimen / Unknown 08/02/2024 1:20 PM EDT 08/02/2024 4:20 PM EDT us Reji Villalobos MD LAB BLOOD ORDERABLES Final Resul t [facility] [address] [place] [address] [phone] from Last 3 Months or Most Recently Relevant to Health Maintenance Insurance [facility] [place]
--- OUTSIDE RECORDS SUMMARY | 2024-11-08 18:11 | XMS_ITS | Encounter Summary ---
Author Organization [employer] Address [address] [place] [address] Care Team Providers Care Bulk Pigment Reducer Name Role Phone Unavailable Primary Care Provider Unavailabl e Reason for Visit * Reason Comments Med Refill Encounter Details Date Type Department Care Team ([facility] st Contact Info) Description 07/29/2024 Refill [facility] [address] [place] [address] Tammy Dang MD [address] [place] [address] Opioid use disorder Social History Tobacco Use Types Packs/Day Years Used Date Smoking Tobacco: Every Day Cigarettes Smokeless Tobacco: Never Alcohol Answer Date Recorded Frequency of Alcohol Consumption Not on file 07/07/2024 Average Number of Drinks Not on file 024 Frequency of Binge Drinking Not on file 06/19 Score 0 07/07/2024 Housing Stability Answer Date Recorded What is your housing situation today? I have moe zakia 07/07/[address] you li [...] t he electric, gas, oil or water [employer] threatened to shut off services in your [...] Orientation Straight 08/18/2022 10 :18 AM EDT documented as of this encounter Plan of Treatment Not on file documented as of this encounter Visit Diagnoses Diagnosis Opioid use disorder documented in this encounter
--- OUTSIDE RECORDS SUMMARY | 2024-11-08 18:11 | XMS_ITS | Encounter Summary ---
Author Organization [facility] [employer] Address [address] [place] [address] Care Team Providers Care Time Study Technologist Name Role Phone Unavailable Primary Care Provider Unavailabl e Encounter Details Date Type Department Care Team (Late st Contact Info) Description 07/22/2024 Orders Only [facility] [address] [place] [address] Shira Mojica, GIOVANNI Social History Tobacco Use Types Packs/Day Years [...] documented as of this encounter Visit Diagnoses Not on filedocumented in this encounter
--- OUTSIDE RECORDS SUMMARY | 2024-11-08 18:12 | XMS_ITS | Encounter Summary ---
Author Organization [employer] Address [address] [place] [address] Care Team Providers Care Bacteriologist Food Name Role Phone Unavailable Primary Care Provider Unavailabl e Encounter Details Date Type Department Care Team (Late st Contact Info) Description 07/15/2023 Abstract [facility] [address] [place] [address] Adriana Seth, COY [address] [place] [address] Social History Tobacco Use Types Packs/Day Years Used Date Smoking Tobacco: Never Assessed Sex and Gender Information Value Date Recorded [...]
--- OUTSIDE RECORDS SUMMARY | 2024-11-08 18:12 | XMS_ITS | Encounter Summary ---
Author Organization [employer] Address [address] [place] [address] Care Team Providers Care Speeder Frame Tender Name Role Phone Unavailable Primary Care Provider Unavailabl e Encounter Details Date Type Department Care Team (Late st Contact Info) Description 07/15/2023 Abstract [facility] AD[facility] DENT[facility] [address] [place] [address] Adriana Seth, COY [address] [place] [address] Social History Tobacco Use Types Packs/Day Years [...]
[2024-11-08 18:19] VITALS: BP 150/72; PULSE 94; RESP 16; TEMP 36.8; O2SAT 99; BMI 22.3
--- NOTE | 2024-11-08 18:19 | ED_ITS ---
HPI - URI/Sore Throat General Chief Complaint: Upper Respiratory Symptoms Stated Complaint: flu symptoms Time Seen by Provider: 11/08/24 20:22 Source: patient and EMS Mode of arrival: EMS Limitations: no limitations History of Present Illness ED Provider: Twila Garcia PA-C HPI Narrative: 38 yo male with history of ETOH use disorder, polysubstance use disorder who presents to the ER from home via EMS for evaluation of flu like symptoms that started yesterday. his GF recently had the flu. he reports body aches/pain, fever, cold sweats. he has been vomiting. no abdominal pain unless he is actively vomiting. reports 9/10 diffuse body pain at this time. MD elicited complaint: fever, nasal congestion and other (Diffuse body aches) Onset (ago): day(s) (1) Severity: severe Able to tolerate fluids by mouth: Yes Exacerbating factors: nothing Relieving factors: nothing Context: sick contacts Associated symptoms: fever, headache, rhinorrhea, nasal congestion and cough Treatments prior to arrival: none Related Data Previous Rx's ?Medication ?Instructions ?Recorded dicyclomine 20 mg tablet 20 mg PO QID PRN abdominal pain 12/09/20 #20 tabs omeprazole 40 mg capsule,delayed 40 mg PO DAILY #30 caps 12/09/20 release ondansetron HCl 4 mg tablet 4 mg PO Q8H PRN nausea and 12/09/20 (Zofran) vomiting #14 tabs sucralfate 1 gram tablet (Carafate) 1 g PO Q6H #60 tabs 12/09/20 clonidine HCl 0.1 mg tablet 0.1 mg PO TID #60 tabs 01/25/21 famotidine 20 mg tablet 20 mg PO BID #30 tabs 01/25/21 folic acid 1 mg tablet 1 mg PO DAILY #30 tabs 01/25/21 levofloxacin 500 mg tablet 500 mg PO DAILY #5 tabs 01/25/21 metronidazole 500 mg tablet 500 mg PO BID #10 tabs 01/25/21 (Flagyl) thiamine mononitrate (vit B1) 100 100 mg PO DAILY #30 tabs 01/25/21 mg tablet ondansetron 4 mg disintegrating 4 mg PO Q8H PRN nausea and 05/30/22 tablet vomiting #7 tabs acetaminophen 500 mg tablet 1,000 mg (2 x 500 mg) PO Q6H PRN 11/08/24 (Tylenol Extra Strength) fever or pain #20 tabs ibuprofen 600 mg tablet 600 mg PO Q8H PRN fever or pain 11/08/24 #14 tabs Allergies Allergy/AdvReac Type Severity Reaction Status Date / Time Penicillins [PENICILLINS] Allergy Severe HIVES Verified 11/08/24 18:21 Review of Systems Review of Systems: Yes all other systems are reviewed and are negative [facility] Past Medical History Medical History Abdominal pain Asthma Colitis Fever of unknown origin Gastritis Ulcer Social History Social History Household Members: Spouse Housing: House Do you presently have visiting nurse or other home services: No Alcohol intake: never Comment: patient is due to be potentially discharged today. made low risk. Cigarette Packs Per Day: 1 Cigarettes Per Day: 20.0 Use of substances other than those prescribed or required for medical reasons: No Substance Use Type: Crack/Cocaine, Heroin and Marijuana Advance Directives: Yes Advance Directives on File: Yes Advance Directives Date on File: 01/28/21 service: No Physical Exam Vital Signs: Vital Signs: Last Vital Signs Temp 99.3 F 11/08/24 20:39 Pulse 83 11/08/24 20:39 Resp 20 11/08/24 20:39 BP 108/72 11/08/24 20:39 Pulse Ox 96 11/08/24 20:39 O2 Del Method Room Air 11/08/24 20:39 BMI result Body Mass Index 22.3 Appearance: Alert. Oriented X3. Appears unwell, pale Head: normocephalic, atraumatic. Eyes: Pupils equal, round and reactive to light. ENT: Pharynx normal. No tonsillar swelling or exudate. Neck: Normal inspection. Neck supple. CVS: Normal heart rate and rhythm. Pulses normal. Respiratory: No respiratory distress. Breath sounds normal. Abdomen: Soft and nontender. +BS x4 Skin: Skin warm and dry. Normal skin color. Normal skin turgor. No rashes. Extremities: No lower extremity edema. No joint swelling. Neuro/psych: Oriented X 3. Grossly normal, nonfocal Normal speech and cognition. Medications Administered Discontinued Medications Generic Name Dose Route Start Last Admin Trade Name Freq PRN Reason Stop Dose Admin Ibuprofen 600 mg 11/08/24 20:27 11/08/24 20:33 Ibuprofen 600 Mg Tablet PO 11/08/24 20:28 600 mg ONCE ONE Administration Medical Decision Making Medical Decision Making [facility] Narrative: 38-year-old male presents to the ER via EMS for evaluation of flu symptoms since yesterday. He has known contact to influenza through his girlfriend who had the virus last week. He is not vaccinated. He reports diffuse severe body aches, chills, headache. He has minimal cough, no shortness a breath or chest pain. No abdominal pain, nausea, vomiting, diarrhea. His vital signs are stable and physical exam is unremarkable. Lab work today shows he has positive influenza a. Counseled on diagnosis and symptomatic care. Stable for discharge home. Differential Diagnosis Differential Diagnoses: The differential diagnosis associated with the presentation includes strep, covid, flu, rsv, other viral syndrome, bronchitis, pneumonia, no evidence of peritonsillar abcsess or retropharyngeal abscess Lab Data [facility] Lab Attestation statement: I reviewed the patient's lab results. Labs: Lab Results 11/08/24 Range/Units 18:01 Influenza Type A (PCR) POSITIVE A (Negative) Influenza Type B (PCR) NEGATIVE (Negative) RSV RNA Qual (PCR) NEGATIVE (Negative) SARS-CoV-2 RNA (RT-PCR) NEGATIVE (Negative) Independent Historian Clinical information obtained from an independent historian. History obtained from or confirmed by: EMS External Record Review External record reviewed: Prior outpatient labs Tests considered The following testing was considered but not selected: Consider chest x-ray and lab workup however would not international exchange coordinator Prescription Management I considered prescription management with: Antiviral Critical Care Time Critical Care Time Critical Care Time: No Discharge Plan Discharge Clinical Impression: Influenza Patient Disposition: Home, Self-Care Instructions: Influenza (ED) Additional Instructions: You were found to be Influenza A POSITIVE today. Rest. Drink plenty of fluids. Do not go out in public while you are not feeling well. Take over the counter cold/flu medications as needed for your symptoms. Take Tylenol and/or Motrin as needed for fevers and body aches. Follow up with your doctor as needed. If you develop new or worsening symptoms call 911 or come back to the ER for further evaluation. Prescriptions: New ibuprofen 600 mg tablet 600 mg PO Q8H PRN (Reason: fever or pain) Qty: 14 0RF acetaminophen [Tylenol Extra Strength] 500 mg tablet 1,000 mg PO Q6H PRN (Reason: fever or pain) Qty: 20 0RF No Action omeprazole 40 mg capsule,delayed release(DR/EC) 40 mg PO DAILY Qty: 30 0RF sucralfate [Carafate] 1 gram tablet 1 g PO Q6H Qty: 60 0RF dicyclomine 20 mg tablet 20 mg PO QID PRN (Reason: abdominal pain) Qty: 20 0RF clonidine HCl 0.1 mg Tablet 0.1 mg PO TID Qty: 60 0RF Protocol: Hold for SBP< HOLD for SBP < : 90 folic acid 1 mg Tablet 1 mg PO DAILY Qty: 30 0RF thiamine mononitrate (vit B1) 100 mg Tablet 100 mg PO DAILY Qty: 30 0RF levofloxacin 500 mg tablet 500 mg PO DAILY Qty: 5 0RF metronidazole [Flagyl] 500 mg tablet 500 mg PO BID Qty: 10 0RF famotidine 20 mg Tablet 20 mg PO BID Qty: 30 0RF ondansetron HCl [Zofran] 4 mg tablet 4 mg PO Q8H PRN (Reason: nausea and vomiting) Qty: 14 0RF ondansetron 4 mg tablet,disintegrating 4 mg PO Q8H PRN (Reason: nausea and vomiting) Qty: 7 0RF Stand Alone Forms: Work/School Release Interventions: ED Discharge Assessment Last Done: 11/08/24 20:39 Discharge Date/Time: 11/08/24 20:40 Print Language: Luxembourgish
[2024-11-08 18:45] LABS: Influenza A PCR POSITIVE (Negative); Influenza B PCR NEGATIVE (Negative); Resp Syncy Virus RNA Qual PCR NEGATIVE (Negative); SARS COV2 PCR INHOUSE NEGATIVE (Negative)
[2024-11-08 20:27] VITALS: BP 108/72; PULSE 83; RESP 20; TEMP 37.4; O2SAT 96
[2024-11-08] MEDS: Ibuprofen 600 MG TABLET PO (20:33)
[2024-11-08 20:39] VITALS: BP 108/72; PULSE 83; RESP 20; TEMP 37.4; O2SAT 96
== END 2024-11-08 20:40 | disposition home or self-care (01) ==
PROVIDERS: Physician Assistant; Emergency Provider Emergency Medicine Emergency Medical Services
DX: J10.1 Influenza due to other identified influenza virus with other respiratory manifestations (principal); M79.10 Myalgia, unspecified site; R50.9 Fever, unspecified; R11.2 Nausea with vomiting, unspecified; R51.9 Headache, unspecified; R09.81 Nasal congestion; R05.9 Cough, unspecified; Z03.818 Encounter for observation for suspected exposure to other biological agents ruled out
CPT/HCPCS: 0241U; 99283; 99284